=== PATIENT | male | born 1940 | race Caucasian/White ===

== ENCOUNTER 2017-04-16 11:21 | Inpatient (IN) | payer OTHER ==
--- NOTE | 2017-04-16 11:29 | PDOC ---
History of Present Illness - History of Present Illness Initial Comments: 04/16/17 12:19 Mr. Yo is a 76 year old male with a significant past medical history of Colon Cancer with ileostomy bag at 10 of 12 rounds of chemotherapy who presents to the emergency department with olivia blood in his ileostomy bag. The patient denies chest pain, shortness of breath, headache and dizziness. Denies fever, chills, nausea, vomit, diarrhea and constipation. Denies dysuria, frequency, urgency and hematuria. Allergies: KNDA Past surgical history: 1997 R hip replacement and 2012 Right heel surgery Social history: Occasional social drinking (1 beer) PMD - Regla Ivan 04/16/17 12:20 <Rigo Ceron - Last Filed: 04/16/17 16:54> <Olivia Domingo - Last Filed: 04/16/17 17:11> - General Stated Complaint: RECTAL BLEEDING Time Seen by Provider: 04/16/17 11:28 Past History - Past Medical History Anemia: No Asthma: No Cancer: No Cardiac Disorders: No CVA: No COPD: No CHF: No Dementia: No Diabetes: No GI Disorders: No Disorders: No HTN: Yes Hypercholesterolemia: No Liver Disease: No Seizures: No Thyroid Disease: No - Surgical History Orthopedic Surgery: Yes (rt hip replacement 1996) - Immunization History Immunization Up to Date: Yes - Psycho/Social/Smoking Cessation Hx Anxiety: No Suicidal Ideation: No Smoking Status: No Smoking History: Never smoked Have you smoked in the past 12 months: No Number of Cigarettes Smoked Daily: 0 Hx Alcohol Use: No Drug/Substance Use Hx: No Substance Use Type: Alcohol Hx Substance Use Treatment: No <Rigo Ceron - Last Filed: 04/16/17 16:54> <Olivia Domingo - Last Filed: 04/16/17 17:11> - Past Medical History Allergies/Adverse Reactions: Allergies Allergy/AdvReac Type Severity Reaction Status Date / Time No Known Allergies Allergy Verified 04/16/17 11:52 Home Medications: Ambulatory Orders Acetaminophen 650 mg PO BID 04/16/17 Ascorbic Acid [Vitamin C] 500 mg PO DAILY 04/16/17 Diphenoxylate HCl/Atropine [Diphenoxylate-Atrop 2.5-0.025] 1 each PO DAILY 04/16 Loperamide HCl [Loperamide] 2 mg PO TID 04/16/17 Melatonin 3 mg PO HS 04/16/17 Multivitamin [Poly-Vitamin] 1 each PO DAILY 04/16/17 Nebivolol HCl [Bystolic] 2.5 mg PO BID 04/16/17 Ondansetron [Zofran *Odt*] 8 mg SL TID 04/16/17 Prochlorperazine Maleate 10 mg PO DAILY 04/16/17 Ranitidine [Zantac -] 150 mg PO DAILY 04/16/17 Zinc Sulfate 220 mg PO DAILY 04/16/17 Review of Systems - Review of Systems Comments:: 04/16/17 12:20 GENERAL/CONSTITUTIONAL: No fever or chills. No weakness. HEAD, EYES, EARS, NOSE AND THROAT: No change in vision. No ear pain or discharge. No sore throat. CARDIOVASCULAR: No chest pain or shortness of breath RESPIRATORY: No cough, wheezing, or hemoptysis. GASTROINTESTINAL: +blood noted in ileostomy bag and some noted around site. No nausea, vomiting, diarrhea or constipation. GENITOURINARY: No dysuria, frequency, or change in urination. MUSCULOSKELETAL: No joint or muscle swelling or pain. No neck or back pain. SKIN: No rash NEUROLOGIC: No headache, vertigo, loss of consciousness, or change in strength/ sensation. ENDOCRINE: No increased thirst. No abnormal weight change HEMATOLOGIC/LYMPHATIC: No anemia, easy bleeding, or history of blood clots. ALLERGIC/IMMUNOLOGIC: No hives or skin allergy. 04/16/17 12:25 <Rigo Ceron - Last Filed: 04/16/17 16:54> *Physical Exam - Physical Exam Comments: 04/16/17 12:20 GENERAL: Awake, alert, and fully oriented, in no acute distress HEAD: No signs of trauma, normocephalic, atraumatic EYES: PERRLA, EOMI, sclera anicteric, conjunctiva clear ENT: Auricles normal inspection, hearing grossly normal, nares patent, oropharynx clear without exudates. Moist mucosa NECK: Normal ROM, supple, no lymphadenopathy, JVD, or masses LUNGS: No distress, speaks full sentences, clear to auscultation bilaterally HEART: Regular rate and rhythm, normal S1 and S2, no murmurs, rubs or gallops, peripheral pulses normal and equal bilaterally. ABDOMEN: +blood noted in ileostomy bag. Soft, nontender, normoactive bowel sounds. No guarding, no rebound. No masses EXTREMITIES: Normal inspection, Normal range of motion, no edema. No clubbing or cyanosis. NEUROLOGICAL: Cranial nerves II through XII grossly intact. Normal speech, normal gait, no focal sensorimotor deficits SKIN: Warm, Dry, normal turgor, no rashes or lesions noted. 04/16/17 12:25 <Rigo Ceron - Last Filed: 04/16/17 16:54> - Vital Signs Last Vital Signs Temp Pulse Resp BP Pulse Ox 97.9 F 78 17 127/58 100 04/16/17 11:47 04/16/17 11:47 04/16/17 12:05 04/16/17 11:47 04/16/17 12:05 <Olivia Domingo - Last Filed: 04/16/17 17:11> ED Treatment Course - LABORATORY CBC & Chemistry Diagram: 04/16/17 12:05 04/16/17 12:21 <Rigo Ceron - Last Filed: 04/16/17 16:54> - LABORATORY CBC & Chemistry Diagram: 04/16/17 12:05 04/16/17 12:21 - ADDITIONAL ORDERS Additional order review: Laboratory Results 04/16/17 04/16/17 04/16/17 14:11 12:44 12:44 INR 1.64 H PTT (Actin FS) 44.5 H D Sodium Potassium Chloride Carbon Dioxide Anion Gap BUN Creatinine Creat Clearance w eGFR Random Glucose Calcium Total Bilirubin AST ALT Alkaline Phosphatase Total Protein Albumin Lipase Urine Color Yellow Urine Appearance Clear Urine pH 5.0 Urine Protein Negative Urine Glucose (UA) Negative Urine Ketones Negative Urine Blood Negative Urine Nitrite Negative Urine Bilirubin Negative Urine Urobilinogen Negative Ur Leukocyte Esterase Negative Blood Type A NEGATIVE Antibody Screen Negative 04/16/17 12:21 INR PTT (Actin FS) Sodium 142 Potassium 4.3 Chloride 109 H Carbon Dioxide 26 Anion Gap 7 L BUN 23 H D Creatinine 0.7 Creat Clearance w eGFR > 60 Random Glucose 118 H D Calcium 7.6 L Total Bilirubin 1.1 H D AST 50 H D ALT 26 D Alkaline Phosphatase 184 H D Total Protein 5.2 L Albumin 2.5 L Lipase 130 Urine Color Urine Appearance Urine pH Urine Protein Urine Glucose (UA) Urine Ketones Urine Blood Urine Nitrite Urine Bilirubin Urine Urobilinogen Ur Leukocyte Esterase Blood Type Antibody Screen 04/16/17 12:05 RBC 2.30 L D MCV 99.7 H MCHC 33.5 RDW 23.2 H D MPV 8.5 Neutrophils % 69.5 Lymphocytes % 15.9 D Monocytes % 13.7 H Eosinophils % 0.2 D Basophils % 0.7 <Olivia Domingo - Last Filed: 04/16/17 17:11> Medical Decision Making - Medical Decision Making 04/16/17 12:26 Mr. Yo presents in no acute distress complaining of olivia blood in his ileostomy bag. With cancer history will check labs for PT/PTT /INR. Also will check abdominal CT w/ w/out contrast pending kidney functions. 04/16/17 16:[address] Marquez <Rigo Ceron - Last Filed: 04/16/17 16:54> *DC/Admit/Observation/Transfer - Attestations Physician Attestion: 04/16/17 12:26 I, Dr. Rigo Ceron, attest that this document has been prepared under my direction and personally reviewed by me in its entirety. I further attest, that it accurately reflects all work, treatment, procedures and medical decision -making performed by me. <Rigo Ceron - Last Filed: 04/16/17 16:54> - Discharge Dispostion Admit: Yes <Olivia Domingo - Last Filed: 04/16/17 17:11> Diagnosis at time of Disposition: Carcinoma of colon metastatic to liver, Bleeding from colostomy stoma Abdominal pain Qualifiers: Abdominal location: generalized Qualified Code(s): R10.84 - Generalized abdominal pain Anemia Qualifiers: Anemia type: unspecified type Qualified Code(s): D64.9 - Anemia, unspecified - Discharge Dispostion Condition at time of disposition: Improved - Referrals Referrals: Regla Ivan MD [Primary Care Provider] -
--- NOTE | 2017-04-16 12:02 | PDOC ---
Attending Attestation - HPI HPI: The patient is a 76 yo M with a PMHx of HTN, rectal CA, colostomy bag, foot ostemyelitis and dementia who presents BIBA from longterm with blood in colostomy bag since 6:30 this morning. Patient states his stool is typically a dark brown. He denies any oozing outside of the bag. Patient states that on Sep 12, 2016 he experienced knife-like abdominal pain and was seen here. Patient states he was taken to the OR that night for colostomy bag placement. Patient denies abdominal pain currently. Patient states hes currently receiving chemo treatments every two weeks for a total of 12 treatments. Patient notes he has 2 treatments left. Surgical Hx: hip replacement R. Left heel surgery. PCP: Dr. Ivan Oncologist: Dr. Contreras Allergies: NKDA Social Hx: occasional ETOH - Physicial Exam PE: GENERAL: AO x2, in no acute distress HEAD: No signs of trauma EYES: PERRLA, EOMI, sclera anicteric, conjunctiva clear ENT: Auricles normal inspection, hearing grossly normal, nares patent, oropharynx clear without exudates. Moist mucosa NECK: Normal ROM, supple, no lymphadenopathy, JVD, or masses LUNGS: Breath sounds equal, clear to auscultation bilaterally. No wheezes, and no crackles HEART: Regular rate and rhythm, normal S1 and S2, no murmurs, rubs or gallops ABDOMEN: Soft, nontender, normoactive bowel sounds. Ostomy pink. Not prolapsed. Functional. Fresh blood in bag oozing from mucosa. No tear or laceration to ostomy. No guarding, no rebound. No masses EXTREMITIES: Normal range of motion, no edema. No clubbing or cyanosis. No cords, erythema, or tenderness NEUROLOGICAL: Cranial nerves II through XII grossly intact. Normal speech, gait not assessed. SKIN: Warm, Dry, normal turgor, no rashes or lesions noted. - Medical Decision Making Will obtain: -PT PTT -type and screen -Coags -Abdominal CT with IV contrast Will reassess. Documentation prepared by Carmela Keith, acting as director medical economics for Vicente Domingo MD/. <Carmela Keith - Last Filed: 04/16/17 12:08> - ED Attending Attestation I have performed the following: I have examined & evaluated the patient, The case was reviewed & discussed with the resident, I agree w/resident's findings & plan, Exceptions are as noted <Vicente Domingo - Last Filed: 04/20/17 16:50> Discharge Disposition - Discharge Dispostion Last Admission D/C Date: 09/20/16 <Vicente Domingo - Last Filed: 04/20/17 16:50> - Diagnosis Colon cancer metastasized to liver, Bleeding from colostomy stoma Abdominal pain Qualifiers: Abdominal location: generalized Qualified Code(s): R10.84 - Generalized abdominal pain Anemia Qualifiers: Anemia type: unspecified type Qualified Code(s): D64.9 - Anemia, unspecified - Discharge Dispostion Condition at time of disposition: Improved
[2017-04-16 12:35] LABS: BASOPHIL 0.7 % (0-2.0); EOSINOPHIL 0.2 % (0-4.5); MCH 33.4 pg (25.7-33.7); MCHC 33.5 g/dl (32.0-35.9); MEAN CELL VOLUME 99.7 fl (80-96); MEAN PLT VOLUME 8.5 fl (7.5-11.1); NEUTROPHILS 69.5 % (42.8-82.8); PLATELET COUNT 59 K/MM3 (134-434); RDW 23.2 % (11.9-15.9); WHITE BLOOD COUNT 3.7 K/mm3 (4.0-10.0)
[2017-04-16 12:48] LABS: INR 1.64 (0.82-1.09); PROTHROMBIN TIME (PATIENT) 18.2 SEC (9.98-11.88)
[2017-04-16 12:51] LABS: ACTIVATED PTT 44.5 SECONDS (26.9-34.4)
[2017-04-16 13:01] LABS: ALBUMIN 2.5 g/dl (3.4-5.0); ALK PHOS 184 U/L (45-117); ANION GAP 7 (8-16); BILIRUBIN,TOTAL 1.1 mg/dL (0.2-1.0); CALCIUM 7.6 mg/dL (8.5-10.1); CO2 26 mmol/L (21-32); CREATININE 0.7 mg/dL (0.7-1.3); GLUCOSE,RANDOM 118 mg/dL (74-106); SGOT/AST 50 U/L (15-37); SGPT/ALT 26 U/L (12-78); TOT PROT 5.2 g/dl (6.4-8.2)
[2017-04-16 13:57] LABS: PLATELET ESTIMATE DECREASED (NORMAL)
[2017-04-16 14:48] LABS: URINE APPEARANCE CLEAR; URINE BILIRUBIN NEGATIVE (NEGATIVE); URINE BLOOD NEGATIVE (NEGATIVE); URINE COLOR YELLOW; URINE GLUCOSE (UA) NEGATIVE (NEGATIVE); URINE KETONE NEGATIVE (NEGATIVE); URINE LEUK ESTERASE NEGATIVE (NEGATIVE); URINE NITRITE NEGATIVE (NEGATIVE); URINE PROTEIN NEGATIVE (NEGATIVE); URINE UROBILINOGEN NEGATIVE E.U./dl (0.2-1.0)
[2017-04-16 19:13] VITALS: BMI 24.8
[2017-04-16] MEDS ORDERED: ONDANSETRON *ODT* 4 MG TABLET SL PRN (22:30)
[2017-04-16] MEDS ORDERED: ACETAMINOPHEN 325 MG TABLET (FP) PO PRN (22:30)
[2017-04-16] MEDS ORDERED: RAMELTEON 8 MG TABLET PO SCH (22:45)
[2017-04-17] MEDS: MELATONIN 1 MG TABLET PO SCH ×2 (01:25→22:23)
[2017-04-17] MEDS: POTASSIUM CHLORIDE 10 MEQ in SODIUM CHLORIDE 0.45% 1,000 ML IVPB SCH ×3 (01:28→19:38)
[2017-04-17 07:58] LABS: MCH 32.5 pg (25.7-33.7); MCHC 34.5 g/dl (32.0-35.9); MEAN CELL VOLUME 94.3 fl (80-96); MEAN PLT VOLUME 10.4 fl (7.5-11.1); PLATELET COUNT 70 K/MM3 (134-434); RDW 23.2 % (11.9-15.9); WHITE BLOOD COUNT 4.1 K/mm3 (4.0-10.0)
[2017-04-17 08:35] LABS: ALBUMIN 2.5 g/dl (3.4-5.0); ALK PHOS 175 U/L (45-117); ANION GAP 5 (8-16); BILIRUBIN,TOTAL 3.5 mg/dL (0.2-1.0); CALCIUM 7.9 mg/dL (8.5-10.1); CO2 27 mmol/L (21-32); CREATININE 0.7 mg/dL (0.7-1.3); GLUCOSE,RANDOM 94 mg/dL (74-106); SGOT/AST 52 U/L (15-37); SGPT/ALT 24 U/L (12-78)
--- NOTE | 2017-04-17 09:59 | CON.GI ---
Consult Consult Specialty:: GI Referred by:: Dr. Davis Reason for Consultation:: Blood in ileostomy - History of Present Illness Chief Complaint: I saw blood in my ileostimy bag History of Present Illness: 76M admitted from [place] for evaluation of blood in ileostomy bag. There has been no bleeding since admission. He had a cecal perforation in 09/23 and underwent diverting ileostomy and right hemicolectomy. Pathology revealed adenoca of the colon and he has liver metastases. He is undergoing chemotherapy. He denies abdominal pain , nausea, vomiting. He has an appointment to see Dr. Bragg this week. He changes his ileostomy about three-four times per day. CT scan of the abdomen and pelvis revealed multiple liver lesions c/w metastatic disease. He is ? scheduled for liver biopsy tomorrow. Initial Hgb was 7.7. He received 2 U PRBC and current H/H is 8.8. He is also thrombocytopenic, coagulopathic and liver chemistries are elevated. - History Source History Provided By: Patient Limitations to Obtaining History: No Limitations - Past Medical History Cardio/Vascular: Yes: HTN, Other (tricuspid regurgitation from echo 09/23) Gastrointestinal: Yes: Constipation Heme/Onc: Yes: Cancer (Right sided colon cancer metastatic to the liver) Musculoskeletal: Yes: Osteoarthritis - Past Surgical History Past Surgical History: Yes: Ileosotomy (green/brown stool in ileostomy), Joint Replacement (Right hip) - Alcohol/Substance Use Hx Alcohol Use: No History of Substance Use: reports: None - Smoking History Smoking history: Never smoked Have you smoked in the past 12 months: No Aproximately how many cigarettes per day: 0 - Social History ADL: Support Services Place of : [facility] History of Recent Travel: No Home Medications - Allergies Allergies/Adverse Reactions: Allergies Allergy/AdvReac Type Severity Reaction Status Date / Time No Known Allergies Allergy Verified 04/16/17 11:52 - Home Medications Home Medications: Ambulatory Orders Acetaminophen 650 mg PO ASDIR 04/16/17 Ascorbic Acid [Vitamin C] 500 mg PO DAILY 04/16/17 Diphenoxylate HCl/Atropine [Diphenoxylate-Atrop 2.5-0.025] 1 each PO Q8H Loperamide HCl [Loperamide] 2 mg PO TID 04/16/17 Melatonin 3 mg PO HS 04/16/17 Multivitamin with Minerals [Icaps Plus] 1 each PO DAILY 04/16/17 Nutritional Supplement [Hi-Ian] 120 ml PO TID 04/16/17 Ondansetron [Zofran *Odt*] 8 mg SL TID PRN 04/16/17 Prochlorperazine Maleate 10 mg PO Q8H PRN 04/16/17 Ranitidine [Zantac -] 150 mg PO DAILY 04/16/17 Review of Systems - Review of Systems Cardiovascular: denies: Chest Pain Respiratory: denies: SOB Gastrointestinal: reports: Other (Blood from ileostomy that has resolved). denies: Abdominal Pain, Rectal Bleeding Physical Exam-GI Vital Signs: Vital Signs Temperature 98.0 F 04/17/17 06:23 Pulse Rate 71 04/17/17 06:23 Respiratory Rate 18 04/17/17 06:23 Blood Pressure 99/46 04/17/17 06:23 O2 Sat by Pulse Oximetry (%) 96 04/16/17 21:00 Constitutional: Yes: Calm Eyes: No: Sclera Icterus Cardiovascular: Yes: Murmur (holosystolic) Respiratory: Yes: CTA Bilaterally Gastrointestinal Inspection: Yes: Scars, Other (Right sided ostomy). No: Distention ...Auscultate: Yes: Normoactive Bowel Sounds ...Palpate: No: Tenderness Edema: No Neurological: Yes: Alert, Oriented Labs: CBC, BMP 04/17/17 06:10 04/17/17 06:10 INR, PTT INR 1.64 (0.82-1.09) H 04/16/17 12:44 Imaging - Results Cat Scan: Report Reviewed, Image Reviewed Problem List - Problems (1) Hemorrhage from ileostomy Assessment/Plan: No further bleeding No blood in ileostoimy Can perform EGD / Limited ileoscopy Surgical evaluation of ileostomy stoma Discussed risks of procedure like but not limited to bleeding, perforation requiring surgery to repair, infection, sedation medication effects all of which could be potentially life threatening. He has agreed to the procedure. Code(s): K94.11 - ENTEROSTOMY HEMORRHAGE (2) Colon cancer metastasized to liver Assessment/Plan: He has liver metastases. The purpose of the colonoscopy would be as a preoperative measure prior to take down of the ileostomy. If he has liver metastases in setting of continued chemo will they still opt for take down of ileostomy? Surgical / heme follow-up regarding this. He had a liver biopsy ? scheduled as an outpatient with Dr. Hardin. ? if this will be pursued as an inpatient. Heme input regarding this Code(s): C18.9 - MALIGNANT NEOPLASM OF COLON, UNSPECIFIED C78.7 - SECONDARY MALIG NEOPLASM OF LIVER AND INTRAHEPATIC BILE DUCT (3) Thrombocytopenia Assessment/Plan: Along with elevated liver chemistries ? if chemo related / related to progression of the disease in his liver Heme evaluation regarding this Code(s): D69.6 - THROMBOCYTOPENIA, UNSPECIFIED
[2017-04-17] MEDS: ASCORBIC ACID 500 MG TABLET (FP) PO SCH (10:37)
[2017-04-17] MEDS: RANITIDINE HCL 150 MG TABLET (FP) PO SCH (10:37)
[2017-04-17] MEDS: MULTIVITAMINS THER W-MINERALS COMBO TABLET (FP) PO SCH (14:25)
[2017-04-17] MEDS ORDERED: PHYTONADIONE 10 MG/1 ML AMP SQ ONE (16:59)
--- NOTE | 2017-04-17 16:59 | HP ---
Admitting History and Physical - Primary Care Physician PCP: Shant Davis - Admission Chief Complaint: GIB. Anemia History of Present Illness: Pt wastransfered to ER from [place] for blood in ileostomy bag. In ER he was noticed to be anemic, and was admitted for PRBC transfusion and further evaluation. Pt has a history of colon CA (last September), s/p colon resection and ileosotmy; pt also with left heal ulcer; pt was transfered to [facility] where he resides since. History Source: Patient Limitations to Obtaining History: No Limitations - Past Medical History Cardiovascular: Yes: HTN, Other (tricuspid regurgitation from echo 09/23) Gastrointestinal: Yes: Constipation Heme/Onc: Yes: Cancer (Right sided colon cancer metastatic to the liver) Musculoskeletal: Yes: Osteoarthritis - Past Surgical History Past Surgical History: Yes: Ileosotomy (green/brown stool in ileostomy), Joint Replacement (Right hip) - Advance Directives Advance Directives: Yes: Health Care Proxy - Smoking History Smoking history: Never smoked Have you smoked in the past 12 months: No Aproximately how many cigarettes per day: 0 - Alcohol/Substance Use Hx Alcohol Use: No History of Substance Use: reports: None - Social History ADL: Support Services History of Recent Travel: No Home Medications - Allergies Allergies/Adverse Reactions: Allergies Allergy/AdvReac Type Severity Reaction Status Date / Time No Known Allergies Allergy Verified 04/16/17 11:52 - Home Medications Home Medications: Ambulatory Orders Acetaminophen 650 mg PO ASDIR 04/16/17 Ascorbic Acid [Vitamin C] 500 mg PO DAILY 04/16/17 Diphenoxylate HCl/Atropine [Diphenoxylate-Atrop 2.5-0.025] 1 each PO Q8H Loperamide HCl [Loperamide] 2 mg PO TID 04/16/17 Melatonin 3 mg PO HS 04/16/17 Multivitamin with Minerals [Icaps Plus] 1 each PO DAILY 04/16/17 Nutritional Supplement [Hi-Ian] 120 ml PO TID 04/16/17 Ondansetron [Zofran *Odt*] 8 mg SL TID PRN 04/16/17 Prochlorperazine Maleate 10 mg PO Q8H PRN 04/16/17 Ranitidine [Zantac -] 150 mg PO DAILY 07/09/17 Family Disease History - Family Disease History Family Disease History: Diabetes: Father Review of Systems - Review of Systems Constitutional: denies: Chills, Fever Eyes: denies: Blurred Vision, Double Vision, Recent Change in Vision HENT: denies: Ear Discharge, Ear Pain, Throat Pain Neck: denies: Pain on Movement, Stiffness Cardiovascular: denies: Chest Pain, Edema, Palpitations, Shortness of Breath Respiratory: denies: Cough, SOB, SOB on Exertion Gastrointestinal: denies: Abdominal Pain, Diarrhea, Nausea, Vomiting Genitourinary: denies: Burning, Discharge, Flank Pain Musculoskeletal: denies: Back Pain, Joint Swelling Integumentary: denies: Blister, Rash Neurological: denies: Change in LOC, Incoordination, Numbness Endocrine: denies: Excessive Sweating, Intolerance to Cold Hematology/Lymphatic: denies: Easily Bruised, Excessive Bleeding Psychiatric: denies: Altered Sleep Pattern, Anxiety, Depression Physical Examination Vital Signs: Vital Signs Temperature 97.9 F 04/17/17 15:56 Pulse Rate 63 04/17/17 15:56 Respiratory Rate 18 04/17/17 15:56 Blood Pressure 101/48 04/17/17 15:56 O2 Sat by Pulse Oximetry (%) 96 04/17/17 09:00 Constitutional: Yes: No Distress, Calm Eyes: Yes: EOM Intact, PERRL HENT: Yes: Normocephalic. No: Epistaxis, Thrush Neck: Yes: Trachea Midline. No: Lymphadenopathy Cardiovascular: Yes: Regular Rate and Rhythm, Murmur, S1, S2 Respiratory: Yes: Regular, CTA Bilaterally. No: Rales Gastrointestinal: Yes: Normal Bowel Sounds, Soft, Other (+ ileostomy wiht brown stool) ...Rectal Exam: Yes: Deferred Renal/: No: Bladder Distention, CVA Tenderness - Left, CVA Tenderness - Right Musculoskeletal: No: Back Pain, Joint Stiffness, Joint Swelling Edema: No Neurological: Yes: Alert, Oriented Labs: CBC, BMP 04/17/17 06:10 04/17/17 06:10 Imaging - Results Cat Scan: Report Reviewed Problem List - Problems (1) Anemia Code(s): D64.9 - ANEMIA, UNSPECIFIED Qualifiers: Anemia type: unspecified type Qualified Code(s): D64.9 - Anemia, unspecified (2) Bleeding from colostomy stoma Code(s): K94.01 - COLOSTOMY HEMORRHAGE (3) Liver mass Code(s): R16.0 - HEPATOMEGALY, NOT ELSEWHERE CLASSIFIED Assessment/Plan s/p PRBC Tx monitor CBC Gi, Sx, Onco consult AM labs
--- NOTE | 2017-04-17 18:02 | CONSULT ---
Consult - text type - Consultation Consultation Note: 76M admitted from [place] for evaluation of blood in ileostomy bag. He had a cecal perforation in 09/23 and underwent diverting ileostomy and right hemicolectomy. Pathology revealed adenoca of the colon and he has liver metastases. He is undergoing chemotherapy. He denies abdominal pain , nausea, vomiting. He changes his ileostomy about three-[address] scan of the abdomen and pelvis revealed multiple liver lesions c/w metastatic disease. He is ? scheduled for liver biopsy tomorrow. He is also thrombocytopenic, coagulopathic and liver chemistries are elevated. - Past Medical History Cardio/Vascular: Yes: HTN, Other (tricuspid regurgitation from echo 09/23) Gastrointestinal: Yes: Constipation Heme/Onc: Yes: Cancer (Right sided colon cancer metastatic to the liver) Musculoskeletal: Yes: Osteoarthritis - Past Surgical History Past Surgical History: Yes: Ileosotomy (green/brown stool in ileostomy), Joint Replacement (Right hip) - Smoking History Smoking history: Never smoked - Social History ADL: Support [facility] Home Medications - Allergies Allergies/Adverse Reactions: Allergies Allergy/AdvReac Type Severity Reaction Status Date / Time No Known Allergies Allergy Verified 04/16/17 11:52 - Home Medications Home Medications: Ambulatory Orders Acetaminophen 650 mg PO ASDIR 04/16/17 Ascorbic Acid [Vitamin C] 500 mg PO DAILY 04/16/17 Diphenoxylate HCl/Atropine [Diphenoxylate-Atrop 2.5-0.025] 1 each PO Q8H Loperamide HCl [Loperamide] 2 mg PO TID 04/16/17 Melatonin 3 mg PO HS 04/16/17 Multivitamin with Minerals [Icaps Plus] 1 each PO DAILY 04/16/17 Nutritional Supplement [Hi-Ian] 120 ml PO TID 04/16/17 Ondansetron [Zofran *Odt*] 8 mg SL TID PRN 04/16/17 Prochlorperazine Maleate 10 mg PO Q8H PRN 04/16/17 Ranitidine [Zantac -] 150 mg PO DAILY 04/16/17 Vital Signs: Vital Signs Temperature 98.0 F 04/17/17 06:23 Pulse Rate 71 04/17/17 06:23 Respiratory Rate 18 04/17/17 06:23 Blood Pressure 99/46 04/17/17 06:23 O2 Sat by Pulse Oximetry (%) 96 04/16/17 21:00 Constitutional: Yes: Calm Eyes: No: Sclera Icterus Cardiovascular: Yes: Murmur (holosystolic) Respiratory: Yes: CTA Bilaterally Gastrointestinal Inspection: Yes: Scars, Other (Right sided ostomy). No: Distention ...Auscultate: Yes: Normoactive Bowel Sounds Neurological: Yes: Alert, Oriented Labs: Abnormal Lab Results 04/16/17 04/17/17 04/17/17 12:44 06:10 06:10 RBC 2.71 L Hgb 8.8 L D Hct 25.6 L RDW 23.2 H Plt Count 70 L Chloride 109 H Anion Gap 5 L Calcium 7.9 L Total Bilirubin 3.5 H D AST 52 H Alkaline Phosphatase 175 H Total Protein 5.0 L Albumin 2.5 L Crossmatch See Detail Imaging - Results Cat Scan: Report Reviewed, Image Reviewed A/P Pt is a 76yr old man with PMHx htn and foot osteo. s/p ex lap in 09/23, found to have dilated cecum with perforation close to the ileocecal junction, constricting hepatic flexure tumor, small bowel root of the mesentery with edema. s/p right hemicolectomy, diverting loop ileostomy, abdominal washout. pT4, N1b ASCENDING COLON MASS, POORLY DIFFERENTIATED, MARGINS NEG. stage III colon cancer on pathology in 09/[address] Casey as outpatient. Has been on XELOX s/p 07/20 cycles. But recent imaging concerning for liver mets. PAtient was scheduled for liver biopsy via IR for wed. as outpatient Was also scheduled for posssible reversal of ileostomy in near future Comes in with bledingthrough ileostomy site. Seen by gi For EGD in am Thrombocytopenia: from recent chemotherapy? Monitor transfuse as necessary Coagulopathy-- trial of vitaminn K. ? liver mets Will need FFP/platelets prior to liver biopsy
--- NOTE | 2017-04-17 23:20 | CONSULT ---
Consult Consult Specialty:: Surgery - History of Present Illness Chief Complaint: GI BLEEDING History of Present Illness: 76 y.o. male well known to me with history of perforated right colon cancer in 09/23 for which he underwent emergency right hemicolectomy and diverting loop ileostomy. Patient is currenly admitted for GI bleeding. Had episode of bloody ileostomy effluent a few months ago. - History Source History Provided By: Patient Limitations to Obtaining History: No Limitations - Past Medical History Cardio/Vascular: Yes: HTN, Other (tricuspid regurgitation from echo 09/23) Gastrointestinal: Yes: Cancer, Constipation Musculoskeletal: Yes: Osteoarthritis - Past Surgical History Past Surgical History: Yes: Colectomy, Ileosotomy (green/brown stool in ileostomy), Joint Replacement (Right hip) - Alcohol/Substance Use Hx Alcohol Use: No History of Substance Use: reports: None - Smoking History Smoking history: Never smoked Have you smoked in the past 12 months: No Aproximately how many cigarettes per day: 0 - Social History ADL: Support Services History of Recent Travel: No Home Medications - Allergies Allergies/Adverse Reactions: Allergies Allergy/AdvReac Type Severity Reaction Status Date / Time No Known Allergies Allergy Verified 04/16/17 11:52 - Home Medications Home Medications: Ambulatory Orders Acetaminophen 650 mg PO ASDIR 04/16/17 Ascorbic Acid [Vitamin C] 500 mg PO DAILY 04/16/17 Diphenoxylate HCl/Atropine [Diphenoxylate-Atrop 2.5-0.025] 1 each PO Q8H Loperamide HCl [Loperamide] 2 mg PO TID 04/16/17 Melatonin 3 mg PO HS 04/16/17 Multivitamin with Minerals [Icaps Plus] 1 each PO DAILY 04/16/17 Nutritional Supplement [Hi-Ian] 120 ml PO TID 04/16/17 Ondansetron [Zofran *Odt*] 8 mg SL TID PRN 04/16/17 Prochlorperazine Maleate 10 mg PO Q8H PRN 04/16/17 Ranitidine [Zantac -] 150 mg PO DAILY 04/16/17 Family Disease History - Family Disease History Family Disease History: Diabetes: Father Physical Exam Vital Signs: Vital Signs Temperature 99.1 F 04/17/17 22:27 Pulse Rate 77 04/17/17 22:27 Respiratory Rate 18 04/17/17 22:27 Blood Pressure 102/65 04/17/17 22:27 O2 Sat by Pulse Oximetry (%) 96 04/17/17 09:00 Constitutional: Yes: Calm HENT: Yes: Other ( + epistaxis) Cardiovascular: Yes: Regular Rate and Rhythm Respiratory: Yes: CTA Bilaterally Gastrointestinal: Yes: Soft, Hernia (+ parastomal hernia ,non-reducible but not obstructed) ...Rectal Exam: Yes: Deferred Renal/: Yes: WNL Extremities: Yes: WNL Integumentary: Yes: WNL Wound/Incision: Yes: Other (1 cm skin defect at upper 3rd with good granulation tissue) Neurological: Yes: WNL Labs: CBC, BMP 04/17/17 06:10 04/17/17 06:10 Imaging - Results Cat Scan: Report Reviewed, Image Reviewed Assessment/Plan 1. GI BLEEDING, R/O PUD - agree with EGD 2. PARASTOMAL HERNIA, INCARCERATED BUT NO OBSTRUCTION no intervention necessary at this time ileostomy reversal after chemotherapy if other cancer related issues are resolved Correct thrombocytopenia and coagulopathy
[2017-04-18 08:25] LABS: MCHC 33.8 g/dl (32.0-35.9); MEAN CELL VOLUME 94.7 fl (80-96); MEAN PLT VOLUME 8.5 fl (7.5-11.1); PLATELET COUNT 61 K/MM3 (134-434); RDW 24.2 % (11.9-15.9); WHITE BLOOD COUNT 3.8 K/mm3 (4.0-10.0)
[2017-04-18 08:45] LABS: INR 1.44 (0.82-1.09)
[2017-04-18 08:48] LABS: ACTIVATED PTT 42.9 SECONDS (26.9-34.4)
[2017-04-18 08:51] LABS: ALBUMIN 2.6 g/dl (3.4-5.0); ANION GAP 8 (8-16); CALCIUM 8.6 mg/dL (8.5-10.1); CO2 25 mmol/L (21-32); CREATININE 0.6 mg/dL (0.7-1.3); GLUCOSE,RANDOM 77 mg/dL (74-106); SGOT/AST 50 U/L (15-37); SGPT/ALT 23 U/L (12-78)
[2017-04-18 08:54] LABS: ALK PHOS 170 U/L (45-117); BILIRUBIN,TOTAL 2.5 mg/dL (0.2-1.0); TOT PROT 5.2 g/dl (6.4-8.2)
--- NOTE | 2017-04-18 09:27 | PN ---
Progress Note (short form) - Note Progress Note: Nurse Vandana called to tell me that Mr. Yo having active epistaxis EGD cancelled due to significant epistaxis ENT to evaluate Correct coagulopathy Problem List - Problems (1) Hemorrhage from ileostomy Code(s): K94.11 - ENTEROSTOMY HEMORRHAGE (2) Colon cancer metastasized to liver Code(s): C18.9 - MALIGNANT NEOPLASM OF COLON, UNSPECIFIED C78.7 - SECONDARY MALIG NEOPLASM OF LIVER AND INTRAHEPATIC BILE DUCT (3) Thrombocytopenia Code(s): D69.6 - THROMBOCYTOPENIA, UNSPECIFIED
--- NOTE | 2017-04-18 10:50 | PN ---
Progress Note, Physician History of Present Illness: Pt w/o SOB, CP, dizziness, abd pain. Pt with blood clots in the nose and mouth. Pt with nose bleed since last night after sneezed. - Current Medication List Current Medications: Active Medications Acetaminophen (Tylenol -) 650 mg PO Q6H PRN Ascorbic Acid (Vitamin C -) 500 mg PO DAILY [facility] Last Admin: 04/17/17 10:37 Dose: 500 mg Potassium Chloride 10 meq/ (Sodium Chloride) 1,005 mls @ 50 mls/hr IVPB Q20H [facility] Last Admin: 04/17/17 19:38 Dose: Not Given Melatonin (Melatonin) 3 mg PO HS [facility] Last Admin: 04/17/17 22:23 Dose: 3 mg Multivitamins/Minerals (Theragran-M) 1 each PO DAILY [facility] Last Admin: 04/17/17 14:25 Dose: 1 each Ondansetron HCl (Zofran Odt -) 8 mg SL TID PRN PRN Reason: NAUSEA Phytonadione (Aqua Mephyton Injection -) 5 mg SQ DAILY [facility] Stop: 04/21/17 09:59 Ranitidine HCl (Zantac -) 150 mg PO DAILY [facility] Last Admin: 04/17/17 10:37 Dose: 150 mg - Objective Vital Signs: Vital Signs Temperature 98.2 F 04/18/17 08:37 Pulse Rate 91 H 04/18/17 08:37 Respiratory Rate 24 04/18/17 08:37 Blood Pressure 135/73 04/18/17 08:37 O2 Sat by Pulse Oximetry (%) 97 04/17/17 21:00 Constitutional: Yes: No Distress, Calm Eyes: Yes: Conjunctiva Clear, EOM Intact HENT: Yes: Normocephalic, Epistaxis Neck: Yes: Supple, Trachea Midline Cardiovascular: Yes: Regular Rate and Rhythm, S1, S2 Respiratory: Yes: Regular, CTA Bilaterally. No: Rales Edema: No Neurological: Yes: Alert, Oriented Labs: CBC, BMP 04/18/17 07:35 04/18/17 07:35 INR, PTT INR 1.44 (0.82-1.09) H 04/18/17 07:35 Problem List - Problems (1) Anemia Code(s): D64.9 - ANEMIA, UNSPECIFIED Qualifiers: Anemia type: unspecified type Qualified Code(s): D64.9 - Anemia, unspecified (2) Bleeding from colostomy stoma Code(s): K94.01 - COLOSTOMY HEMORRHAGE (3) Liver mass Code(s): R16.0 - HEPATOMEGALY, NOT ELSEWHERE CLASSIFIED (4) Epistaxis Code(s): R04.0 - EPISTAXIS Assessment/Plan s/p PRBC Tx monitor CBC GI consult appreciated, case was d/w Dr. Gill Eubanks; procedure was cancelled secondary to nose bleed. Sx consult appreciated. Onco consult appreciated ENT consult AM labs
[2017-04-18] MEDS: PHYTONADIONE 10 MG/1 ML AMP SQ SCH (12:15)
[2017-04-18] MEDS: ASCORBIC ACID 500 MG TABLET (FP) PO SCH (12:18)
[2017-04-18] MEDS: MULTIVITAMINS THER W-MINERALS COMBO TABLET (FP) PO SCH (12:18)
[2017-04-18] MEDS: RANITIDINE HCL 150 MG TABLET (FP) PO SCH (12:18)
--- NOTE | 2017-04-18 12:46 | EKG ---
Test Reason : Blood Pressure : / mmHG Vent. Rate : 079 BPM Atrial Rate : 079 BPM P-R Int : 158 ms QRS Dur : 094 ms QT Int : 392 ms P-R-T Axes : 040 071 027 degrees QTc Int : 449 ms NORMAL SINUS RHYTHM NORMAL ECG WHEN COMPARED WITH ECG OF 12-SEP-2016 10:51, T WAVE INVERSION NO LONGER EVIDENT IN INFERIOR LEADS NONSPECIFIC T WAVE ABNORMALITY NO LONGER EVIDENT IN LATERAL LEADS Confirmed by SHEIKH MARILY, KRYSTIN ([id number]) on 04/18/2017 12:45:45 PM Referred By: Iveth FRANCISCO Confirmed By:KRYSTIN RODGERS MD
--- NOTE | 2017-04-18 19:00 | PN ---
Progress Note (short form) - Note Progress Note: Patient seen and examined , daughter at bedside and issues discussed. Developed yesterday , epistaxis from right nares, today from left nares. Had some packing done by nurses, but will be seen by ENT to assess. Has coagulopathy and thrombocytopenia.. Has been receiving xeloda and oxaliplatin Xeloda dose is 1500 mg BID. Took Xeloda beginning 04/14 thru 04/16 and took only one dose on 04/16. Was scheduled for liver biopsy today as outpatient-- now on hold until current problems resolve. Last Vital Signs Temp Pulse Resp BP Pulse Ox 97.7 F 69 22 114/48 97 04/18/17 15:24 04/18/17 15:24 04/18/17 15:24 04/18/17 15:24 04/18/17 11:00 Packing left nares Lungs - diminished breath sounds Cor-RSR Abd- liquidy black ileostomy drainage Extremities RLE> LLE CBC, BMP 04/18/17 07:35 04/18/17 07:35 INR, PTT INR 1.44 (0.82-1.09) H 04/18/17 07:35 Current Medications Generic Name Dose Route Start Last Admin Trade Name Freq PRN Reason Stop Dose Admin Acetaminophen 650 mg 04/16/17 22:30 Tylenol - PO Q6H PRN Ascorbic Acid 500 mg 04/17/17 10:00 04/18/17 12:18 Vitamin C - PO 500 mg DAILY [facility] Administration Potassium Chloride 10 meq/ 1,005 mls @ 50 mls/hr 04/16/17 23:30 04/17/17 19:38 Sodium Chloride IVPB Not Given Q20H [facility] Melatonin 3 mg 04/16/17 23:15 04/17/17 22:23 Melatonin PO 3 mg HS [facility] Administration Multivitamins/Minerals 1 each 04/17/17 12:45 04/18/17 12:18 Theragran-M PO 1 each DAILY [facility] Administration Ondansetron HCl 8 mg 04/16/17 22:30 Zofran Odt - SL TID PRN NAUSE[facility] Phytonadione 5 mg 04/18/17 10:00 04/18/17 12:15 Aqua Mephyton Injection - SQ 04/21/17 09:59 5 mg DAILY [facility] Administration Ranitidine HCl 150 mg 04/17/17 10:00 04/18/17 12:18 Zantac - PO 150 mg DAILY [facility] Administration Impression: Colon ca Liver mets most likely Coagulopathy secondary to liver mets Thrombocytopenia secondary to underlying liver mets and chemotherapy Anemia- bleeding leukopenia- ? secondary to chemotherapy Plan:: Correct coagulopathy and thrombocytopenia with FFP and platelets ENT follow up GI assessment after above
[2017-04-18] MEDS: MELATONIN 1 MG TABLET PO SCH (22:23)
[2017-04-19] MEDS: POTASSIUM CHLORIDE 10 MEQ in SODIUM CHLORIDE 0.45% 1,000 ML IVPB SCH ×2 (03:37→15:27)
[2017-04-19 08:18] LABS: INR 1.34 (0.82-1.09); PROTHROMBIN TIME (PATIENT) 14.8 SEC (9.98-11.88)
[2017-04-19 08:21] LABS: ACTIVATED PTT 37.5 SECONDS (26.9-34.4)
[2017-04-19 08:37] LABS: ALBUMIN 2.9 g/dl (3.4-5.0); ANION GAP 9 (8-16); CALCIUM 8.2 mg/dL (8.5-10.1); CO2 26 mmol/L (21-32); CREATININE 0.6 mg/dL (0.7-1.3); GLUCOSE,RANDOM 81 mg/dL (74-106); SGOT/AST 59 U/L (15-37); SGPT/ALT 30 U/L (12-78)
[2017-04-19 08:39] LABS: ALK PHOS 204 U/L (45-117); BILIRUBIN,TOTAL 2.5 mg/dL (0.2-1.0); TOT PROT 5.8 g/dl (6.4-8.2)
--- NOTE | 2017-04-19 10:07 | CON.ENT ---
Consult Consult Specialty:: ENT Reason for Consultation:: epistaxis - History of Present Illness Chief Complaint: epistaxis History of Present Illness: 76 yo M with hx colon CA s/p hemicolectomy and ileostomy underooing chemotherapy in short term rehabilitation at [facility]. 3 days ago noted blood in ileostomy bag, admitted to [facility] anemia and thrombocytopenia, CT scan shows liver masses c/w metastatic disease liver biopsy scheduled yesterday but pt developed spontaneous nasal bleeding right then left, now resolved pt transfused, H/H improved liver biopsy postsponed until coagulation improved GI and Hematology/Oncology consultations reviewed denies prior problems with epistaxis no prior nasal or sinus conditions reported, denies sinusitis or allergic rhinitis occasional sneezing episodes - History Source History Provided By: Patient, Medical Record Limitations to Obtaining History: No Limitations - Past Medical History Cardio/Vascular: Yes: HTN, Other (tricuspid regurgitation from echo 09/23) Gastrointestinal: Yes: Cancer, Constipation Musculoskeletal: Yes: Osteoarthritis - Past Surgical History Past Surgical History: Yes: Colectomy, Ileosotomy (green/brown stool in ileostomy), Joint Replacement (Right hip) - Alcohol/Substance Use Hx Alcohol Use: No History of Substance Use: reports: None - Smoking History Smoking history: Never smoked Have you smoked in the past 12 months: No Aproximately how many cigarettes per day: 0 - Social History ADL: Support Services History of Recent Travel: No Home Medications - Allergies Allergies/Adverse Reactions: Allergies Allergy/AdvReac Type Severity Reaction Status Date / Time No Known Allergies Allergy Verified 04/16/17 11:52 - Home Medications Home Medications: Ambulatory Orders Acetaminophen 650 mg PO ASDIR 04/16/17 Ascorbic Acid [Vitamin C] 500 mg PO DAILY 04/16/17 Diphenoxylate HCl/Atropine [Diphenoxylate-Atrop 2.5-0.025] 1 each PO Q8H Loperamide HCl [Loperamide] 2 mg PO TID 04/16/17 Melatonin 3 mg PO HS 04/16/17 Multivitamin with Minerals [Icaps Plus] 1 each PO DAILY 04/16/17 Nutritional Supplement [Hi-Ian] 120 ml PO TID 04/16/17 Ondansetron [Zofran *Odt*] 8 mg SL TID PRN 04/16/17 Prochlorperazine Maleate 10 mg PO Q8H PRN 04/16/17 Ranitidine [Zantac -] 150 mg PO DAILY 04/16/17 Family Disease History - Family Disease History Family Disease History: Diabetes: Father Physical Exam-ENT Vital Signs: Vital Signs Temperature 99.0 F 04/19/17 05:00 Pulse Rate 73 04/19/17 05:00 Respiratory Rate 18 04/19/17 05:00 Blood Pressure 119/63 04/19/17 05:00 O2 Sat by Pulse Oximetry (%) 97 04/18/17 21:00 Constitutional: Yes: No Distress, Calm Head: Yes: WNL Face: Yes: WNL Eyes: Yes: WNL Nose: Yes: Other (no bleeding) Outer Ear: Yes: WNL Respiratory: Yes: WNL Neurological: Yes: Alert, Oriented Imaging - Results Cat Scan: Report Reviewed, Image Reviewed Problem List - Problems (1) Epistaxis Assessment/Plan: acute epistaxis yesterday, now resolved coagulopathy and thrombocytopenia from underlying cancer, liver involvement and chemotherapy Recommend: nasal saline spray since not actively bleeding no packing or cauterization indicated observe Thank you for consultation Keith Brooks MD FACS Code(s): R04.0 - EPISTAXIS
[2017-04-19] MEDS: MULTIVITAMINS THER W-MINERALS COMBO TABLET (FP) PO SCH (10:36)
[2017-04-19] MEDS: RANITIDINE HCL 150 MG TABLET (FP) PO SCH (10:37)
[2017-04-19] MEDS: ASCORBIC ACID 500 MG TABLET (FP) PO SCH (10:38)
[2017-04-19] MEDS: PHYTONADIONE 10 MG/1 ML AMP SQ SCH (10:39)
--- NOTE | 2017-04-19 10:41 | PN ---
Progress Note, Physician History of Present Illness: Pt w/o SOB, CP, dizziness, abd pain. Pt w/o nose bleed since yesterday - Current Medication List Current Medications: Active Medications Acetaminophen (Tylenol -) 650 mg PO Q6H PRN Ascorbic Acid (Vitamin C -) 500 mg PO DAILY [facility] Last Admin: 04/18/17 12:18 Dose: 500 mg Potassium Chloride 10 meq/ (Sodium Chloride) 1,005 mls @ 50 mls/hr IVPB Q20H [facility] Last Admin: 04/19/17 03:37 Dose: Not Given Melatonin (Melatonin) 3 mg PO HS [facility] Last Admin: 04/18/17 22:23 Dose: 3 mg Multivitamins/Minerals (Theragran-M) 1 each PO DAILY [facility] Last Admin: 04/18/17 12:18 Dose: 1 each Ondansetron HCl (Zofran Odt -) 8 mg SL TID PRN PRN Reason: NAUSEA Phytonadione (Aqua Mephyton Injection -) 5 mg SQ DAILY [facility] Stop: 04/21/17 09:59 Last Admin: 04/18/17 12:15 Dose: 5 mg Ranitidine HCl (Zantac -) 150 mg PO DAILY [facility] Last Admin: 04/18/17 12:18 Dose: 150 mg - Objective Vital Signs: Vital Signs Temperature 99.0 F 04/19/17 05:00 Pulse Rate 73 04/19/17 05:00 Respiratory Rate 18 04/19/17 05:00 Blood Pressure 119/63 04/19/17 05:00 O2 Sat by Pulse Oximetry (%) 97 04/18/17 21:00 Constitutional: Yes: No Distress, Calm Cardiovascular: Yes: Regular Rate and Rhythm, Murmur (3/6 ( pt not aware)), S1, S2 Respiratory: Yes: Regular, Other (coarse BS) Gastrointestinal: Yes: Normal Bowel Sounds, Soft. No: Tenderness Edema: No Neurological: Yes: Alert, Oriented Labs: CBC, BMP 04/19/17 06:15 INR, PTT INR 1.34 (0.82-1.09) H 04/19/17 06:15 Problem List - Problems (1) Anemia Code(s): D64.9 - ANEMIA, UNSPECIFIED Qualifiers: Anemia type: unspecified type Qualified Code(s): D64.9 - Anemia, unspecified (2) Bleeding from colostomy stoma Code(s): K94.01 - COLOSTOMY HEMORRHAGE (3) Liver mass Code(s): R16.0 - HEPATOMEGALY, NOT ELSEWHERE CLASSIFIED (4) Epistaxis Code(s): R04.0 - EPISTAXIS Assessment/Plan s/p PRBC Tx monitor CBC GI, Sx, Onco consult appreciated. Pt for EGD, ileoscopy tomorrow ECHO AM labs
--- NOTE | 2017-04-19 10:57 | PN ---
GI Progress Note Subjective: No acute events No abdominal pain epistaxis resolved no bleeding from stoma - Objective Vital Signs: Vital Signs Temperature 99.0 F 04/19/17 05:00 Pulse Rate 73 04/19/17 05:00 Respiratory Rate 18 04/19/17 05:00 Blood Pressure 119/63 04/19/17 05:00 O2 Sat by Pulse Oximetry (%) 97 04/18/17 21:00 Constitutional: Calm Eyes: No: Cataracts Cardiovascular: Yes: Regular Rate and Rhythm, Murmur Respiratory: Yes: CTA Bilaterally Gastrointestinal Inspection: Yes: Scars (ileostomy with green stool). No: Distention ...Auscultate: Yes: Normoactive Bowel Sounds ...Palpate: No: Tenderness ...Percussion: No: Tympanitic Edema: No Neurological: Yes: Alert, Oriented Labs: CBC, BMP 04/19/17 06:15 INR, PTT INR 1.34 (0.82-1.09) H 04/19/17 06:15 Problem List - Problems (1) Hemorrhage from ileostomy Assessment/Plan: No further bleeding For EGD / possible ileoscopy tomorrow Code(s): K94.11 - ENTEROSTOMY HEMORRHAGE (2) Colon cancer metastasized to liver Assessment/Plan: Eval by oncology Code(s): C18.9 - MALIGNANT NEOPLASM OF COLON, UNSPECIFIED C78.7 - SECONDARY MALIG NEOPLASM OF LIVER AND INTRAHEPATIC BILE DUCT (3) Thrombocytopenia Assessment/Plan: likely chemo related / related to liver dysfunction from metastatic disease being followed by heme Received blood products / vitamin K Code(s): D69.6 - THROMBOCYTOPENIA, UNSPECIFIED
[2017-04-19 11:50] LABS: BASOPHIL 0.8 % (0-2.0); MCH 32.4 pg (25.7-33.7); MCHC 34.1 g/dl (32.0-35.9); MEAN PLT VOLUME 10.7 fl (7.5-11.1); NEUTROPHILS 59.7 % (42.8-82.8); PLATELET COUNT 94 K/MM3 (134-434); RDW 23.8 % (11.9-15.9); WHITE BLOOD COUNT 3.4 K/mm3 (4.0-10.0)
[2017-04-19 13:29] LABS: ANISOCYTOSIS 3+; HYPOCHROMIA 2+; MICROCYTOSIS 1+
--- NOTE | 2017-04-19 16:17 | PN ---
Progress Note (short form) - Note Progress Note: PAtient seen and examined Denies any complaints Last Vital Signs Temp Pulse Resp BP Pulse Ox 97.8 F 68 20 117/57 97 04/19/17 14:09 04/19/17 14:09 04/19/17 14:04/19/17 14:04/18/17 21:00 Cor: RSR, No murmurs, No gallops Lungs: Clear to P&A Abd: Soft, Normal bowel sounds, No organomegaly Ext:No significant edema Skin: No rashes, Integument intact Abnormal Lab Results 04/16/17 04/19/17 04/19/17 12:44 06:15 06:15 WBC 3.4 L RBC 2.57 L Hgb 8.3 L Hct 24.4 L RDW 23.8 H Plt Count 94 L D Monocytes % 15.3 H INR 1.34 H PTT (Actin FS) 37.5 H Creatinine Calcium Total Bilirubin AST Alkaline Phosphatase Total Protein Albumin Crossmatch See Detail 04/19/17 06:15 WBC RBC Hgb Hct RDW Plt Count Monocytes % INR PTT (Actin FS) Creatinine 0.6 L Calcium 8.2 L Total Bilirubin 2.5 H AST 59 H Alkaline Phosphatase 204 H Total Protein 5.8 L Albumin 2.9 L Crossmatch A/P 76 y/o patient with colon cancer, on XELOX, possible liver mets s/p platelets/FFP for epistaxis--resolved for EGD in am ? plan on liver bx---discuss with dr. reyna
[2017-04-19] MEDS: MELATONIN 1 MG TABLET PO SCH (21:32)
[2017-04-20 07:02] LABS: BASOPHIL 0.8 % (0-2.0); EOSINOPHIL 1.6 % (0-4.5); MCH 32.7 pg (25.7-33.7); MEAN PLT VOLUME 9.7 fl (7.5-11.1); NEUTROPHILS 57.5 % (42.8-82.8); PLATELET COUNT 108 K/MM3 (134-434); RDW 23.7 % (11.9-15.9); WHITE BLOOD COUNT 3.6 K/mm3 (4.0-10.0)
[2017-04-20 07:13] LABS: ALK PHOS 216 U/L (45-117); ANION GAP 8 (8-16); CALCIUM 8.2 mg/dL (8.5-10.1); CO2 27 mmol/L (21-32); CREATININE 0.7 mg/dL (0.7-1.3); GLUCOSE,RANDOM 95 mg/dL (74-106); SGOT/AST 64 U/L (15-37); SGPT/ALT 31 U/L (12-78); TOT PROT 6.2 g/dl (6.4-8.2)
[2017-04-20 07:19] LABS: INR 1.3 (0.82-1.09); PROTHROMBIN TIME (PATIENT) 14.4 SEC (9.98-11.88)
[2017-04-20 08:17] LABS: ACTIVATED PTT 36.3 SECONDS (26.9-34.4)
[2017-04-20] MEDS ORDERED: LIDOCAINE HCL/PF 2% SDV 5ML VIAL ONE (08:43)
[2017-04-20] MEDS ORDERED: PROPOFOL 20 ML ONE (08:43)
--- NOTE | 2017-04-20 09:13 | PN ---
Progress Note (short form) - Note Progress Note: Full EGD report in chart and to be scanned into [facility] No overt bleeding sites noted through ileostomy Upper endoscopy incomplete due to copious retained food For repeat EGD tomorrow after reglan administration for complete evaluation Problem List - Problems (1) Hemorrhage from ileostomy Code(s): K94.11 - ENTEROSTOMY HEMORRHAGE (2) Colon cancer metastasized to liver Code(s): C18.9 - MALIGNANT NEOPLASM OF COLON, UNSPECIFIED C78.7 - SECONDARY MALIG NEOPLASM OF LIVER AND INTRAHEPATIC BILE DUCT (3) Thrombocytopenia Code(s): D69.6 - THROMBOCYTOPENIA, UNSPECIFIED
--- NOTE | 2017-04-20 09:39 | PN ---
Progress Note (short form) - Note Progress Note: PAtient seen and examined Denies any complaints Last Vital Signs Temp Pulse Resp BP Pulse Ox 98.4 F 77 18 105/45 98 04/20/17 06:00 04/20/17 06:00 04/20/17 06:00 04/20/17 06:00 04/19/17 22:00 Cor: RSR, No murmurs, No gallops Lungs: Clear to P&A Abd: Soft, Normal bowel sounds, No organomegaly Ext:No significant edema Skin: No rashes, Integument intact Abnormal Lab Results 04/16/17 04/19/17 04/20/17 12:44 06:15 05:45 WBC 3.4 L RBC 2.57 L Hgb 8.3 L Hct 24.4 L RDW 23.8 H Plt Count 94 L D Monocytes % 15.3 H INR 1.30 H PTT (Actin FS) Calcium Total Bilirubin AST Alkaline Phosphatase Total Protein Albumin Crossmatch See Detail 04/20/17 04/20/17 04/20/17 05:45 05:45 05:45 WBC 3.6 L RBC 2.86 L Hgb 9.3 L D Hct 27.5 L RDW 23.7 H Plt Count 108 L Monocytes % 16.4 H INR PTT (Actin FS) 36.3 H Calcium 8.2 L Total Bilirubin 2.0 H AST 64 H Alkaline Phosphatase 216 H Total Protein 6.2 L Albumin 3.0 L Crossmatch A/P 76 y/o patient with colon cancer, on XELOX, possible liver mets s/p platelets/FFP for epistaxis--resolved for EGD in am ? plan on liver bx---discuss with dr. reyna
--- NOTE | 2017-04-20 10:09 | PN ---
Progress Note, Physician History of Present Illness: Pt w/o SOB, CP, dizziness, abd pain. Pt w/o nose bleed, no stoma bleed. Pt is s/p EGD, ileoscopy - Current Medication List Current Medications: Active Medications Acetaminophen (Tylenol -) 650 mg PO Q6H PRN Ascorbic Acid (Vitamin C -) 500 mg PO DAILY [facility] Last Admin: 04/19/17 10:38 Dose: 500 mg Potassium Chloride 10 meq/ (Sodium Chloride) 1,005 mls @ 50 mls/hr IVPB Q20H [facility] Last Admin: 04/19/17 15:27 Dose: 50 mls/hr Melatonin (Melatonin) 3 mg PO HS [facility] Last Admin: 04/19/17 21:32 Dose: 3 mg Metoclopramide HCl (Reglan Injection -) 5 mg IVPB Q8H-IV [facility] Stop: 04/21/17 02:01 Multivitamins/Minerals (Theragran-M) 1 each PO DAILY [facility] Last Admin: 04/19/17 10:36 Dose: 1 each Phytonadione (Aqua Mephyton Injection -) 5 mg SQ DAILY [facility] Stop: 04/21/17 09:59 Last Admin: 04/19/17 10:39 Dose: 5 mg Ranitidine HCl (Zantac -) 150 mg PO DAILY [facility] Last Admin: 04/19/17 10:37 Dose: 150 mg - Objective Vital Signs: Vital Signs Temperature 98.2 F 04/20/17 09:18 Pulse Rate 68 04/20/17 09:57 Respiratory Rate 18 04/20/17 09:57 Blood Pressure 120/67 04/20/17 09:57 O2 Sat by Pulse Oximetry (%) 100 04/20/17 09:57 Constitutional: Yes: No Distress, Calm Cardiovascular: Yes: Regular Rate and Rhythm, S1, S2 Respiratory: Yes: Regular, CTA Bilaterally. No: Rales Gastrointestinal: Yes: Normal Bowel Sounds, Soft Edema: No Neurological: Yes: Alert, Oriented Labs: CBC, BMP 04/20/17 05:45 04/20/17 05:45 INR, PTT INR 1.30 (0.82-1.09) H 04/20/17 05:45 Fibrinogen 341.0 mg/dL (238-498) 04/20/17 05:45 Problem List - Problems (1) Anemia Code(s): D64.9 - ANEMIA, UNSPECIFIED Qualifiers: Anemia type: unspecified type Qualified Code(s): D64.9 - Anemia, unspecified (2) Bleeding from colostomy stoma Code(s): K94.01 - COLOSTOMY HEMORRHAGE (3) Liver mass Code(s): R16.0 - HEPATOMEGALY, NOT ELSEWHERE CLASSIFIED (4) Epistaxis Code(s): R04.0 - EPISTAXIS Assessment/Plan s/p PRBC Tx monitor CBC GI, Sx, Onco consult appreciated. Pt for EGD, ileoscopy report pending, to f/u with GI ECHO pending AM labs
[2017-04-20] MEDS: METOCLOPRAMIDE HCL INJECTION 10 MG/2 ML VIAL IVPB SCH ×2 (10:17→17:35)
[2017-04-20] MEDS: MULTIVITAMINS THER W-MINERALS COMBO TABLET (FP) PO SCH (10:17)
[2017-04-20] MEDS: PHYTONADIONE 10 MG/1 ML AMP SQ SCH (10:17)
[2017-04-20] MEDS: ASCORBIC ACID 500 MG TABLET (FP) PO SCH (10:17)
[2017-04-20] MEDS: RANITIDINE HCL 150 MG TABLET (FP) PO SCH (10:17)
[2017-04-20] MEDS: POTASSIUM CHLORIDE 10 MEQ in SODIUM CHLORIDE 0.45% 1,000 ML IVPB SCH (10:18)
[2017-04-20] MEDS ORDERED: PT OWN MED DRAWER 7, Y5N ONE (12:39)
[2017-04-20] MEDS: LOPERAMIDE HCL 2 MG CAPSULE PO PRN ×2 (15:22→21:19)
[2017-04-20] MEDS: MELATONIN 1 MG TABLET PO SCH (21:21)
[2017-04-21] MEDS: METOCLOPRAMIDE HCL INJECTION 10 MG/2 ML VIAL IVPB SCH (01:40)
[2017-04-21] MEDS: POTASSIUM CHLORIDE 10 MEQ in SODIUM CHLORIDE 0.45% 1,000 ML IVPB SCH (04:01)
[2017-04-21 06:56] LABS: EOSINOPHIL 2.6 % (0-4.5); MCH 32.8 pg (25.7-33.7); MCHC 34.2 g/dl (32.0-35.9); MEAN PLT VOLUME 8.2 fl (7.5-11.1); NEUTROPHILS 47.7 % (42.8-82.8); PLATELET COUNT 93 K/MM3 (134-434); RDW 25.2 % (11.9-15.9); WHITE BLOOD COUNT 3.2 K/mm3 (4.0-10.0)
[2017-04-21 07:24] LABS: ALBUMIN 2.9 g/dl (3.4-5.0); ANION GAP 7 (8-16); BILIRUBIN,TOTAL 1.6 mg/dL (0.2-1.0); CALCIUM 8.2 mg/dL (8.5-10.1); CO2 25 mmol/L (21-32); CREATININE 0.7 mg/dL (0.7-1.3); GLUCOSE,RANDOM 80 mg/dL (74-106); INR 1.31 (0.82-1.09); PROTHROMBIN TIME (PATIENT) 14.5 SEC (9.98-11.88); SGOT/AST 57 U/L (15-37); SGPT/ALT 29 U/L (12-78); TOT PROT 5.9 g/dl (6.4-8.2)
[2017-04-21 07:25] LABS: ALK PHOS 202 U/L (45-117)
[2017-04-21] MEDS: MULTIVITAMINS THER W-MINERALS COMBO TABLET (FP) PO SCH ×2 (09:47→18:00)
[2017-04-21] MEDS: RANITIDINE HCL 150 MG TABLET (FP) PO SCH (09:47)
[2017-04-21] MEDS: ASCORBIC ACID 500 MG TABLET (FP) PO SCH ×2 (09:47→18:00)
--- NOTE | 2017-04-21 10:00 | PN ---
Progress Note (short form) - Note Progress Note: GI Procedure Note: Please see scanned EGD report. Erosive bulb duodenitis and shallow ulcerations appear to have been the source of bleeding and anemia. Continue pantoprazole. Dr Gusman will be covering this weekend. Please call him as needed. Please follow official report.
--- NOTE | 2017-04-21 10:50 | PN ---
Progress Note, Physician History of Present Illness: Pt w/o SOB, CP, dizziness, abd pain. Pt w/o nose bleed, no stoma bleed. Pt is s/p EGD, ileoscopy - Current Medication List Current Medications: Active Medications Acetaminophen (Tylenol -) 650 mg PO Q6H PRN Ascorbic Acid (Vitamin C -) 500 mg PO DAILY [facility] Last Admin: 04/21/17 09:47 Dose: Not Given Potassium Chloride 10 meq/ (Sodium Chloride) 1,005 mls @ 50 mls/hr IVPB Q20H [facility] Last Admin: 04/21/17 04:01 Dose: 50 mls/hr Pantoprazole Sodium 80 mg/ (Sodium Chloride) 100 mls @ 10 mls/hr IVPB Q10H [facility] PRN Reason: 8 MG/HR Loperamide HCl (Imodium -) 2 mg PO TID PRN PRN Reason: DIARRHEA Last Admin: 04/20/17 21:19 Dose: 2 mg Melatonin (Melatonin) 3 mg PO HS [facility] Last Admin: 04/20/17 21:21 Dose: 3 mg Multivitamins/Minerals (Theragran-M) 1 each PO DAILY [facility] Last Admin: 04/21/17 09:47 Dose: Not Given - Objective Vital Signs: Vital Signs Temperature 97 F L 04/21/17 10:03 Pulse Rate 69 04/21/17 10:36 Respiratory Rate 18 04/21/17 10:36 Blood Pressure 117/63 04/21/17 10:36 O2 Sat by Pulse Oximetry (%) 100 04/21/17 10:36 Constitutional: Yes: No Distress, Calm Cardiovascular: Yes: Regular Rate and Rhythm, Murmur, S1, S2 Respiratory: Yes: Regular, CTA Bilaterally. No: Rales Gastrointestinal: Yes: Normal Bowel Sounds, Soft. No: Tenderness Edema: No Labs: CBC, BMP 04/21/17 05:40 04/21/17 05:40 INR, PTT INR 1.31 (0.82-1.09) H 04/21/17 05:40 Fibrinogen 341.0 mg/dL (238-498) 04/20/17 05:45 Problem List - Problems (1) Anemia Code(s): D64.9 - ANEMIA, UNSPECIFIED Qualifiers: Anemia type: unspecified type Qualified Code(s): D64.9 - Anemia, unspecified (2) Leukopenia Code(s): D72.819 - DECREASED WHITE BLOOD CELL COUNT, UNSPECIFIED (3) Bleeding from colostomy stoma Code(s): K94.01 - COLOSTOMY HEMORRHAGE (4) Liver mass Code(s): R16.0 - HEPATOMEGALY, NOT ELSEWHERE CLASSIFIED (5) Epistaxis Assessment/Plan: stopped Code(s): R04.0 - EPISTAXIS (6) Colon cancer Code(s): C18.9 - MALIGNANT NEOPLASM OF COLON, UNSPECIFIED (7) Ileostomy present Code(s): Z93.2 - ILEOSTOMY STATUS (8) Severe tricuspid valve regurgitation Assessment/Plan: by ECHO Code(s): I07.1 - RHEUMATIC TRICUSPID INSUFFICIENCY (9) Pulmonary hypertension Code(s): I27.2 - OTHER SECONDARY PULMONARY HYPERTENSION Assessment/Plan s/p PRBC Tx monitor CBC GI, Sx, Onco consult appreciated. Pt for EGD, ileoscopy, to f/u with GI ECHO report was reviewed AM labs
[2017-04-21] MEDS: PANTOPRAZOLE SODIUM 80 MG in SODIUM CHLORIDE 100 ML IVPB SCH ×2 (12:35→22:46)
--- NOTE | 2017-04-21 15:20 | PN ---
Progress Note (short form) - Note Progress Note: Patient seen and examined. Patient underwent EGD this am; He feels well. Daughter at bedside. O/E: Cor: RSR, No murmurs, No gallops Lungs: Clear to P&A Abd: Soft, Normal bowel sounds, No organomegaly. liquid stool in the colostomy bag Ext:No significant edema Skin: No rashes, Integument intact CBC, BMP 04/21/17 05:40 04/21/17 05:40 INR, PTT INR 1.31 (0.82-1.09) H 04/21/17 05:40 Fibrinogen 341.0 mg/dL (238-498) 04/20/17 05:45 Last Vital Signs Temp Pulse Resp BP Pulse Ox 97.6 F 73 20 123/65 100 04/21/17 14:01 04/21/17 14:01 04/21/17 14:01 04/21/17 14:01 04/21/17 11:26 Active Medications Generic Name Dose Route Start Last Admin Trade Name Freq PRN Reason Stop Dose Admin Acetaminophen 650 mg 04/16/17 22:30 Tylenol - PO Q6H PRN Ascorbic Acid 500 mg 04/17/17 10:00 04/21/17 09:47 Vitamin C - PO Not Given DAILY ZACHERY Loperamide HCl 2 mg 04/20/17 13:17 04/20/17 21:19 Imodium - PO 2 mg TID PRN Administration DIARRHEA Melatonin 3 mg 04/16/17 23:15 04/20/17 21:21 Melatonin PO 3 mg HS ZACHERY Administration Multivitamins/Minerals 1 each 04/17/17 12:45 04/21/17 09:47 Theragran-M PO Not Given DAILY ZACHERY Assessment/Plan: is a 76 year old male who is admitted for upper GI bleed. He also has a history of Colon cancer, presently on adjuvant chemo with Xelox, last dose of xeloda being 04/16, with most recently CT finding of Liver mets most likely, biopsy pending. GI bleed: -s/p EGD this am. -report reviewed -presently on protonix drip. Colon cancer, likely with new liver mets: -liver biopsy pending -Spoke to , procedure will take place on Monday -need CBC/PT/PTT/active type and screen on Monday morning labs, prior to procedure. -I did discuss with about the biopsy. -discussed with the pt and daughter Coagulopathy secondary to liver mets -FFP/platelets as needed. -presently INR Is 1.3 Thrombocytopenia secondary to underlying liver mets and chemotherapy -supportive care /transfusions needed leukopenia- ? likely secondary to chemotherapy.
[2017-04-21] MEDS: LOPERAMIDE HCL 2 MG CAPSULE PO PRN ×2 (15:25→22:45)
--- NOTE | 2017-04-21 22:06 | PN ---
Progress Note (short form) - Note Progress Note: Had EGD today showing multiple ulcers No recurrence of GIB No evidence of obsrtuction at parastomal hernia No surgical intervention at this time. Will f/u as outpatient
[2017-04-21] MEDS ORDERED: PT OWN MED DRAWER 7, Y5N ONE (22:38)
[2017-04-21] MEDS: MELATONIN 1 MG TABLET PO SCH (22:46)
[2017-04-22] MEDS ORDERED: PT OWN MED DRAWER 7, Y5N ONE ×2 (00:03→21:23)
[2017-04-22] MEDS: PANTOPRAZOLE SODIUM 80 MG in SODIUM CHLORIDE 100 ML IVPB SCH ×3 (06:08→15:34)
[2017-04-22 07:19] LABS: BASOPHIL 0.7 % (0-2.0); EOSINOPHIL 2.3 % (0-4.5); MCH 32.6 pg (25.7-33.7); MCHC 34.1 g/dl (32.0-35.9); MEAN CELL VOLUME 95.6 fl (80-96); MEAN PLT VOLUME 9.7 fl (7.5-11.1); NEUTROPHILS 56.5 % (42.8-82.8); PLATELET COUNT 99 K/MM3 (134-434); RDW 24.2 % (11.9-15.9); WHITE BLOOD COUNT 3.9 K/mm3 (4.0-10.0)
[2017-04-22 07:51] LABS: FERRITIN 71.867 ng/ml (16.4-293.9)
[2017-04-22 08:03] LABS: INR 1.28 (0.82-1.09); PROTHROMBIN TIME (PATIENT) 14.2 SEC (9.98-11.88)
[2017-04-22] MEDS: ASCORBIC ACID 500 MG TABLET (FP) PO SCH (10:12)
[2017-04-22] MEDS: MULTIVITAMINS THER W-MINERALS COMBO TABLET (FP) PO SCH (10:12)
[2017-04-22] MEDS: LOPERAMIDE HCL 2 MG CAPSULE PO PRN ×2 (10:12→21:32)
--- NOTE | 2017-04-22 11:42 | PN ---
Progress Note (short form) - Note Progress Note: Progress Note: Seen in follow up. No new complaints. Feeling well. Normal appearing stool in ostomy at this time. Meds reviewed. Current Medications Generic Name Dose Route Start Last Admin Trade Name Callie PRN Reason Stop Dose Admin Acetaminophen 650 mg 04/16/17 22:30 Tylenol - PO Q6H PRN Ascorbic Acid 500 mg 04/17/17 10:00 04/22/17 10:12 Vitamin C - PO 500 mg DAILY ZACHERY Administration Pantoprazole Sodium 80 mg/ 100 mls @ 10 mls/hr 04/21/17 10:15 04/22/17 07:52 Sodium Chloride IVPB 10 mls/hr Q10H ZACHERY Administration 8 MG/HR Loperamide HCl 2 mg 04/20/17 13:17 04/22/17 10:12 Imodium - PO 2 mg TID PRN Administration DIARRHEA Melatonin 3 mg 04/16/17 23:15 04/21/17 22:46 Melatonin PO 3 mg HS ZACHERY Administration Multivitamins/Minerals 1 each 04/17/17 12:45 04/22/17 10:12 Theragran-M PO 1 each DAILY ZACHERY Administration On exam: Last Vital Signs Temp Pulse Resp BP Pulse Ox 98.2 F 76 18 113/60 100 04/22/17 10:00 04/22/17 10:00 04/22/17 10:00 04/22/17 10:00 04/21/17 22:00 General: In no acute distress. Extremities: No pallor or icterus, no pedal edema. Chest:good air entry bilaterally, . Abdomen: Soft, no organomegaly, no masses. Ostomy bag, brown liquid stool. Neuro: Alert, oriented, non-focal. CVS: Normal sinus rhythm, S1, S2, no gallop or murmur. CBC, BMP 04/22/17 06:00 04/21/17 05:40 Assessment. Metastatic colon cancer, on palliative chemotherapy as outpatient, presents with GI bleed, attributable to GI ulcers (seen on endoscopy 04/21) - pathology pending. On presentation was mildly coagulopathic, but recent coags satisfactory - ? Vit K response. Thrombocytopenia also initially - improving - likely attributable to chemotherapy. Observe. Mild anemia, normocytic. Recheck iron panel when out of acute setting - may benefit from iron supplementation. Liver biopsy previously scheduled and now pending. Indication unclear - would clarify with patient's outside oncologist. Need also to clarify whether there is a question here of progressive disease on current chemo regimen.
--- NOTE | 2017-04-22 15:26 | PN ---
Progress Note, Physician History of Present Illness: Pt w/o SOB, CP, dizziness, abd pain. Pt w/o nose bleed, no stoma bleed. Pt is s/p EGD, ileoscopy. Pt and dg (at bedside) are telling me that pt is scheduled for liver bx on Monday. - Current Medication List Current Medications: Active Medications Acetaminophen (Tylenol -) 650 mg PO Q6H PRN Ascorbic Acid (Vitamin C -) 500 mg PO DAILY [facility] Last Admin: 04/22/17 10:12 Dose: 500 mg Pantoprazole Sodium 80 mg/ (Sodium Chloride) 100 mls @ 10 mls/hr IVPB Q10H ZACHERY PRN Reason: 8 MG/HR Last Admin: 04/22/17 07:52 Dose: 10 mls/hr Loperamide HCl (Imodium -) 2 mg PO TID PRN PRN Reason: DIARRHEA Last Admin: 04/22/17 10:12 Dose: 2 mg Melatonin (Melatonin) 3 mg PO HS [facility] Last Admin: 04/21/17 22:46 Dose: 3 mg Multivitamins/Minerals (Theragran-M) 1 each PO DAILY [facility] Last Admin: 04/22/17 10:12 Dose: 1 each - Objective Vital Signs: Vital Signs Temperature 97.6 F 04/22/17 14:48 Pulse Rate 69 04/22/17 14:48 Respiratory Rate 18 04/22/17 14:48 Blood Pressure 110/59 04/22/17 14:48 O2 Sat by Pulse Oximetry (%) 97 04/22/17 09:00 Constitutional: Yes: No Distress, Calm Cardiovascular: Yes: Regular Rate and Rhythm, S1, S2 Respiratory: Yes: Regular, CTA Bilaterally. No: Rales Gastrointestinal: Yes: Normal Bowel Sounds, Soft. No: Tenderness Edema: No Neurological: Yes: Alert, Oriented Labs: CBC, BMP 04/22/17 06:00 04/21/17 05:40 INR, PTT INR 1.28 (0.82-1.09) H 04/22/17 06:00 Fibrinogen 341.0 mg/dL (238-498) 04/20/17 05:45 - ....Imaging Other: Report Reviewed (ECHO) Problem List - Problems (1) Anemia Code(s): D64.9 - ANEMIA, UNSPECIFIED Qualifiers: Anemia type: unspecified type Qualified Code(s): D64.9 - Anemia, unspecified (2) Leukopenia Code(s): D72.819 - DECREASED WHITE BLOOD CELL COUNT, UNSPECIFIED (3) Bleeding from colostomy stoma Code(s): K94.01 - COLOSTOMY HEMORRHAGE (4) Liver mass Code(s): R16.0 - HEPATOMEGALY, NOT ELSEWHERE CLASSIFIED (5) Epistaxis Code(s): R04.0 - EPISTAXIS (6) Colon cancer Code(s): C18.9 - MALIGNANT NEOPLASM OF COLON, UNSPECIFIED (7) Ileostomy present Code(s): Z93.2 - ILEOSTOMY STATUS (8) Severe tricuspid valve regurgitation Assessment/Plan: by ECHO; when comparing with Sep 2016 it seems to be a significant change in TR Code(s): I07.1 - RHEUMATIC TRICUSPID INSUFFICIENCY (9) Pulmonary hypertension Code(s): I27.2 - OTHER SECONDARY PULMONARY HYPERTENSION Assessment/Plan s/p PRBC Tx monitor CBC GI, Sx, Onco consult appreciated. s/p EGD, ileoscopy, to f/u with GI ECHO report was reviewed, cardio consult To f/u with Heme/ Onco regarding liver BX; ohterwise consider DC planing.
[2017-04-22] MEDS: MELATONIN 1 MG TABLET PO SCH (21:33)
[2017-04-23] MEDS ORDERED: PT OWN MED DRAWER 7, Y5N ONE ×2 (01:40→21:22)
[2017-04-23] MEDS: PANTOPRAZOLE SODIUM 80 MG in SODIUM CHLORIDE 100 ML IVPB SCH ×3 (01:43→21:27)
[2017-04-23 06:36] LABS: SERUM IRON 38 ug/dL (38-169); TOTAL IRON BINDING CAPACITY 281 ug/dL (250-450); UIBC 243 ug/dL (111-343)
--- NOTE | 2017-04-23 10:11 | PN ---
Progress Note (short form) - Note Progress Note: Chief Complaint: Events noted, notes reviewed, denies any chest pain or dyspnea History of Present Illness: Seen and examined on telemetry. Full consult dictated - Current Medication List Current Medications Acetaminophen (Tylenol -) 650 mg PO Q6H PRN Ascorbic Acid (Vitamin C -) 500 mg PO DAILY [facility] Last Admin: 04/22/17 10:12 Dose: 500 mg Pantoprazole Sodium 80 mg/ (Sodium Chloride) 100 mls @ 10 mls/hr IVPB Q10H ZACHERY PRN Reason: 8 MG/HR Last Admin: 04/23/17 01:43 Dose: 10 mls/hr Loperamide HCl (Imodium -) 2 mg PO TID PRN PRN Reason: DIARRHEA Last Admin: 04/22/17 21:32 Dose: 2 mg Melatonin (Melatonin) 3 mg PO HS [facility] Last Admin: 04/22/17 21:33 Dose: 3 mg Multivitamins/Minerals (Theragran-M) 1 each PO DAILY [facility] Last Admin: 04/22/17 10:12 Dose: 1 each Review of Systems Cardiovascular: As noted above Respiratory: denies: Cough or Sputum Production Gastrointestinal: denies: Nausea, Vomiting, Diarrhea, Constipation or Abdominal Discomfort Musculoskeletal: No Symptoms Reported Endocrine: No Symptoms Reported - Objective Vital Signs: Last Vital Signs Temp Pulse Resp BP Pulse Ox 98.4 F 73 16 104/57 98 04/23/17 06:00 04/23/17 06:00 04/23/17 06:00 04/23/17 06:00 04/22/17 21:00 Constitutional: No Distress, Calm Neck: Supple Negative JVD No Bruit Cardiovascular: S1 S2 Regular Rate and Rhythm Grade 2/6 NORM and Grade 2/6 Systolic Murmur Respiratory: Clear to A&P Bilaterally Gastrointestinal: Soft Benign Normal Bowel Sounds Ext: No Edema Labs: CBC, BMP 04/22/17 06:00 04/21/17 05:40 INR, PTT INR 1.28 (0.82-1.09) H 04/22/17 06:00 Fibrinogen 341.0 mg/dL (238-498) 04/20/17 05:45 Assessment/Plan ASSESSMENT: 1. Aortic valve disease, aortic valve stenosis moderate in severity, asymptomatic 2. Diastolic LV dysfunction with class 0-I NYHA classification LV failure, euvolemic 3. TR with moderate degree of pulmonary HTN related to the above noted pathologies 4. History of HTN currently on no medical therapy 5. Colon carcinoma post resection with ileostomy, stomal bleed 6. Liver mass, possible metastatic disease 6. Ojeda-cytopenia PLAN: 1. No therapy initiation recommended at this point since he currently asymptomatic, but consideration for therapy initiation with 2. Diuretics, probably Aldactone +/- Lasix 3. B-Blockers 4. And ACEI or ARBS if clinically indicated 5. Outpatient F/U recommended for the above noted valvular pathologies, discussed in detail with the patient Yamila Ku MD
[2017-04-23] MEDS: ASCORBIC ACID 500 MG TABLET (FP) PO SCH (10:27)
[2017-04-23] MEDS: LOPERAMIDE HCL 2 MG CAPSULE PO PRN ×2 (10:27→21:25)
[2017-04-23] MEDS: MULTIVITAMINS THER W-MINERALS COMBO TABLET (FP) PO SCH (10:27)
--- NOTE | 2017-04-23 12:01 | PN ---
Progress Note (short form) - Note Progress Note: Progress Note: Seen in follow up. No new complaints. Feeling well. Normal appearing stool in ostomy at this time. Meds reviewed. Current Medications Generic Name Dose Route Start Last Admin Trade Name Callie PRN Reason Stop Dose Admin Acetaminophen 650 mg 04/16/17 22:30 Tylenol - PO Q6H PRN Ascorbic Acid 500 mg 04/17/17 10:00 04/23/17 10:27 Vitamin C - PO 500 mg DAILY ZACHERY Administration Pantoprazole Sodium 80 mg/ 100 mls @ 10 mls/hr 04/21/17 10:15 04/23/17 01:43 Sodium Chloride IVPB 10 mls/hr Q10H ZACHERY Administration 8 MG/HR Loperamide HCl 2 mg 04/20/17 13:17 04/23/17 10:27 Imodium - PO 2 mg TID PRN Administration DIARRHEA Melatonin 3 mg 04/16/17 23:15 04/22/17 21:33 Melatonin PO 3 mg HS ZACHERY Administration Multivitamins/Minerals 1 each 04/17/17 12:45 04/23/17 10:27 Theragran-M PO 1 each DAILY ZACHERY Administration On exam: Last Vital Signs Temp Pulse Resp BP Pulse Ox 98.1 F 70 16 100/50 98 04/23/17 10:00 04/23/17 10:00 04/23/17 10:00 04/23/17 10:00 04/22/17 21:00 General: In no acute distress. Extremities: No pallor or icterus, no pedal edema. Chest:good air entry bilaterally, . Abdomen: Soft, no organomegaly, no masses. Ostomy bag, brown liquid stool. Neuro: Alert, oriented, non-focal. CVS: Normal sinus rhythm, S1, S2, no gallop or murmur. CBC, BMP 04/22/17 06:00 04/21/17 05:40 Assessment. Metastatic colon cancer, on palliative chemotherapy as outpatient, presents with GI bleed, attributable to GI ulcers (seen on endoscopy 04/21) - pathology pending. No evidence of ongoing bleeding presently. On presentation was mildly coagulopathic, but recent coags satisfactory - ? Vit K response. Thrombocytopenia also initially - improving - likely attributable to chemotherapy. Observe. Mild anemia, normocytic. Recheck iron panel when out of acute setting - may benefit from iron supplementation. Liver biopsy previously scheduled and now pending. Indication unclear - would clarify with patient's outside oncologist. Need also to clarify whether there is a question here of progressive disease on current chemo regimen.
--- NOTE | 2017-04-23 15:06 | PN ---
Progress Note, Physician History of Present Illness: Pt w/o SOB, CP, dizziness, abd pain. Pt w/o nose bleed, no stoma bleed. Pt is s/p EGD, ileoscopy. Pt waalked today, now in the chair, feeling comfortable - Current Medication List Current Medications: Active Medications Acetaminophen (Tylenol -) 650 mg PO Q6H PRN Ascorbic Acid (Vitamin C -) 500 mg PO DAILY [facility] Last Admin: 04/23/17 10:27 Dose: 500 mg Pantoprazole Sodium 80 mg/ (Sodium Chloride) 100 mls @ 10 mls/hr IVPB Q10H ZACHERY PRN Reason: 8 MG/HR Last Admin: 04/23/17 12:19 Dose: 10 mls/hr Loperamide HCl (Imodium -) 2 mg PO TID PRN PRN Reason: DIARRHEA Last Admin: 04/23/17 10:27 Dose: 2 mg Melatonin (Melatonin) 3 mg PO HS [facility] Last Admin: 04/22/17 21:33 Dose: 3 mg Multivitamins/Minerals (Theragran-M) 1 each PO DAILY [facility] Last Admin: 04/23/17 10:27 Dose: 1 each - Objective Vital Signs: Vital Signs Temperature 97.5 F L 04/23/17 14:39 Pulse Rate 64 04/23/17 14:39 Respiratory Rate 20 04/23/17 14:39 Blood Pressure 105/49 04/23/17 14:39 O2 Sat by Pulse Oximetry (%) 98 04/23/17 09:00 Constitutional: Yes: Calm Cardiovascular: Yes: Regular Rate and Rhythm, S1, S2 Respiratory: Yes: Regular, CTA Bilaterally. No: Rales Gastrointestinal: Yes: Normal Bowel Sounds, Soft. No: Palpable Mass, Tenderness Edema: No Neurological: Yes: Alert, Oriented Labs: CBC, BMP 04/22/17 06:00 04/21/17 05:40 INR, PTT INR 1.28 (0.82-1.09) H 04/22/17 06:00 Fibrinogen 341.0 mg/dL (238-498) 04/20/17 05:45 Problem List - Problems (1) Anemia Code(s): D64.9 - ANEMIA, UNSPECIFIED Qualifiers: Anemia type: unspecified type Qualified Code(s): D64.9 - Anemia, unspecified (2) Leukopenia Code(s): D72.819 - DECREASED WHITE BLOOD CELL COUNT, UNSPECIFIED (3) Bleeding from colostomy stoma Code(s): K94.01 - COLOSTOMY HEMORRHAGE (4) Liver mass Code(s): R16.0 - HEPATOMEGALY, NOT ELSEWHERE CLASSIFIED (5) Epistaxis Code(s): R04.0 - EPISTAXIS (6) Colon cancer Code(s): C18.9 - MALIGNANT NEOPLASM OF COLON, UNSPECIFIED (7) Ileostomy present Code(s): Z93.2 - ILEOSTOMY STATUS (8) Severe tricuspid valve regurgitation Code(s): I07.1 - RHEUMATIC TRICUSPID INSUFFICIENCY (9) Pulmonary hypertension Code(s): I27.2 - OTHER SECONDARY PULMONARY HYPERTENSION Assessment/Plan s/p PRBC Tx monitor CBC GI, Sx, Onco consult appreciated. s/p EGD, ileoscopy, to f/u with GI ECHO report was reviewed, cardio consult appreciated. To f/u with Heme/ Onco. Pt foer liver bx tomorrow, labs were ordered.
[2017-04-23] MEDS: MELATONIN 1 MG TABLET PO SCH (21:26)
[2017-04-24] MEDS ORDERED: SODIUM CHLORIDE 1,000 ML with POTASSIUM CHLORIDE 10 MEQ IV SCH (00:01)
[2017-04-24 08:20] LABS: MCH 32.4 pg (25.7-33.7); MCHC 34.1 g/dl (32.0-35.9); MEAN CELL VOLUME 95.2 fl (80-96); MEAN PLT VOLUME 9.5 fl (7.5-11.1); PLATELET COUNT 83 K/MM3 (134-434); RDW 23.1 % (11.9-15.9); WHITE BLOOD COUNT 3.6 K/mm3 (4.0-10.0)
[2017-04-24] MEDS: PANTOPRAZOLE SODIUM 80 MG in SODIUM CHLORIDE 100 ML IVPB SCH ×3 (08:30→22:02)
[2017-04-24 08:39] LABS: INR 1.32 (0.82-1.09); PROTHROMBIN TIME (PATIENT) 14.6 SEC (9.98-11.88)
[2017-04-24 08:41] LABS: ACTIVATED PTT 41.6 SECONDS (26.9-34.4)
[2017-04-24 08:47] LABS: ANION GAP 7 (8-16); CALCIUM 7.9 mg/dL (8.5-10.1); CO2 26 mmol/L (21-32); CREATININE 0.7 mg/dL (0.7-1.3); GLUCOSE,RANDOM 91 mg/dL (74-106)
[2017-04-24] MEDS: ASCORBIC ACID 500 MG TABLET (FP) PO SCH (10:49)
[2017-04-24] MEDS: MULTIVITAMINS THER W-MINERALS COMBO TABLET (FP) PO SCH (10:49)
--- NOTE | 2017-04-24 12:14 | PN ---
Progress Note, Physician History of Present Illness: Underwent liver biopsy. Denies chest pain, dyspnea, near or true syncope or palpitations. - Current Medication List Current Medications: Active Medications Acetaminophen (Tylenol -) 650 mg PO Q6H PRN Ascorbic Acid (Vitamin C -) 500 mg PO DAILY [facility] Last Admin: 04/24/17 10:49 Dose: Not Given Pantoprazole Sodium 80 mg/ (Sodium Chloride) 100 mls @ 10 mls/hr IVPB Q10H ZACHERY PRN Reason: 8 MG/HR Last Admin: 04/24/17 08:30 Dose: 10 mls/hr Potassium Chloride 10 meq/ (Sodium Chloride) 1,005 mls @ 50 mls/hr IV ASDIR ZACHERY Stop: 04/24/17 15:27 Last Admin: 04/24/17 01:02 Dose: 50 mls/hr Loperamide HCl (Imodium -) 2 mg PO TID PRN PRN Reason: DIARRHEA Last Admin: 04/23/17 21:25 Dose: 2 mg Melatonin (Melatonin) 3 mg PO HS [facility] Last Admin: 04/23/17 21:26 Dose: 3 mg Multivitamins/Minerals (Theragran-M) 1 each PO DAILY [facility] Last Admin: 04/24/17 10:49 Dose: Not Given - Objective Vital Signs: Vital Signs Temperature 98.2 F 04/24/17 10:00 Pulse Rate 66 04/24/17 10:00 Respiratory Rate 19 04/24/17 10:00 Blood Pressure 102/62 04/24/17 10:00 O2 Sat by Pulse Oximetry (%) 98 04/23/17 21:00 Constitutional: Yes: No Distress, Calm, Thin Neck: Yes: Supple Cardiovascular: Yes: Regular Rate and Rhythm, Murmur (2/6 SM) Respiratory: Yes: Regular, CTA Bilaterally Edema: No Labs: CBC, BMP 04/24/17 06:40 04/24/17 06:40 INR, PTT INR 1.32 (0.82-1.09) H 04/24/17 06:40 Fibrinogen 341.0 mg/dL (238-498) 04/20/17 05:45 Problem List - Problems (1) Colon cancer metastasized to liver Code(s): C18.9 - MALIGNANT NEOPLASM OF COLON, UNSPECIFIED C78.7 - SECONDARY MALIG NEOPLASM OF LIVER AND INTRAHEPATIC BILE DUCT (2) Hemorrhage from ileostomy Code(s): K94.11 - ENTEROSTOMY HEMORRHAGE (3) Pulmonary hypertension Code(s): I27.2 - OTHER SECONDARY PULMONARY HYPERTENSION (4) Diastolic dysfunction Code(s): I51.9 - HEART DISEASE, UNSPECIFIED (5) Moderate aortic valve stenosis Code(s): I35.0 - NONRHEUMATIC AORTIC (VALVE) STENOSIS (6) Pancytopenia due to chemotherapy Code(s): D61.810 - ANTINEOPLASTIC CHEMOTHERAPY INDUCED PANCYTOPENIA (7) Severe tricuspid valve regurgitation Code(s): I07.1 - RHEUMATIC TRICUSPID INSUFFICIENCY Assessment/Plan 04/19/2017 Echo: Normal LV size and fxn, severe TR, RVSP 40-50 mmHg, mod 1. Aortic valve disease, aortic valve stenosis moderate in severity, asymptomatic 2. Diastolic LV dysfunction with class 0-I NYHA classification LV failure, euvolemic 3. TR with moderate degree of pulmonary HTN related to the above noted pathologies 4. History of HTN currently on no medical therapy 5. Metastatic colon carcinoma post resection with ileostomy, stomal bleed on palliative chemotherapy as outpatient 6. Liver mass, possible metastatic disease post liver biopsy 6. Ojeda-cytopenia post PRBC Tx PLAN: 1. No therapy initiation recommended at this point since he currently asymptomatic, but consideration for therapy initiation with 2. Diuretics, probably Aldactone +/- Lasix 3. B-Blockers 4. And ACEI or ARBS if clinically indicated 5. Outpatient F/U recommended for the above noted valvular pathologies, discussed in detail with the patient 6. F/u pathology, eventual take-down per surgery
--- NOTE | 2017-04-24 12:26 | PN ---
Progress Note, Physician History of Present Illness: Pt w/o SOB, CP, dizziness, abd pain. Pt w/o nose bleed, no stoma bleed. Pt is s/p EGD, ileoscopy. Pt is scheduled today for liver Bx - Current Medication List Current Medications: Active Medications Acetaminophen (Tylenol -) 650 mg PO Q6H PRN Ascorbic Acid (Vitamin C -) 500 mg PO DAILY [facility] Last Admin: 04/24/17 10:49 Dose: Not Given Pantoprazole Sodium 80 mg/ (Sodium Chloride) 100 mls @ 10 mls/hr IVPB Q10H ZACHERY PRN Reason: 8 MG/HR Last Admin: 04/24/17 08:30 Dose: 10 mls/hr Potassium Chloride 10 meq/ (Sodium Chloride) 1,005 mls @ 50 mls/hr IV ASDIR [facility] Stop: 04/24/17 15:27 Last Admin: 04/24/17 01:02 Dose: 50 mls/hr Loperamide HCl (Imodium -) 2 mg PO TID PRN PRN Reason: DIARRHEA Last Admin: 04/23/17 21:25 Dose: 2 mg Melatonin (Melatonin) 3 mg PO HS [facility] Last Admin: 04/23/17 21:26 Dose: 3 mg Multivitamins/Minerals (Theragran-M) 1 each PO DAILY [facility] Last Admin: 04/24/17 10:49 Dose: Not Given - Objective Vital Signs: Vital Signs Temperature 98.2 F 04/24/17 10:00 Pulse Rate 76 04/24/17 12:19 Respiratory Rate 16 04/24/17 12:19 Blood Pressure 110/48 04/24/17 12:19 O2 Sat by Pulse Oximetry (%) 100 04/24/17 12:19 Constitutional: Yes: No Distress, Calm Cardiovascular: Yes: Regular Rate and Rhythm, Murmur, S1, S2 Respiratory: Yes: Regular, CTA Bilaterally Gastrointestinal: Yes: Normal Bowel Sounds, Soft. No: Tenderness Edema: No Neurological: Yes: Alert, Oriented Labs: CBC, BMP 04/24/17 06:40 04/24/17 06:40 INR, PTT INR 1.32 (0.82-1.09) H 04/24/17 06:40 Fibrinogen 341.0 mg/dL (238-498) 04/20/17 05:45 Problem List - Problems (1) Anemia Code(s): D64.9 - ANEMIA, UNSPECIFIED Qualifiers: Anemia type: unspecified type Qualified Code(s): D64.9 - Anemia, unspecified (2) Leukopenia Code(s): D72.819 - DECREASED WHITE BLOOD CELL COUNT, UNSPECIFIED (3) Bleeding from colostomy stoma Code(s): K94.01 - COLOSTOMY HEMORRHAGE (4) Liver mass Code(s): R16.0 - HEPATOMEGALY, NOT ELSEWHERE CLASSIFIED (5) Epistaxis Code(s): R04.0 - EPISTAXIS (6) Colon cancer Code(s): C18.9 - MALIGNANT NEOPLASM OF COLON, UNSPECIFIED (7) Ileostomy present Code(s): Z93.2 - ILEOSTOMY STATUS (8) Severe tricuspid valve regurgitation Code(s): I07.1 - RHEUMATIC TRICUSPID INSUFFICIENCY (9) Pulmonary hypertension Code(s): I27.2 - OTHER SECONDARY PULMONARY HYPERTENSION Assessment/Plan s/p PRBC Tx monitor CBC GI, Sx, Onco consult appreciated. s/p EGD, ileoscopy, to f/u with GI ECHO report was reviewed, cardio consult appreciated. To f/u with Heme/ Onco. Pt for liver bx today.
--- NOTE | 2017-04-24 12:39 | PATH ---
Surgical Pathology Report Patient Name: FRANCINE POOLE [facility]. Rec. #: [id number] /Age/Gender: 1940 (Age: 76) / M Account: [id number] Location: [address] [place] [address]/[facility] Taken: 04/21/2017 Received: 04/21/2017 Reported: 04/24/2017 Physicians: Johnathon Caraballo M.D. Specimen(s) Received A: BX SECOND PORTION DUODENUM AND DUODENAL BULB B: BX GASTRIC ANTRUM Clinical History GI bleed, anemia Duodenitis with ulceration, hiatal hernia Final Diagnosis A. DUODENUM, SECOND PORTION AND BULB, BIOPSY: DUODENAL MUCOSA WITH ACTIVE AND CHRONIC INFLAMMATION, DUSTIN'S GLANDS HYPERPLASIA AND FOCAL GASTRIC METAPLASIA CONSISTENT WITH ACTIVE PEPTIC DUODENITIS. NO HISTOLOGIC EVIDENCE OF GLUTEN SENSITIVE ENTEROPATHY (CELIAC DISEASE). B. STOMACH, ANTRUM, BIOPSY: GASTRIC ANTRAL MUCOSA WITH MODERATE CHRONIC GASTRITIS AND REACTIVE GASTROPATHY WITH FOVEOLAR HYPERPLASIA. IMMUNOSTAIN FOR H. PYLORI IS NEGATIVE FOR ORGANISMS. Electronically Signed Gerson Casas M.D. Gross Description A. Received in formalin, labeled "biopsy second portion of duodenum and duodenal bulb" are 3 oneil, irregular portions of soft tissue ranging from 0.3-0.5 cm in greatest dimension. The specimens are submitted in toto in one cassette. B. Received in formalin, labeled "biopsy gastric antrum" are 4 oneil, irregular portions of soft tissue ranging from 0.2-0.3 cm in greatest dimension. The specimens are submitted in toto in one cassette. 04/21/201704/21/2017
--- NOTE | 2017-04-24 13:27 | PN ---
Progress Note (short form) - Note Progress Note: Patient seen and examined. Patient underwent biopsy today. Feels OK after the biopsy, Feels sleepy and hungry O/E: Cor:systolic murmur Lungs: Clear to P&A Abd: Soft, Normal bowel sounds, No organomegaly. formed stool in the colostomy bag. Site of liver biopsy with no pain or echymosses Ext:No significant edema Skin: No rashes, Integument intact Last Vital Signs Temp Pulse Resp BP Pulse Ox 98.2 F 76 16 110/48 100 04/24/17 10:00 04/24/17 12:19 04/24/17 12:19 04/24/17 12:19 04/24/17 12:19 Abnormal Lab Results 04/24/17 04/24/17 04/24/17 06:40 06:40 06:40 WBC 3.6 L RBC 2.58 L Hgb 8.4 L Hct 24.6 L RDW 23.1 H Plt Count 83 L INR 1.32 H PTT (Actin FS) 41.6 H Anion Gap 7 L Calcium 7.9 L Current Medications Generic Name Dose Route Start Last Admin Trade Name Freq PRN Reason Stop Dose Admin Acetaminophen 650 mg 04/16/17 22:30 Tylenol - PO Q6H PRN Ascorbic Acid 500 mg 04/17/17 10:00 04/24/17 10:49 Vitamin C - PO Not Given DAILY ZACHERY Pantoprazole Sodium 80 mg/ 100 mls @ 10 mls/hr 04/21/17 10:15 04/24/17 08:30 Sodium Chloride IVPB 10 mls/hr Q10H ZACHERY Administration 8 MG/HR Potassium Chloride 10 meq/ 1,005 mls @ 50 mls/hr 04/24/17 00:01 04/24/17 01:02 Sodium Chloride IV 04/24/17 15:27 50 mls/hr ASDIR ZACHERY Administration Loperamide HCl 2 mg 04/20/17 13:17 04/23/17 21:25 Imodium - PO 2 mg TID PRN Administration DIARRHEA Melatonin 3 mg 04/16/17 23:15 04/23/17 21:26 Melatonin PO 3 mg HS ZACHERY Administration Multivitamins/Minerals 1 each 04/17/17 12:45 04/24/17 10:49 Theragran-M PO Not Given DAILY ZACHERY Assessment/Plan: is a 76 year old male who is admitted for upper GI bleed. He also has a history of Colon cancer, presently on adjuvant chemo with Xelox, last dose of xeloda being 04/16, with most recently CT finding of Liver mets most likely, biopsy done today GI bleed: -s/p EGD -report reviewed -presently on protonix -no further bleeding noted. Colon cancer, likely with new liver mets: -liver biopsy done today -will need followup with as an out patient Coagulopathy secondary to liver mets -FFP/platelets as needed. -presently INR Is 1.3 Thrombocytopenia secondary to underlying liver mets and chemotherapy -supportive care /transfusions needed leukopenia- ? likely secondary to chemotherapy. Valvular abn: cardiology follow-up appreciated will follow
[2017-04-24] MEDS: LOPERAMIDE HCL 2 MG CAPSULE PO PRN (18:05)
[2017-04-24 21:19] LABS: BASOPHIL 0.3 % (0-2.0); EOSINOPHIL 0.6 % (0-4.5); MEAN CELL VOLUME 96.8 fl (80-96); MEAN PLT VOLUME 9.6 fl (7.5-11.1); PLATELET COUNT 102 K/MM3 (134-434); RDW 22.8 % (11.9-15.9); WHITE BLOOD COUNT 5.8 K/mm3 (4.0-10.0)
[2017-04-24 21:32] LABS: INR 1.35 (0.82-1.09); PROTHROMBIN TIME (PATIENT) 14.9 SEC (9.98-11.88)
[2017-04-24] MEDS ORDERED: PT OWN MED DRAWER 7, Y5N ONE (21:47)
[2017-04-24] MEDS: MELATONIN 1 MG TABLET PO SCH (22:02)
[2017-04-24 22:12] LABS: ANISOCYTOSIS 2+; HYPOCHROMIA 1+; PLATELET ESTIMATE DECREASED (NORMAL); POLYCHROMASIA FEW
[2017-04-25 01:33] LABS: MCH 31.5 pg (25.7-33.7); MCHC 32.8 g/dl (32.0-35.9); MEAN CELL VOLUME 96.2 fl (80-96); MEAN PLT VOLUME 9.7 fl (7.5-11.1); PLATELET COUNT 93 K/MM3 (134-434); RDW 22.9 % (11.9-15.9); WHITE BLOOD COUNT 5.7 K/mm3 (4.0-10.0)
[2017-04-25] MEDS: PANTOPRAZOLE SODIUM 80 MG in SODIUM CHLORIDE 100 ML IVPB SCH ×3 (03:40→14:47)
[2017-04-25] MEDS ORDERED: PT OWN MED DRAWER 7, Y5N ONE (08:51)
[2017-04-25] MEDS: MULTIVITAMINS THER W-MINERALS COMBO TABLET (FP) PO SCH (09:02)
[2017-04-25] MEDS: ASCORBIC ACID 500 MG TABLET (FP) PO SCH (09:02)
--- NOTE | 2017-04-25 10:57 | CONS ---
DATE OF CONSULTATION: 04/23/2017 REQUESTING PHYSICIAN: Shant Davis MD CHIEF COMPLAINT: Evaluation of a heart murmur, aortic stenosis , tricuspid valve regurgitation, pulmonary hypertension. HISTORY OF PRESENT ILLNESS: This 76-year-old male, with known history of hypertensive cardiovascular disease, currently on no therapy, in addition, history of metastatic colon carcinoma, post colectomy, with ileostomy, who presented to [facility] with ileostomy bleed and was noted to have on physical examination, a heart murmur, further evaluation of which included echocardiography, which was performed April 19, 2017, which revealed normal left ventricular systolic function, moderate degree of aortic valve stenosis, severe tricuspid valve regurgitation with calculated RVSP of 40-50 mmHg. Cardiovascular evaluation was requested for the above-noted pathology. Upon questioning the patient, he does not report any prior history of coronary artery disease or congestive heart failure. Patient denies any chest discomfort. Patient denies any dyspnea, orthopnea, or paroxysmal nocturnal dyspnea. Patient reports intermittent bilateral lower extremity edema that worsens in the lateral part of the day. Patient denies any palpitations, dizziness, lightheadedness, or syncope. Patient denies any fatigue or tiredness. Endoscopy was performed, ulcers were noted. PAST MEDICAL HISTORY: Metastatic colon carcinoma post colectomy, ileostomy, currently receiving chemotherapy, hypertensive cardiovascular disease, currently on no medical therapy. SOCIAL HISTORY: Remote history of tobacco abuse. FAMILY HISTORY: No history of coronary artery disease. ALLERGIES: None reported. MEDICAL THERAPY: 1. Acetaminophen 650-mg every 6 hours as needed. 2. Vitamin C 500 mg once a day. 3. Protonix intravenously 80 mg once daily. 4. Imodium 2 mg 3 times a day as needed. 5. Melatonin 3 mg once a day. 6. Multivitamin 1 tablet once a day. REVIEW OF SYSTEMS: Head and neck: Denies headache, photophobia, blurring of vision. Respiratory: No cough or sputum production. Cardiovascular: As noted above. Gastrointestinal: As noted above. Genitourinary: No symptoms reported. PHYSICAL EXAMINATION: Vital signs: Blood pressure is 104/57 mmHg, pulse rate is 73 beats per minute. Head and neck: Pupils are equally reactive to light and accommodation. Extraocular muscles are intact. Anicteric sclerae. Negative JVD. No bruit appreciated. Chest: Clear to auscultation and percussion. Cardiovascular: S1, S2 regular. Grade 2-3/6 systolic ejection murmur. In addition, grade 2/6 systolic apical murmur. Abdomen: Ileostomy site was noted. Soft, benign. Extremities: Negative edema. Intact distal pulses. No calf tenderness. STUDIES: Electrocardiogram reveals sinus rhythm with premature nonspecific T- wave abnormality. CBC revealed a white cell count of 3.9, hemoglobin 8.6, platelet count 99. Basic metabolic profile revealed a sodium 142, potassium 4.0, BUN 11, creatinine 0.7, glucose 80. INR 1.28. ASSESSMENT: 1. Aortic valve disease, aortic valve stenosis, moderate in severity, asymptomatic. 2. Probable diastolic left ventricular dysfunction with class 0 to 1 [place] Heart [employer] Classification left ventricular failure, euvolemic. 3. Tricuspid valve regurgitation with moderate degree of pulmonary hypertension related to the above-noted pathologies. 4. History of hypertension, currently on no medical therapy. 5. Colon carcinoma post resection with ileostomy, stomal bleed. Liver mass, possible metastatic disease. 6. Pancytopenia. RECOMMENDATION: 1. No therapy initiation recommended at this point since he is currently asymptomatic, but considerate for therapy initiation with No. 2. 2. Diuretics probably Aldactone plus/minus Lasix. 3. Beta-blockers. 4. DIRK inhibitors or angiotensin receptor blockers if clinically indicated and if patient becomes symptomatic. 5. Outpatient followup is recommended for the above-noted valvular pathology discussed in detail with the patient. Thank you for the kind referral RODGER PARKS M.D. [id number] MTDD
--- NOTE | 2017-04-25 15:03 | PN ---
Progress Note (short form) - Note Progress Note: Patient seen and examined. events noted s/p FFP and PRBC Patient denies any complains. No pain at the site of biopsy. No further epistaxis/hemetemesis. Feels well. Normal brown stool in the ostomy noted by him. Otherwise ROS is negative. O/E: Cor:systolic murmur Lungs: Clear to P&A Abd: Soft, Normal bowel sounds, No organomegaly. formed stool in the colostomy bag. Site of liver biopsy with no pain or echymosses Ext:No significant edema Skin: No rashes, Integument intact CBC, BMP 04/25/17 01:00 04/24/17 06:40 INR, PTT INR 1.35 (0.82-1.09) H 04/24/17 20:45 Fibrinogen 289.0 mg/dL (238-498) 04/24/17 20:45 Abnormal Lab Results 04/24/17 04/24/17 04/24/17 06:40 20:45 20:45 RBC 2.41 L Hgb 7.7 L Hct 23.3 L MCV 96.8 H RDW 22.8 H Plt Count 102 L D Monocytes % 14.1 H INR PTT (Actin FS) 37.9 H Crossmatch See Detail 04/24/17 04/25/17 20:45 01:00 RBC 2.35 L Hgb 7.4 L Hct 22.6 L MCV 96.2 H RDW 22.9 H Plt Count 93 L Monocytes % INR 1.35 H PTT (Actin FS) Crossmatch Last Vital Signs Temp Pulse Resp BP Pulse Ox 99.0 F 81 18 111/48 96 04/25/17 04:10 04/25/17 04:10 04/25/17 04:10 04/25/17 04:10 04/24/17 21:00 Current Medications Generic Name Dose Route Start Last Admin Trade Name Freq PRN Reason Stop Dose Admin Acetaminophen 650 mg 04/16/17 22:30 Tylenol - PO Q6H PRN Ascorbic Acid 500 mg 04/17/17 10:00 04/25/17 09:02 Vitamin C - PO 500 mg DAILY ZACHERY Administration Pantoprazole Sodium 80 mg/ 100 mls @ 10 mls/hr 04/21/17 10:15 04/25/17 14:47 Sodium Chloride IVPB Not Given Q10H ZACHERY 8 MG/HR Loperamide HCl 2 mg 04/20/17 13:17 04/24/17 18:05 Imodium - PO 2 mg TID PRN Administration DIARRHEA Melatonin 3 mg 04/16/17 23:15 04/24/17 22:02 Melatonin PO 3 mg HS ZACHERY Administration Multivitamins/Minerals 1 each 04/17/17 12:45 04/25/17 09:02 Theragran-M PO 1 each DAILY ZACHERY Administration Assessment/Plan: is a 76 year old male who is admitted for upper GI bleed. He also has a history of Colon cancer, presently on adjuvant chemo with Xelox, last dose of xeloda being 04/16, with most recently CT finding of Liver mets most likely, biopsy done on 04/24. Drop in H/H: -S/p 2U of PRBC -Awaiting repeat CBC this pm -Ordered Liver US to r/o bleed at the site of biopsy site ( though pt hemodynamically stable, no complains) -will follow-up on the results of the US GI bleed on admission: -s/p EGD -report reviewed -presently continues to be on protonix -trend down in h/h, will need to be monitored. Colon cancer, likely with new liver mets: -liver biopsy done -will need followup with as an out patient Coagulopathy secondary to liver mets -FFP/platelets as needed. -was given FFPs overnight post procedure. Thrombocytopenia secondary to underlying liver mets and chemotherapy -supportive care /transfusions needed -ordered CBC/Chem/PT/PTT for am labs leukopenia- ? likely secondary to chemotherapy. Valvular abn: cardiology follow-up appreciated will follow
--- NOTE | 2017-04-25 16:19 | PN ---
Progress Note, Physician History of Present Illness: Pt w/o SOB, CP, dizziness, abd pain. Pt w/o nose bleed, no stoma bleed. Pt is s/p EGD, ileoscopy. Pt had liver Bx yesterday Pt received 1 unit PRBC, 1 unit FFP; one more unit FFP pending. Pt was seen in AM, case was d/w his nurse. - Current Medication List Current Medications: Active Medications Acetaminophen (Tylenol -) 650 mg PO Q6H PRN Ascorbic Acid (Vitamin C -) 500 mg PO DAILY [facility] Last Admin: 04/25/17 09:02 Dose: 500 mg Pantoprazole Sodium 80 mg/ (Sodium Chloride) 100 mls @ 10 mls/hr IVPB Q10H ZACHERY PRN Reason: 8 MG/HR Last Admin: 04/25/17 14:47 Dose: Not Given Loperamide HCl (Imodium -) 2 mg PO TID PRN PRN Reason: DIARRHEA Last Admin: 04/24/17 18:05 Dose: 2 mg Melatonin (Melatonin) 3 mg PO HS [facility] Last Admin: 04/24/17 22:02 Dose: 3 mg Multivitamins/Minerals (Theragran-M) 1 each PO DAILY [facility] Last Admin: 04/25/17 09:02 Dose: 1 each - Objective Vital Signs: Vital Signs Temperature 98.3 F 04/25/17 15:12 Pulse Rate 82 04/25/17 15:12 Respiratory Rate 18 04/25/17 04:10 Blood Pressure 128/53 04/25/17 15:12 O2 Sat by Pulse Oximetry (%) 96 04/24/17 21:00 Constitutional: Yes: No Distress, Calm Cardiovascular: Yes: Regular Rate and Rhythm, S1, S2 Respiratory: Yes: Regular, CTA Bilaterally. No: Rales Gastrointestinal: Yes: Normal Bowel Sounds, Soft. No: Tenderness Edema: No Neurological: Yes: Alert, Oriented Labs: CBC, BMP 04/25/17 01:00 04/24/17 06:40 INR, PTT INR 1.35 (0.82-1.09) H 04/24/17 20:45 Fibrinogen 289.0 mg/dL (238-498) 04/24/17 20:45 Problem List - Problems (1) Anemia Code(s): D64.9 - ANEMIA, UNSPECIFIED Qualifiers: Anemia type: unspecified type Qualified Code(s): D64.9 - Anemia, unspecified (2) Leukopenia Code(s): D72.819 - DECREASED WHITE BLOOD CELL COUNT, UNSPECIFIED (3) Bleeding from colostomy stoma Code(s): K94.01 - COLOSTOMY HEMORRHAGE (4) Liver mass Code(s): R16.0 - HEPATOMEGALY, NOT ELSEWHERE CLASSIFIED (5) Epistaxis Code(s): R04.0 - EPISTAXIS (6) Colon cancer Code(s): C18.9 - MALIGNANT NEOPLASM OF COLON, UNSPECIFIED (7) Ileostomy present Code(s): Z93.2 - ILEOSTOMY STATUS (8) Severe tricuspid valve regurgitation Code(s): I07.1 - RHEUMATIC TRICUSPID INSUFFICIENCY (9) Pulmonary hypertension Code(s): I27.2 - OTHER SECONDARY PULMONARY HYPERTENSION Assessment/Plan s/p PRBC Tx, again last night S/p FFP TX monitor CBC GI, Sx, Onco consult appreciated. s/p EGD, ileoscopy, to f/u with GI ECHO report was reviewed, cardio consult appreciated. To f/u with Heme/ Onco. Pt had liver bx yesterday, to f/u report. AM labs
[2017-04-25 18:20] LABS: BASOPHIL 0.6 % (0-2.0); EOSINOPHIL 0.6 % (0-4.5); MCH 31.6 pg (25.7-33.7); MCHC 33.9 g/dl (32.0-35.9); MEAN CELL VOLUME 93.4 fl (80-96); MEAN PLT VOLUME 10.1 fl (7.5-11.1); PLATELET COUNT 93 K/MM3 (134-434); RDW 21.2 % (11.9-15.9); WHITE BLOOD COUNT 6.4 K/mm3 (4.0-10.0)
--- NOTE | 2017-04-25 18:24 | PN ---
Progress Note, Physician Chief Complaint: Events noted Not in distress at this time History of Present Illness: Patient was seen and examined. Awake and alert. Chart was reviewed Denies chest pain, SOB or palpitation Post liver biopsy - result pending - Current Medication List Current Medications: Active Medications Acetaminophen (Tylenol -) 650 mg PO Q6H PRN Ascorbic Acid (Vitamin C -) 500 mg PO DAILY [facility] Last Admin: 04/25/17 09:02 Dose: 500 mg Pantoprazole Sodium 80 mg/ (Sodium Chloride) 100 mls @ 10 mls/hr IVPB Q10H ZACHERY PRN Reason: 8 MG/HR Last Admin: 04/25/17 14:47 Dose: Not Given Loperamide HCl (Imodium -) 2 mg PO TID PRN PRN Reason: DIARRHEA Last Admin: 04/24/17 18:05 Dose: 2 mg Melatonin (Melatonin) 3 mg PO HS [facility] Last Admin: 04/24/17 22:02 Dose: 3 mg Multivitamins/Minerals (Theragran-M) 1 each PO DAILY [facility] Last Admin: 04/25/17 09:02 Dose: 1 each - Objective Vital Signs: Vital Signs Temperature 98.3 F 04/25/17 15:12 Pulse Rate 82 04/25/17 15:12 Respiratory Rate 18 04/25/17 04:10 Blood Pressure 128/53 04/25/17 15:12 O2 Sat by Pulse Oximetry (%) 96 04/25/17 09:00 Neck: Yes: Supple Cardiovascular: Yes: Regular Rate and Rhythm, Murmur (2/6 NORM right intercostal with mid systolic peaking, 2/6 SM LSB), S1, S2 Respiratory: Yes: Diminished Gastrointestinal: Yes: Normal Bowel Sounds, Soft, Other Edema: No Additional Findings/Remarks: Review of Systems Cardiovascular: As noted above Respiratory: denies: Cough or Sputum Production Gastrointestinal: denies: Nausea, Vomiting, Diarrhea, Constipation or Abdominal Discomfort Musculoskeletal: No Symptoms Reported Endocrine: No Symptoms Reported Labs: INR, PTT INR 1.35 (0.82-1.09) H 04/24/17 20:45 Fibrinogen 289.0 mg/dL (238-498) 04/24/17 20:45 Laboratory Results - last 24 hr 04/22/17 04/24/17 04/24/17 06:00 06:40 20:45 WBC 5.8 D RBC 2.41 L Hgb 7.7 L Hct 23.3 L MCV 96.8 H MCH 32.0 MCHC 33.0 RDW 22.8 H Plt Count 102 L D MPV 9.6 Neutrophils % 73.0 D Lymphocytes % 12.0 D Monocytes % 14.1 H Eosinophils % 0.6 Basophils % 0.3 Hypersegmented Neuts Few Platelet Estimate Decreased Platelet Comment No clumping noted Polychromasia Few Hypochromic-Microcytic 1+ Anisocytosis 2+ INR PTT (Actin FS) Fibrinogen Tiss Transglutamin IgG 3 Tiss Transglutamin IgA < 2 Blood Type A NEGATIVE Antibody Screen Negative Crossmatch See Detail 04/24/17 04/24/17 04/24/17 20:45 20:45 20:45 WBC RBC Hgb Hct MCV MCH MCHC RDW Plt Count MPV Neutrophils % Lymphocytes % Monocytes % Eosinophils % Basophils % Hypersegmented Neuts Platelet Estimate Platelet Comment Polychromasia Hypochromic-Microcytic Anisocytosis INR 1.35 H PTT (Actin FS) 37.9 H Fibrinogen 289.0 Tiss Transglutamin IgG Tiss Transglutamin IgA Blood Type Antibody Screen Crossmatch 04/25/17 04/25/17 01:00 17:15 WBC 5.7 RBC 2.35 L Hgb 7.4 L Hct 22.6 L MCV 96.2 H MCH 31.5 MCHC 32.8 RDW 22.9 H Plt Count 93 L MPV 9.7 Neutrophils % Lymphocytes % Monocytes % Eosinophils % Basophils % Hypersegmented Neuts Platelet Estimate Platelet Comment Polychromasia Hypochromic-Microcytic Anisocytosis INR PTT (Actin FS) Fibrinogen Tiss Transglutamin IgG Tiss Transglutamin IgA Blood Type Antibody Screen Crossmatch See Detail Problem List - Problems (1) Bleeding from colostomy stoma Code(s): K94.01 - COLOSTOMY HEMORRHAGE (2) Colon cancer metastasized to liver Code(s): C18.9 - MALIGNANT NEOPLASM OF COLON, UNSPECIFIED C78.7 - SECONDARY MALIG NEOPLASM OF LIVER AND INTRAHEPATIC BILE DUCT (3) Diastolic dysfunction Code(s): I51.9 - HEART DISEASE, UNSPECIFIED (4) Ileostomy present Code(s): Z93.2 - ILEOSTOMY STATUS (5) Liver mass Code(s): R16.0 - HEPATOMEGALY, NOT ELSEWHERE CLASSIFIED (6) Moderate aortic valve stenosis Code(s): I35.0 - NONRHEUMATIC AORTIC (VALVE) STENOSIS (7) Pancytopenia due to chemotherapy Code(s): D61.810 - ANTINEOPLASTIC CHEMOTHERAPY INDUCED PANCYTOPENIA (8) Pulmonary hypertension Code(s): I27.2 - OTHER SECONDARY PULMONARY HYPERTENSION (9) Tricuspid valve regurgitation Code(s): I07.1 - RHEUMATIC TRICUSPID INSUFFICIENCY Qualifiers: Cardiac valve disease etiology: nonrheumatic Qualified Code(s): I36.1 - Nonrheumatic tricuspid (valve) insufficiency Assessment/Plan 1. Aortic valve disease, aortic valve stenosis moderate in severity - asymptomatic 2. Diastolic LV dysfunction with class 0-I NYHA classification LV failure, euvolemic 3. Moderate TR with moderate degree of pulmonary HTN 4. HTN 5. Metastatic colon carcinoma post resection with ileostomy and stomal bleed on palliative chemotherapy as outpatient 6. Liver mass, possible metastatic disease post liver biopsy 6. Ojeda-cytopenia post PRBC transfusion PLAN: 1. No specific cardiac therapy was initiated yet. His vitals have been stable 2. Consider beta-yarely if clinically indicated 3. ACEI or ARBS if clinically indicated 4. Outpatient F/U recommended for the above noted valvular pathologies. 5. F/u pathology for liver biopsy and further plans are to follow Say Carranza MD
[2017-04-25 18:58] LABS: ALBUMIN 2.9 g/dl (3.4-5.0); ALK PHOS 182 U/L (45-117); ANION GAP 8 (8-16); CALCIUM 8.1 mg/dL (8.5-10.1); CO2 27 mmol/L (21-32); CREATININE 0.8 mg/dL (0.7-1.3); GLUCOSE,RANDOM 89 mg/dL (74-106); SGOT/AST 47 U/L (15-37); SGPT/ALT 31 U/L (12-78); TOT PROT 6.1 g/dl (6.4-8.2)
[2017-04-25 19:03] LABS: INR 1.34 (0.82-1.09); PROTHROMBIN TIME (PATIENT) 14.8 SEC (9.98-11.88)
[2017-04-25 19:06] LABS: ACTIVATED PTT 35.4 SECONDS (26.9-34.4)
[2017-04-25] MEDS: MELATONIN 1 MG TABLET PO SCH (21:53)
[2017-04-26] MEDS: PANTOPRAZOLE SODIUM 80 MG in SODIUM CHLORIDE 100 ML IVPB SCH ×6 (02:52→23:27)
[2017-04-26 07:44] LABS: BASOPHIL 0.8 % (0-2.0); EOSINOPHIL 1.5 % (0-4.5); MCH 31.5 pg (25.7-33.7); MCHC 33.4 g/dl (32.0-35.9); MEAN CELL VOLUME 94.2 fl (80-96); MEAN PLT VOLUME 9.9 fl (7.5-11.1); NEUTROPHILS 54.8 % (42.8-82.8); PLATELET COUNT 72 K/MM3 (134-434); RDW 20.9 % (11.9-15.9); WHITE BLOOD COUNT 5.2 K/mm3 (4.0-10.0)
[2017-04-26 08:12] LABS: ALBUMIN 2.6 g/dl (3.4-5.0); ANION GAP 6 (8-16); CALCIUM 8.2 mg/dL (8.5-10.1); CO2 26 mmol/L (21-32); CREATININE 0.7 mg/dL (0.7-1.3); GLUCOSE,RANDOM 88 mg/dL (74-106); SGOT/AST 39 U/L (15-37); SGPT/ALT 25 U/L (12-78)
[2017-04-26 08:16] LABS: ALK PHOS 161 U/L (45-117); BILIRUBIN,TOTAL 1.6 mg/dL (0.2-1.0); TOT PROT 5.4 g/dl (6.4-8.2)
[2017-04-26 08:26] LABS: INR 1.36 (0.82-1.09)
[2017-04-26 08:29] LABS: ACTIVATED PTT 35.8 SECONDS (26.9-34.4)
[2017-04-26] MEDS: ASCORBIC ACID 500 MG TABLET (FP) PO SCH (09:39)
[2017-04-26] MEDS: MULTIVITAMINS THER W-MINERALS COMBO TABLET (FP) PO SCH (09:39)
--- NOTE | 2017-04-26 12:42 | PN ---
Progress Note, Physician History of Present Illness: Pt w/o SOB, CP, dizziness, abd pain. Pt w/o nose bleed, no stoma bleed. Pt is s/p EGD, ileoscopy. Pt had liver Bx yesterday Pt received 1 unit PRBC, 1 unit FFP; one more unit FFP pending. - Current Medication List Current Medications: Active Medications Acetaminophen (Tylenol -) 650 mg PO Q6H PRN Ascorbic Acid (Vitamin C -) 500 mg PO DAILY [facility] Last Admin: 04/26/17 09:39 Dose: 500 mg Pantoprazole Sodium 80 mg/ (Sodium Chloride) 100 mls @ 10 mls/hr IVPB Q10H ZACHERY PRN Reason: 8 MG/HR Last Admin: 04/26/17 10:35 Dose: Not Given Loperamide HCl (Imodium -) 2 mg PO TID PRN PRN Reason: DIARRHEA Last Admin: 04/24/17 18:05 Dose: 2 mg Melatonin (Melatonin) 3 mg PO HS [facility] Last Admin: 04/25/17 21:53 Dose: 3 mg Multivitamins/Minerals (Theragran-M) 1 each PO DAILY [facility] Last Admin: 04/26/17 09:39 Dose: 1 each - Objective Vital Signs: Vital Signs Temperature 98.3 F 04/26/17 06:00 Pulse Rate 81 04/26/17 06:00 Respiratory Rate 20 04/26/17 06:00 Blood Pressure 115/58 04/26/17 06:00 O2 Sat by Pulse Oximetry (%) 96 04/25/17 21:00 Constitutional: Yes: No Distress, Calm Cardiovascular: Yes: Regular Rate and Rhythm, S1, S2 Respiratory: Yes: Regular, CTA Bilaterally. No: Rales Gastrointestinal: Yes: Normal Bowel Sounds, Soft. No: Palpable Mass, Tenderness Edema: No Neurological: Yes: Alert, Oriented Labs: CBC, BMP 04/26/17 06:28 04/26/17 06:28 INR, PTT INR 1.36 (0.82-1.09) H 04/26/17 06:28 Fibrinogen 334.0 mg/dL (238-498) 04/25/17 17:15 Problem List - Problems (1) Anemia Code(s): D64.9 - ANEMIA, UNSPECIFIED Qualifiers: Anemia type: unspecified type Qualified Code(s): D64.9 - Anemia, unspecified (2) Leukopenia Code(s): D72.819 - DECREASED WHITE BLOOD CELL COUNT, UNSPECIFIED (3) Bleeding from colostomy stoma Code(s): K94.01 - COLOSTOMY HEMORRHAGE (4) Liver mass Code(s): R16.0 - HEPATOMEGALY, NOT ELSEWHERE CLASSIFIED (5) Epistaxis Code(s): R04.0 - EPISTAXIS (6) Colon cancer Code(s): C18.9 - MALIGNANT NEOPLASM OF COLON, UNSPECIFIED (7) Ileostomy present Code(s): Z93.2 - ILEOSTOMY STATUS (8) Severe tricuspid valve regurgitation Code(s): I07.1 - RHEUMATIC TRICUSPID INSUFFICIENCY (9) Pulmonary hypertension Code(s): I27.2 - OTHER SECONDARY PULMONARY HYPERTENSION (10) Thrombocytopenia Code(s): D69.6 - THROMBOCYTOPENIA, UNSPECIFIED Assessment/Plan s/p PRBC Tx, again last night S/p FFP TX monitor CBC GI, Sx, Onco consult appreciated. s/p EGD, ileoscopy, to f/u with GI ECHO report was reviewed, cardio consult appreciated. To f/u with Heme/ Onco. Pt had liver bx yesterday, to f/u report. Pt down at abd/ pelvis CT scan- to f/u report AM labs
--- NOTE | 2017-04-26 13:15 | PN ---
Progress Note (short form) - Note Progress Note: Patient seen and examined. events noted Patient continues to feel well.Patient denies any complains. No pain at the site of biopsy. No further epistaxis/hemetemesis.Normal brown stool in the ostomy noted by him. Otherwise ROS is negative. O/E: Cor:systolic murmur Lungs: Clear to P&A Abd: Soft, Normal bowel sounds, No organomegaly. formed stool in the colostomy bag. Site of liver biopsy with no pain or echymosses Ext:No significant edema Skin: No rashes, Integument intact Current Medications Generic Name Dose Route Start Last Admin Trade Name Freq PRN Reason Stop Dose Admin Acetaminophen 650 mg 04/16/17 22:30 Tylenol - PO Q6H PRN Ascorbic Acid 500 mg 04/17/17 10:00 04/26/17 09:39 Vitamin C - PO 500 mg DAILY ZACHERY Administration Pantoprazole Sodium 80 mg/ 100 mls @ 10 mls/hr 04/21/17 10:15 04/26/17 12:48 Sodium Chloride IVPB 10 mls/hr Q10H ZACHERY Administration 8 MG/HR Loperamide HCl 2 mg 04/20/17 13:17 04/24/17 18:05 Imodium - PO 2 mg TID PRN Administration DIARRHEA Melatonin 3 mg 04/16/17 23:15 04/25/17 21:53 Melatonin PO 3 mg HS ZACHERY Administration Multivitamins/Minerals 1 each 04/17/17 12:45 04/26/17 09:39 Theragran-M PO 1 each DAILY ZACHERY Administration Last Vital Signs Temp Pulse Resp BP Pulse Ox 98.3 F 81 20 115/58 96 04/26/17 06:00 04/26/17 06:00 04/26/17 06:00 04/26/17 06:00 04/25/17 21:00 Abnormal Lab Results 04/25/17 04/25/17 04/25/17 17:15 17:15 17:15 RBC 2.46 L Hgb 7.8 L Hct 22.9 L RDW 21.2 H Plt Count 93 L Monocytes % 17.7 H INR 1.34 H PTT (Actin FS) 35.4 H Anion Gap Calcium Total Bilirubin AST Alkaline Phosphatase Total Protein Albumin Crossmatch See Detail 04/25/17 04/26/17 04/26/17 17:15 06:28 06:28 RBC 2.24 L Hgb 7.0 L D Hct 21.1 L RDW 20.9 H Plt Count 72 L D Monocytes % 19.1 H INR 1.36 H PTT (Actin FS) 35.8 H Anion Gap Calcium 8.1 L Total Bilirubin 2.0 H D AST 47 H Alkaline Phosphatase 182 H Total Protein 6.1 L Albumin 2.9 L Crossmatch 04/26/17 06:28 RBC Hgb Hct RDW Plt Count Monocytes % INR PTT (Actin FS) Anion Gap 6 L Calcium 8.2 L Total Bilirubin 1.6 H AST 39 H Alkaline Phosphatase 161 H Total Protein 5.4 L Albumin 2.6 L Crossmatch Assessment/Plan: is a 76 year old male who is admitted for upper GI bleed. He also has a history of Colon cancer, presently was on adjuvant chemo with Xelox, last dose of xeloda being 04/16, with most recently CT finding of Liver mets most likely, biopsy done on 04/24. Drop in H/H: -ordered for one unit prbc, one SDU platelet -US liver negative for bleed -ordered CT a/p non contrast, result reviewed -will also rule out hemolysis, ordered LDH, retic, SHAWANDA, direct bili (??post transfusion of products, ?valvular hemolysis from aortic stenosis, but it is moderate in severity) -will need to monitor, repeat CBC in the pm GI bleed on admission: -s/p EGD -report reviewed -presently continues to be on protonix drip, ?PO -trend down in h/h, will need to be monitored. -discussed with GI Colon cancer, likely with new liver mets: -liver biopsy done -will need followup with as an out patient -updated the present situation with today Coagulopathy secondary to liver mets -FFP/platelets as needed. Thrombocytopenia secondary to underlying liver mets and chemotherapy -supportive care /transfusions needed -ordered CBC/Chem/PT/PTT for am labs Valvular abn: cardiology follow-up appreciated will follow
--- NOTE | 2017-04-26 16:51 | PN ---
Progress Note, Physician History of Present Illness: Receiving 1 U PRBC. Denies chest pain, dyspnea, near or true syncope or palpitations. - Current Medication List Current Medications: Active Medications Acetaminophen (Tylenol -) 650 mg PO Q6H PRN Ascorbic Acid (Vitamin C -) 500 mg PO DAILY [facility] Last Admin: 04/26/17 09:39 Dose: 500 mg Pantoprazole Sodium 80 mg/ (Sodium Chloride) 100 mls @ 10 mls/hr IVPB Q10H ZACHERY PRN Reason: 8 MG/HR Last Admin: 04/26/17 12:48 Dose: 10 mls/hr Loperamide HCl (Imodium -) 2 mg PO TID PRN PRN Reason: DIARRHEA Last Admin: 04/24/17 18:05 Dose: 2 mg Melatonin (Melatonin) 3 mg PO HS [facility] Last Admin: 04/25/17 21:53 Dose: 3 mg Multivitamins/Minerals (Theragran-M) 1 each PO DAILY [facility] Last Admin: 04/26/17 09:39 Dose: 1 each - Objective Vital Signs: Vital Signs Temperature 98 F 04/26/17 14:35 Pulse Rate 79 04/26/17 14:35 Respiratory Rate 18 04/26/17 14:35 Blood Pressure 114/49 04/26/17 14:35 O2 Sat by Pulse Oximetry (%) 96 04/26/17 10:00 Constitutional: Yes: No Distress, Calm, Thin Neck: Yes: Supple Cardiovascular: Yes: Regular Rate and Rhythm, Murmur (2/6 SM) Respiratory: Yes: Regular, Diminished Gastrointestinal: Yes: Normal Bowel Sounds, Soft Edema: No Labs: CBC, BMP 04/26/17 06:28 04/26/17 06:28 INR, PTT INR 1.36 (0.82-1.09) H 04/26/17 06:28 Fibrinogen 334.0 mg/dL (238-498) 04/25/17 17:15 - ....Imaging Cat Scan: Report Reviewed (Increased left lung base consolidation and small bilateral effusions) Problem List - Problems (1) Colon cancer metastasized to liver Code(s): C18.9 - MALIGNANT NEOPLASM OF COLON, UNSPECIFIED C78.7 - SECONDARY MALIG NEOPLASM OF LIVER AND INTRAHEPATIC BILE DUCT (2) Hemorrhage from ileostomy Code(s): K94.11 - ENTEROSTOMY HEMORRHAGE (3) Pulmonary hypertension Code(s): I27.2 - OTHER SECONDARY PULMONARY HYPERTENSION (4) Diastolic dysfunction Code(s): I51.9 - HEART DISEASE, UNSPECIFIED (5) Moderate aortic valve stenosis Code(s): I35.0 - NONRHEUMATIC AORTIC (VALVE) STENOSIS (6) Pancytopenia due to chemotherapy Code(s): D61.810 - ANTINEOPLASTIC CHEMOTHERAPY INDUCED PANCYTOPENIA (7) Severe tricuspid valve regurgitation Code(s): I07.1 - RHEUMATIC TRICUSPID INSUFFICIENCY Assessment/Plan 04/19/2017 Echo: Normal LV size and fxn, severe TR, RVSP 40-50 mmHg, mod 1. Aortic valve disease, aortic valve stenosis moderate in severity - asymptomatic 2. Diastolic LV dysfunction with class 0-I NYHA classification LV failure, euvolemic 3. Moderate TR with moderate degree of pulmonary HTN 4. HTN 5. Metastatic colon carcinoma post resection with ileostomy and stomal bleed on palliative chemotherapy as outpatient 6. Liver mass, possible metastatic disease post liver biopsy 7. Ojeda-cytopenia post PRBC transfusion PLAN: 1. Start Toprol XL 25 qd and losartan 25 qd as hemodynamics tolerate 4. Outpatient F/U recommended for the above noted valvular pathologies. 5. F/u pathology for liver biopsy and further plans are to follow
--- NOTE | 2017-04-26 17:44 | PATH ---
Surgical Pathology Report Patient Name: FRANCINE POOLE Med. Rec. #: [id number] /Age/Gender: 1940 (Age: 76) / M Account: [id number] Location: [address] [place] [address]/[facility] Taken: 04/24/2017 Received: 04/24/2017 Reported: 04/26/2017 Physicians: Steff Hayes M.D. Abraham Jacinto Specimen(s) Received LIVER BIOPSY Clinical History 76-year-old male with colon cancer and infiltrative liver process Final Diagnosis LIVER, CORE BIOPSY: BENIGN LIVER TISSUE WITH PATCHY STEATOSIS (~15%). NO MALIGNANCY IDENTIFIED IN THE EXAMINED MATERIAL. SEE COMMENT. Comment: The biopsy shows preserved liver architecture. Mild patchy steatosis is seen. No significant inflammation is present. Focal mild perivenular and perisinusoidal fibrosis is noted, highlighted by trichrome stain. Iron stain shows no siderosis. Immunohistochemical stains for Ae1/Ae3 and CK7 keratin performed and interpreted [facility] highlight bile ducts in the portal liver cells; CK20 is negative. No malignancy is identified in the examined material. Clinical, imaging correlations and followup are suggested. Electronically Signed Gerson Casas M.D. Gross Description Received in formalin labeled "liver biopsy" are 3 oneil, cylindrical portions of soft tissue ranging from 0.6-1.8 cm in length and averaging 0.1 cm in diameter. The specimens are submitted in toto in one cassette. 04/24/201704/24/2017
[2017-04-26 20:36] LABS: BASOPHIL 0.7 % (0-2.0); EOSINOPHIL 1.9 % (0-4.5); MCHC 33.2 g/dl (32.0-35.9); MEAN CELL VOLUME 93.4 fl (80-96); MEAN PLT VOLUME 9.3 fl (7.5-11.1); NEUTROPHILS 58.3 % (42.8-82.8); PLATELET COUNT 100 K/MM3 (134-434); RDW 20.5 % (11.9-15.9); WHITE BLOOD COUNT 5.5 K/mm3 (4.0-10.0)
[2017-04-26 21:15] LABS: INR 1.24 (0.82-1.09); PROTHROMBIN TIME (PATIENT) 13.7 SEC (9.98-11.88)
[2017-04-26 21:17] LABS: ACTIVATED PTT 36.2 SECONDS (26.9-34.4)
[2017-04-26] MEDS: MELATONIN 1 MG TABLET PO SCH (22:21)
[2017-04-27] MEDS: PANTOPRAZOLE SODIUM 80 MG in SODIUM CHLORIDE 100 ML IVPB SCH ×4 (06:15→20:35)
[2017-04-27 07:16] LABS: INR 1.24 (0.82-1.09); PROTHROMBIN TIME (PATIENT) 13.7 SEC (9.98-11.88)
[2017-04-27 07:17] LABS: MCH 31.7 pg (25.7-33.7); MCHC 34.3 g/dl (32.0-35.9); MEAN CELL VOLUME 92.5 fl (80-96); MEAN PLT VOLUME 9.5 fl (7.5-11.1); PLATELET COUNT 82 K/MM3 (134-434); RDW 21.5 % (11.9-15.9); WHITE BLOOD COUNT 4.7 K/mm3 (4.0-10.0)
[2017-04-27 07:27] LABS: ALBUMIN 2.8 g/dl (3.4-5.0); ANION GAP 6 (8-16); BILIRUBIN,TOTAL 3.4 mg/dL (0.2-1.0); CALCIUM 8.5 mg/dL (8.5-10.1); CO2 28 mmol/L (21-32); CREATININE 0.7 mg/dL (0.7-1.3); GLUCOSE,RANDOM 88 mg/dL (74-106); LDH 208 U/L (87-241); SGOT/AST 40 U/L (15-37); SGPT/ALT 26 U/L (12-78); TOT PROT 5.7 g/dl (6.4-8.2)
[2017-04-27 07:28] LABS: ALK PHOS 161 U/L (45-117)
[2017-04-27] MEDS: METOPROLOL SUCCINATE 25 MG TAB.SR.24H (FP) PO SCH (09:23)
[2017-04-27] MEDS: ASCORBIC ACID 500 MG TABLET (FP) PO SCH (09:23)
[2017-04-27] MEDS: MULTIVITAMINS THER W-MINERALS COMBO TABLET (FP) PO SCH (09:23)
--- NOTE | 2017-04-27 09:31 | PN ---
Progress Note, Physician Chief Complaint: Events noted Not in distress at this time Liver biopsy negative for malignancy History of Present Illness: Patient was seen and examined. Awake and alert. Chart was reviewed Denies chest pain, SOB or palpitation - Current Medication List Current Medications: Active Medications Acetaminophen (Tylenol -) 650 mg PO Q6H PRN Ascorbic Acid (Vitamin C -) 500 mg PO DAILY [facility] Last Admin: 04/27/17 09:23 Dose: 500 mg Pantoprazole Sodium 80 mg/ (Sodium Chloride) 100 mls @ 10 mls/hr IVPB Q10H ZACHERY PRN Reason: 8 MG/HR Last Admin: 04/27/17 06:15 Dose: Not Given Loperamide HCl (Imodium -) 2 mg PO TID PRN PRN Reason: DIARRHEA Last Admin: 04/24/17 18:05 Dose: 2 mg Melatonin (Melatonin) 3 mg PO HS [facility] Last Admin: 04/26/17 22:21 Dose: 3 mg Metoprolol Succinate (Toprol Xl -) 25 mg PO DAILY [facility] Last Admin: 04/27/17 09:23 Dose: 25 mg Multivitamins/Minerals (Theragran-M) 1 each PO DAILY [facility] Last Admin: 04/27/17 09:23 Dose: 1 each - Objective Vital Signs: Vital Signs Temperature 98.6 F 04/27/17 09:21 Pulse Rate 76 04/27/17 09:21 Respiratory Rate 18 04/27/17 09:21 Blood Pressure 115/54 04/27/17 09:21 O2 Sat by Pulse Oximetry (%) 96 04/26/17 21:00 Neck: Yes: Supple Cardiovascular: Yes: Regular Rate and Rhythm, Murmur (3/6 NORM right intercostal space, 2/6 SM LSB and apex), S1, S2 Respiratory: Yes: Diminished Gastrointestinal: Yes: Normal Bowel Sounds, Soft. No: Tenderness Edema: No Additional Findings/Remarks: Review of Systems Cardiovascular: As noted above Respiratory: denies: Cough or Sputum Production Gastrointestinal: denies: Nausea, Vomiting, Diarrhea, Constipation or Abdominal Discomfort Musculoskeletal: No Symptoms Reported Endocrine: No Symptoms Reported Labs: CBC, BMP 04/27/17 06:00 04/27/17 06:00 INR, PTT INR 1.24 (0.82-1.09) H 04/27/17 06:00 Fibrinogen 370.0 mg/dL (238-498) 04/26/17 20:15 Problem List - Problems (1) Bleeding from colostomy stoma Code(s): K94.01 - COLOSTOMY HEMORRHAGE (2) Colon cancer metastasized to liver Code(s): C18.9 - MALIGNANT NEOPLASM OF COLON, UNSPECIFIED C78.7 - SECONDARY MALIG NEOPLASM OF LIVER AND INTRAHEPATIC BILE DUCT (3) Diastolic dysfunction Code(s): I51.9 - HEART DISEASE, UNSPECIFIED (4) Ileostomy present Code(s): Z93.2 - ILEOSTOMY STATUS (5) Liver mass Code(s): R16.0 - HEPATOMEGALY, NOT ELSEWHERE CLASSIFIED (6) Moderate aortic valve stenosis Code(s): I35.0 - NONRHEUMATIC AORTIC (VALVE) STENOSIS (7) Pancytopenia due to chemotherapy Code(s): D61.810 - ANTINEOPLASTIC CHEMOTHERAPY INDUCED PANCYTOPENIA (8) Pulmonary hypertension Code(s): I27.2 - OTHER SECONDARY PULMONARY HYPERTENSION (9) Tricuspid valve regurgitation Code(s): I07.1 - RHEUMATIC TRICUSPID INSUFFICIENCY Qualifiers: Cardiac valve disease etiology: nonrheumatic Qualified Code(s): I36.1 - Nonrheumatic tricuspid (valve) insufficiency Assessment/Plan 1. Aortic valve disease, aortic valve stenosis moderate in severity - asymptomatic 2. Diastolic LV dysfunction with class 0-I NYHA classification LV failure, euvolemic 3. Moderate TR with moderate degree of pulmonary HTN 4. HTN 5. Metastatic colon carcinoma post resection with ileostomy and stomal bleed on palliative chemotherapy as outpatient 6. Liver mass, negative for metastasis 6. Ojeda-cytopenia post PRBC transfusion PLAN: 1. No specific cardiac therapy warranted at this time 2. Started Metoprolol ER 25 mg once a day as tolerated 3. ACEI or ARBS if clinically indicated 4. Outpatient F/U recommended for the above noted valvular pathologies. 5. Oncology follow up as outpatient Say Carranza MD
--- NOTE | 2017-04-27 12:01 | PN ---
Progress Note, Physician History of Present Illness: Pt w/o SOB, CP, dizziness, abd pain. Pt w/o nose bleed, no stoma bleed. Pt is s/p EGD, ileoscopy. Pt had liver Bx couple of days ago. Pt received unit PRBC, unit FFP. - Current Medication List Current Medications: Active Medications Acetaminophen (Tylenol -) 650 mg PO Q6H PRN Ascorbic Acid (Vitamin C -) 500 mg PO DAILY [facility] Last Admin: 04/27/17 09:23 Dose: 500 mg Pantoprazole Sodium 80 mg/ (Sodium Chloride) 100 mls @ 10 mls/hr IVPB Q10H ZACHERY PRN Reason: 8 MG/HR Last Admin: 04/27/17 09:53 Dose: 10 mls/hr Loperamide HCl (Imodium -) 2 mg PO TID PRN PRN Reason: DIARRHEA Last Admin: 04/24/17 18:05 Dose: 2 mg Melatonin (Melatonin) 3 mg PO HS [facility] Last Admin: 04/26/17 22:21 Dose: 3 mg Metoprolol Succinate (Toprol Xl -) 25 mg PO DAILY [facility] Last Admin: 04/27/17 09:23 Dose: 25 mg Multivitamins/Minerals (Theragran-M) 1 each PO DAILY [facility] Last Admin: 04/27/17 09:23 Dose: 1 each - Objective Vital Signs: Vital Signs Temperature 98.6 F 04/27/17 09:21 Pulse Rate 76 04/27/17 09:21 Respiratory Rate 18 04/27/17 09:21 Blood Pressure 115/54 04/27/17 09:21 O2 Sat by Pulse Oximetry (%) 96 04/26/17 21:00 Constitutional: Yes: No Distress, Calm Cardiovascular: Yes: Regular Rate and Rhythm, Murmur, S1, S2 Respiratory: Yes: Regular, CTA Bilaterally. No: Rales Gastrointestinal: Yes: Normal Bowel Sounds, Soft. No: Tenderness Edema: LLE: Trace, RLE: Trace Neurological: Yes: Alert, Oriented Labs: CBC, BMP 04/27/17 06:00 04/27/17 06:00 INR, PTT INR 1.24 (0.82-1.09) H 04/27/17 06:00 Fibrinogen 370.0 mg/dL (238-498) 04/26/17 20:15 Problem List - Problems (1) Anemia Code(s): D64.9 - ANEMIA, UNSPECIFIED Qualifiers: Anemia type: unspecified type Qualified Code(s): D64.9 - Anemia, unspecified (2) Leukopenia Code(s): D72.819 - DECREASED WHITE BLOOD CELL COUNT, UNSPECIFIED (3) Bleeding from colostomy stoma Code(s): K94.01 - COLOSTOMY HEMORRHAGE (4) Liver mass Code(s): R16.0 - HEPATOMEGALY, NOT ELSEWHERE CLASSIFIED (5) Epistaxis Code(s): R04.0 - EPISTAXIS (6) Colon cancer Code(s): C18.9 - MALIGNANT NEOPLASM OF COLON, UNSPECIFIED (7) Ileostomy present Code(s): Z93.2 - ILEOSTOMY STATUS (8) Severe tricuspid valve regurgitation Code(s): I07.1 - RHEUMATIC TRICUSPID INSUFFICIENCY (9) Pulmonary hypertension Code(s): I27.2 - OTHER SECONDARY PULMONARY HYPERTENSION (10) Thrombocytopenia Code(s): D69.6 - THROMBOCYTOPENIA, UNSPECIFIED Assessment/Plan s/p PRBC Tx, s/p FFP Tx, again yesterday monitor CBC GI, Sx, Onco consult appreciated. s/p EGD, ileoscopy, to f/u with GI ECHO report was reviewed, cardio consult appreciated. To f/u with Heme/ Onco. Pt had liver bx couple of days ago, report is pending, to f/u report. AM labs
--- NOTE | 2017-04-27 12:32 | PN ---
Progress Note (short form) - Note Progress Note: Patient seen and examined. events noted Patient continues to feel well.Patient denies any complains. No pain at the site of biopsy. No further epistaxis/hemetemesis.Normal brown stool in the ostomy noted by him. Otherwise ROS is negative. O/E: Cor:systolic murmur Lungs: Clear to P&A Abd: Soft, Normal bowel sounds, No organomegaly. formed stool in the colostomy bag. Site of liver biopsy with no pain or echymosses Ext:No significant edema Skin: No rashes, Integument intact LE: rt >left ( chronic) Last Vital Signs Temp Pulse Resp BP Pulse Ox 98.6 F 76 18 115/54 96 04/27/17 09:21 04/27/17 09:21 04/27/17 09:21 04/27/17 09:21 04/26/17 21:00 Abnormal Lab Results 04/25/17 04/26/17 04/26/17 17:15 20:15 20:15 RBC 2.71 L D Hgb 8.4 L D Hct 25.3 L D RDW 20.5 H Plt Count 100 L D Monocytes % 17.3 H Retic Count INR 1.24 H PTT (Actin FS) 36.2 H Anion Gap Total Bilirubin Direct Bilirubin AST Alkaline Phosphatase Total Protein Albumin Crossmatch See Detail 04/27/17 04/27/17 04/27/17 06:00 06:00 06:00 RBC 2.44 L Hgb 7.7 L Hct 22.5 L RDW 21.5 H Plt Count 82 L Monocytes % 16.4 H Retic Count INR 1.24 H PTT (Actin FS) 35.8 H Anion Gap Total Bilirubin Direct Bilirubin AST Alkaline Phosphatase Total Protein Albumin Crossmatch 04/27/17 04/27/17 04/27/17 06:00 06:00 06:00 RBC Hgb Hct RDW Plt Count Monocytes % Retic Count 2.00 H INR PTT (Actin FS) Anion Gap 6 L Total Bilirubin 3.4 H D Direct Bilirubin 0.7 H AST 40 H Alkaline Phosphatase 161 H Total Protein 5.7 L Albumin 2.8 L Crossmatch Current Medications Generic Name Dose Route Start Last Admin Trade Name Freq PRN Reason Stop Dose Admin Acetaminophen 650 mg 04/16/17 22:30 Tylenol - PO Q6H PRN Ascorbic Acid 500 mg 04/17/17 10:00 04/27/17 09:23 Vitamin C - PO 500 mg DAILY ZACHERY Administration Pantoprazole Sodium 80 mg/ 100 mls @ 10 mls/hr 04/21/17 10:15 04/27/17 09:53 Sodium Chloride IVPB 10 mls/hr Q10H ZACHERY Administration 8 MG/HR Loperamide HCl 2 mg 04/20/17 13:17 04/24/17 18:05 Imodium - PO 2 mg TID PRN Administration DIARRHEA Melatonin 3 mg 04/16/17 23:15 04/26/17 22:21 Melatonin PO 3 mg HS ZACHERY Administration Metoprolol Succinate 25 mg 04/27/17 10:00 04/27/17 09:23 Toprol Xl - PO 25 mg DAILY [facility]ACHERY Administration Multivitamins/Minerals 1 each 04/17/17 12:45 04/27/17 09:23 Theragran-M PO 1 each DAILY [facility] Administration Assessment/Plan: is a 76 year old male who is admitted for upper GI bleed. He also has a history of Colon cancer, presently was on adjuvant chemo with Xelox, last dose of xeloda being 04/16, with most recently CT finding of Liver mets most likely, biopsy done on 04/24 which was negative for metastasis. Anemia: -s/p PRBC and FFP yesterday -US liver negative for bleed -CT a/p- report reviewed -there was increase in the Hct/Platelet yesterday pm, but now again there is a decline. -Re: hemolysis, LDH not very elevated but has a component of indirect hyperbiliruninemia, hapto pending (??post transfusion of products, ?valvular hemolysis from aortic stenosis, but it is moderate in severity). -will need to monitor, repeat CBC in the pm, if further dropping, then will order imaging studies per IR. GI bleed on admission: -s/p EGD -report reviewed -presently continues to be on protonix drip -trend down in h/h, will need to be monitored. -discussed with GI. Colon cancer,imaging was with possibility of liver mets: -liver biopsy done , but was negative for malignancy -will need followup with as an out patient Coagulopathy secondary to liver mets -FFP/platelets as needed. -factor levels and mixing studies will not be resulted accurately in the setting of recent FFP administration. Thrombocytopenia secondary to underlying liver mets and chemotherapy -supportive care /transfusions needed -ordered CBC/Chem/PT/PTT for am labs Valvular abn: cardiology follow-up appreciated will follow
[2017-04-27 16:29] LABS: BASOPHIL 0.9 % (0-2.0); EOSINOPHIL 2.3 % (0-4.5); MCH 31.1 pg (25.7-33.7); MCHC 33.3 g/dl (32.0-35.9); MEAN CELL VOLUME 93.6 fl (80-96); NEUTROPHILS 60.8 % (42.8-82.8); PLATELET COUNT 98 K/MM3 (134-434); RDW 20.9 % (11.9-15.9); WHITE BLOOD COUNT 4.2 K/mm3 (4.0-10.0)
[2017-04-27 16:39] LABS: INR 1.19 (0.82-1.09); PROTHROMBIN TIME (PATIENT) 13.1 SEC (9.98-11.88)
[2017-04-27 16:42] LABS: ACTIVATED PTT 36.9 SECONDS (26.9-34.4)
[2017-04-27] MEDS ORDERED: PT OWN MED DRAWER 7, Y5N ONE (21:52)
[2017-04-27] MEDS: MELATONIN 1 MG TABLET PO SCH (22:34)
[2017-04-28] MEDS: PANTOPRAZOLE SODIUM 80 MG in SODIUM CHLORIDE 100 ML IVPB SCH ×4 (02:55→22:50)
[2017-04-28 07:34] LABS: INR 1.28 (0.82-1.09); PROTHROMBIN TIME (PATIENT) 14.2 SEC (9.98-11.88)
[2017-04-28 07:40] LABS: BASOPHIL 0.7 % (0-2.0); EOSINOPHIL 2.6 % (0-4.5); MCH 31.1 pg (25.7-33.7); MCHC 33.2 g/dl (32.0-35.9); MEAN CELL VOLUME 93.7 fl (80-96); NEUTROPHILS 60.7 % (42.8-82.8); PLATELET COUNT 91 K/MM3 (134-434); RDW 21.1 % (11.9-15.9); WHITE BLOOD COUNT 4.6 K/mm3 (4.0-10.0)
[2017-04-28 08:08] LABS: ALBUMIN 2.7 g/dl (3.4-5.0); ALK PHOS 188 U/L (45-117); ANION GAP 9 (8-16); BILIRUBIN,TOTAL 1.6 mg/dL (0.2-1.0); CALCIUM 8.2 mg/dL (8.5-10.1); CO2 24 mmol/L (21-32); CREATININE 0.7 mg/dL (0.7-1.3); GLUCOSE,RANDOM 82 mg/dL (74-106); LDH 211 U/L (87-241); SGOT/AST 47 U/L (15-37); SGPT/ALT 32 U/L (12-78); TOT PROT 5.6 g/dl (6.4-8.2)
[2017-04-28] MEDS: ASCORBIC ACID 500 MG TABLET (FP) PO SCH ×2 (09:51→22:50)
[2017-04-28] MEDS: METOPROLOL SUCCINATE 25 MG TAB.SR.24H (FP) PO SCH (09:51)
[2017-04-28] MEDS: MULTIVITAMINS THER W-MINERALS COMBO TABLET (FP) PO SCH (09:51)
--- NOTE | 2017-04-28 10:15 | PN ---
Progress Note, Physician History of Present Illness: Pt w/o SOB, CP, dizziness, abd pain. Pt w/o nose bleed, no stoma bleed. Pt is s/p EGD, ileoscopy. Pt had liver Bx couple of days ago. Pt received unit PRBCs, unit FFPs. - Current Medication List Current Medications: Active Medications Acetaminophen (Tylenol -) 650 mg PO Q6H PRN Ascorbic Acid (Vitamin C -) 500 mg PO DAILY [facility] Last Admin: 04/28/17 09:51 Dose: 500 mg Pantoprazole Sodium 80 mg/ (Sodium Chloride) 100 mls @ 10 mls/hr IVPB Q10H ZACHERY PRN Reason: 8 MG/HR Last Admin: 04/28/17 08:09 Dose: 10 mls/hr Loperamide HCl (Imodium -) 2 mg PO TID PRN PRN Reason: DIARRHEA Last Admin: 04/24/17 18:05 Dose: 2 mg Melatonin (Melatonin) 3 mg PO HS [facility] Last Admin: 04/27/17 22:34 Dose: 3 mg Metoprolol Succinate (Toprol Xl -) 25 mg PO DAILY [facility] Last Admin: 04/28/17 09:51 Dose: 25 mg Multivitamins/Minerals (Theragran-M) 1 each PO DAILY [facility] Last Admin: 04/28/17 09:51 Dose: 1 each - Objective Vital Signs: Vital Signs Temperature 98.2 F 04/28/17 09:00 Pulse Rate 68 04/28/17 09:00 Respiratory Rate 18 04/28/17 09:00 Blood Pressure 101/50 04/28/17 09:00 O2 Sat by Pulse Oximetry (%) 98 04/27/17 21:00 Constitutional: Yes: No Distress, Calm Cardiovascular: Yes: Regular Rate and Rhythm, Murmur, S1, S2 Respiratory: Yes: Regular, CTA Bilaterally. No: Rales Gastrointestinal: Yes: Normal Bowel Sounds, Soft. No: Tenderness Edema: No Neurological: Yes: Alert, Oriented Labs: CBC, BMP 04/28/17 06:00 04/28/17 06:00 INR, PTT INR 1.28 (0.82-1.09) H 04/28/17 06:00 Fibrinogen 370.0 mg/dL (238-498) 04/26/17 20:15 Problem List - Problems (1) Anemia Code(s): D64.9 - ANEMIA, UNSPECIFIED Qualifiers: Anemia type: unspecified type Qualified Code(s): D64.9 - Anemia, unspecified (2) Leukopenia Code(s): D72.819 - DECREASED WHITE BLOOD CELL COUNT, UNSPECIFIED (3) Bleeding from colostomy stoma Code(s): K94.01 - COLOSTOMY HEMORRHAGE (4) Liver mass Code(s): R16.0 - HEPATOMEGALY, NOT ELSEWHERE CLASSIFIED (5) Epistaxis Code(s): R04.0 - EPISTAXIS (6) Colon cancer Code(s): C18.9 - MALIGNANT NEOPLASM OF COLON, UNSPECIFIED (7) Ileostomy present Code(s): Z93.2 - ILEOSTOMY STATUS (8) Severe tricuspid valve regurgitation Code(s): I07.1 - RHEUMATIC TRICUSPID INSUFFICIENCY (9) Pulmonary hypertension Code(s): I27.2 - OTHER SECONDARY PULMONARY HYPERTENSION (10) Thrombocytopenia Code(s): D69.6 - THROMBOCYTOPENIA, UNSPECIFIED Assessment/Plan s/p PRBC Tx, s/p FFP Tx, again yesterday monitor CBC GI, Sx, Onco consult appreciated. s/p EGD, ileoscopy, to f/u with GI ECHO report was reviewed, cardio consult appreciated. To f/u with Heme/ Onco. Pt had liver bx couple of days ago, no malignacy H/H are trending down, to monitor AM labs
--- NOTE | 2017-04-28 10:43 | PN ---
Progress Note, Physician History of Present Illness: Liver biopsy negative for malignancy, no complaints. - Current Medication List Current Medications: Active Medications Acetaminophen (Tylenol -) 650 mg PO Q6H PRN Ascorbic Acid (Vitamin C -) 500 mg PO DAILY [facility] Last Admin: 04/28/17 09:51 Dose: 500 mg Pantoprazole Sodium 80 mg/ (Sodium Chloride) 100 mls @ 10 mls/hr IVPB Q10H ZACHERY PRN Reason: 8 MG/HR Last Admin: 04/28/17 08:09 Dose: 10 mls/hr Loperamide HCl (Imodium -) 2 mg PO TID PRN PRN Reason: DIARRHEA Last Admin: 04/24/17 18:05 Dose: 2 mg Melatonin (Melatonin) 3 mg PO HS [facility] Last Admin: 04/27/17 22:34 Dose: 3 mg Metoprolol Succinate (Toprol Xl -) 25 mg PO DAILY [facility] Last Admin: 04/28/17 09:51 Dose: 25 mg Multivitamins/Minerals (Theragran-M) 1 each PO DAILY [facility] Last Admin: 04/28/17 09:51 Dose: 1 each - Objective Vital Signs: Vital Signs Temperature 98.2 F 04/28/17 09:00 Pulse Rate 68 04/28/17 09:00 Respiratory Rate 18 04/28/17 09:00 Blood Pressure 101/50 04/28/17 09:00 O2 Sat by Pulse Oximetry (%) 98 04/27/17 21:00 Constitutional: Yes: No Distress, Calm Neck: Yes: Supple Cardiovascular: Yes: Regular Rate and Rhythm, Murmur (2/6 SM) Respiratory: Yes: Regular, Diminished Gastrointestinal: Yes: Normal Bowel Sounds, Soft Edema: No Labs: CBC, BMP 04/28/17 06:00 04/28/17 06:00 INR, PTT INR 1.28 (0.82-1.09) H 04/28/17 06:00 Fibrinogen 370.0 mg/dL (238-498) 04/26/17 20:15 Problem List - Problems (1) Colon cancer metastasized to liver Code(s): C18.9 - MALIGNANT NEOPLASM OF COLON, UNSPECIFIED C78.7 - SECONDARY MALIG NEOPLASM OF LIVER AND INTRAHEPATIC BILE DUCT (2) Hemorrhage from ileostomy Code(s): K94.11 - ENTEROSTOMY HEMORRHAGE (3) Pulmonary hypertension Code(s): I27.2 - OTHER SECONDARY PULMONARY HYPERTENSION (4) Diastolic dysfunction Code(s): I51.9 - HEART DISEASE, UNSPECIFIED (5) Moderate aortic valve stenosis Code(s): I35.0 - NONRHEUMATIC AORTIC (VALVE) STENOSIS (6) Pancytopenia due to chemotherapy Code(s): D61.810 - ANTINEOPLASTIC CHEMOTHERAPY INDUCED PANCYTOPENIA (7) Severe tricuspid valve regurgitation Code(s): I07.1 - RHEUMATIC TRICUSPID INSUFFICIENCY Assessment/Plan 04/19/2017 Echo: Normal LV size and fxn, severe TR, RVSP 40-50 mmHg, mod 1. Aortic valve disease, aortic valve stenosis moderate in severity - asymptomatic 2. Diastolic LV dysfunction with class 0-I NYHA classification LV failure, euvolemic 3. Moderate TR with moderate degree of pulmonary HTN 4. HTN 5. Metastatic colon carcinoma post resection with ileostomy and stomal bleed on palliative chemotherapy as outpatient 6. Liver mass, negative for metastasis 6. Ojeda-cytopenia post PRBC transfusion PLAN: 1. Continue Toprol XL 25 qd and start losartan 25 qd as hemodynamics tolerate 2. Outpatient F/U recommended for the above noted valvular pathologies. 3. F/u repeat abd/pelvic CT scan results
--- NOTE | 2017-04-28 14:21 | PN ---
Progress Note (short form) - Note Progress Note: Patient seen and examined. Patient continues to feel well.Patient denies any complains. No pain at the site of biopsy. No further epistaxis/hemetemesis.Normal brown stool in the ostomy noted by him. Otherwise ROS is negative. O/E: Cor:systolic murmur Lungs: Clear to P&A Abd: Soft, Normal bowel sounds, No organomegaly. formed stool in the colostomy bag. Site of liver biopsy with no pain or echymosses Ext:No significant edema Skin: No rashes, Integument intact LE: rt >left ( chronic) Last Vital Signs Temp Pulse Resp BP Pulse Ox 98.2 F 68 18 101/50 98 04/28/17 09:00 04/28/17 09:00 04/28/17 09:00 04/28/17 09:00 04/27/17 21:00 INR, PTT INR 1.28 (0.82-1.09) H 04/28/17 06:00 Fibrinogen 370.0 mg/dL (238-498) 04/26/17 20:15 CBC, BMP 04/28/17 06:00 04/28/17 06:00 Current Medications Generic Name Dose Route Start Last Admin Trade Name Freq PRN Reason Stop Dose Admin Acetaminophen 650 mg 04/16/17 22:30 Tylenol - PO Q6H PRN Ascorbic Acid 500 mg 04/17/17 10:00 04/27/17 09:23 Vitamin C - PO 500 mg DAILY [facility]ACHERY Administration Pantoprazole Sodium 80 mg/ 100 mls @ 10 mls/hr 04/21/17 10:15 04/27/17 09:53 Sodium Chloride IVPB 10 mls/hr Q10H ZACHERY Administration 8 MG/HR Loperamide HCl 2 mg 04/20/17 13:17 04/24/17 18:05 Imodium - PO 2 mg TID PRN Administration DIARRHEA Melatonin 3 mg 04/16/17 23:15 04/26/17 22:21 Melatonin PO 3 mg HS [facility] Administration Metoprolol Succinate 25 mg 04/27/17 10:00 04/27/17 09:23 Toprol Xl - PO 25 mg DAILY [facility] Administration Multivitamins/Minerals 1 each 04/17/17 12:45 04/27/17 09:23 Theragran-M PO 1 each DAILY [facility] Administration Assessment/Plan: is a 76 year old male who is admitted for upper GI bleed. He also has a history of Colon cancer, presently was on adjuvant chemo with Xelox, last dose of xeloda being 04/16, with most recently CT finding of Liver mets most likely, biopsy done on 04/24 which was negative for metastasis. Anemia: -s/p PRBC and FFP -Slow ?bleeding ? resolved -US liver negative for bleed -CT a/p non con - report reviewed -Now again there is a down trend in the hgb, d/w IR, CT scan, with and without contrast no bleeding noted. -also to discussed with GI, , appreciate 's eval -repeat CBC in the pm reviewed, improved upto 8.7 with no intervention -discussed with the daughter Jennifer over the phone this am about the work-up GI bleed on admission: -s/p EGD -report reviewed -presently continues to be on protonix drip -trend down in h/h, will need to be monitored. -discussed with GI today, seen by today Colon cancer,imaging was with possibility of liver mets: -liver biopsy done , but was negative for malignancy -will need followup with as an out patient Coagulopathy secondary to liver mets -FFP/platelets as needed. -now PT/PTT wnl Thrombocytopenia secondary to underlying liver dz and chemotherapy -supportive care /transfusions needed -ordered CBC/Chem/PT/PTT for am labs Valvular abn: cardiology follow-up appreciated will follow
[2017-04-28 16:31] LABS: MCH 31.3 pg (25.7-33.7); MCHC 33.2 g/dl (32.0-35.9); MEAN CELL VOLUME 94.2 fl (80-96); MEAN PLT VOLUME 9.9 fl (7.5-11.1); PLATELET COUNT 108 K/MM3 (134-434); RDW 20.9 % (11.9-15.9); WHITE BLOOD COUNT 4.8 K/mm3 (4.0-10.0)
--- NOTE | 2017-04-28 17:03 | PN ---
GI Progress Note Subjective: GI NOte: Dwindling Hb noted but no overt GI bleeding seen. The ileostomy output is dark brown but not grossly bloody or black. Discussed the CT with Dr Chris who finds no overt bleeding from the biopsy site so no intervention was necessary. Kevon denies abdominal or orthostatic symptoms. - Objective Vital Signs: Vital Signs Temperature 97.7 F 04/28/17 15:15 Pulse Rate 60 04/28/17 15:15 Respiratory Rate 18 04/28/17 15:15 Blood Pressure 109/52 04/28/17 15:15 O2 Sat by Pulse Oximetry (%) 98 04/28/17 09:10 Constitutional: No Distress Gastrointestinal Inspection: Yes: Other (brown ileal effluent) ...Auscultate: Yes: Normoactive Bowel Sounds ...Palpate: Yes: Soft, Other (nontender) Labs: CBC, BMP 04/28/17 16:10 04/28/17 06:00 INR, PTT INR 1.28 (0.82-1.09) H 04/28/17 06:00 Fibrinogen 370.0 mg/dL (238-498) 04/26/17 20:15 Assessment/Plan Suspect that there was initial bleeding from the liver biopsy site which has fortunately stopped. Will follow CBCs and resume iron and vitamin C
[2017-04-28] MEDS: FERROUS GLUCONATE 324 MG TAB (FP) PO SCH (20:58)
[2017-04-28] MEDS ORDERED: PT OWN MED DRAWER 7, Y5N ONE (22:42)
[2017-04-28] MEDS: MELATONIN 1 MG TABLET PO SCH (22:49)
[2017-04-29] MEDS: PANTOPRAZOLE SODIUM 80 MG in SODIUM CHLORIDE 100 ML IVPB SCH ×4 (06:01→18:07)
[2017-04-29 08:29] LABS: MCH 31.5 pg (25.7-33.7); MCHC 33.8 g/dl (32.0-35.9); MEAN CELL VOLUME 93.3 fl (80-96); PLATELET COUNT 89 K/MM3 (134-434); RDW 21.7 % (11.9-15.9); WHITE BLOOD COUNT 4.5 K/mm3 (4.0-10.0)
[2017-04-29] MEDS ORDERED: PT OWN MED DRAWER 7, Y5N ONE ×2 (08:56→21:11)
[2017-04-29 08:57] LABS: ALBUMIN 2.8 g/dl (3.4-5.0); ANION GAP 7 (8-16); BILIRUBIN,DIRECT 0.6 mg/dL (0.0-0.2); CALCIUM 8.6 mg/dL (8.5-10.1); CO2 26 mmol/L (21-32); CREATININE 0.8 mg/dL (0.7-1.3); GLUCOSE,RANDOM 84 mg/dL (74-106); LDH 217 U/L (87-241); SGOT/AST 45 U/L (15-37); SGPT/ALT 31 U/L (12-78)
[2017-04-29 08:59] LABS: ALK PHOS 215 U/L (45-117); BILIRUBIN,TOTAL 1.3 mg/dL (0.2-1.0)
[2017-04-29] MEDS: FERROUS GLUCONATE 324 MG TAB (FP) PO SCH ×3 (09:05→17:39)
[2017-04-29] MEDS: MULTIVITAMINS THER W-MINERALS COMBO TABLET (FP) PO SCH (09:11)
[2017-04-29] MEDS: METOPROLOL SUCCINATE 25 MG TAB.SR.24H (FP) PO SCH (09:11)
[2017-04-29] MEDS: ASCORBIC ACID 500 MG TABLET (FP) PO SCH ×2 (09:12→21:50)
[2017-04-29 09:49] LABS: ANISOCYTOSIS 2+
[2017-04-29 09:52] LABS: PLATELET ESTIMATE ADEQUATE (NORMAL)
--- NOTE | 2017-04-29 12:47 | PN ---
Progress Note, Physician History of Present Illness: Pt w/o SOB, CP, dizziness, abd pain. Pt w/o nose bleed, no stoma bleed. - Current Medication List Current Medications: Active Medications Acetaminophen (Tylenol -) 650 mg PO Q6H PRN Ascorbic Acid (Vitamin C -) 500 mg PO BID [facility] Last Admin: 04/29/17 09:12 Dose: 500 mg Ferrous Gluconate (Fergon -) 324 mg PO TIDCM [facility] Last Admin: 04/29/17 12:32 Dose: 324 mg Pantoprazole Sodium 80 mg/ (Sodium Chloride) 100 mls @ 10 mls/hr IVPB Q10H ZACHERY PRN Reason: 8 MG/HR Last Admin: 04/29/17 09:07 Dose: Not Given Loperamide HCl (Imodium -) 2 mg PO TID PRN PRN Reason: DIARRHEA Last Admin: 04/24/17 18:05 Dose: 2 mg Melatonin (Melatonin) 3 mg PO HS [facility] Last Admin: 04/28/17 22:49 Dose: 3 mg Metoprolol Succinate (Toprol Xl -) 25 mg PO DAILY [facility] Last Admin: 04/29/17 09:11 Dose: 25 mg Multivitamins/Minerals (Theragran-M) 1 each PO DAILY [facility] Last Admin: 04/29/17 09:11 Dose: 1 each - Objective Vital Signs: Vital Signs Temperature 98.6 F 04/29/17 02:00 Pulse Rate 61 04/29/17 02:00 Respiratory Rate 18 04/29/17 02:00 Blood Pressure 99/51 04/29/17 02:00 O2 Sat by Pulse Oximetry (%) 98 04/28/17 21:00 Constitutional: Yes: No Distress, Calm Cardiovascular: Yes: Regular Rate and Rhythm, Murmur, S1, S2 Respiratory: Yes: Regular, CTA Bilaterally. No: Rales Gastrointestinal: Yes: Normal Bowel Sounds, Soft. No: Tenderness Edema: LLE: Trace (old) Neurological: Yes: Alert, Oriented Labs: CBC, BMP 04/29/17 06:55 04/29/17 06:55 INR, PTT INR 1.28 (0.82-1.09) H 04/28/17 06:00 Fibrinogen 370.0 mg/dL (238-498) 04/26/17 20:15 Problem List - Problems (1) Anemia Code(s): D64.9 - ANEMIA, UNSPECIFIED Qualifiers: Anemia type: unspecified type Qualified Code(s): D64.9 - Anemia, unspecified (2) Leukopenia Code(s): D72.819 - DECREASED WHITE BLOOD CELL COUNT, UNSPECIFIED (3) Bleeding from colostomy stoma Code(s): K94.01 - COLOSTOMY HEMORRHAGE (4) Liver mass Code(s): R16.0 - HEPATOMEGALY, NOT ELSEWHERE CLASSIFIED (5) Epistaxis Code(s): R04.0 - EPISTAXIS (6) Colon cancer Code(s): C18.9 - MALIGNANT NEOPLASM OF COLON, UNSPECIFIED (7) Ileostomy present Code(s): Z93.2 - ILEOSTOMY STATUS (8) Severe tricuspid valve regurgitation Code(s): I07.1 - RHEUMATIC TRICUSPID INSUFFICIENCY (9) Pulmonary hypertension Code(s): I27.2 - OTHER SECONDARY PULMONARY HYPERTENSION (10) Thrombocytopenia Code(s): D69.6 - THROMBOCYTOPENIA, UNSPECIFIED Assessment/Plan s/p PRBC Tx, s/p FFP Tx, again yesterday monitor CBC GI, Sx, Onco consult appreciated. s/p EGD, ileoscopy, to f/u with GI ECHO report was reviewed, cardio consult appreciated. To f/u with Heme/ Onco. Pt had liver bx couple of days ago, no malignacy To monitor H/H in AM; if stable DC to rehab AM labs
--- NOTE | 2017-04-29 12:59 | PN ---
Progress Note (short form) - Note Progress Note: Patient seen and examined. Patient continues to feel well.Patient denies any complains. No pain at the site of biopsy. No further epistaxis/hemetemesis.Normal brown stool in the ostomy noted by him. Otherwise ROS is negative. O/E: Cor:systolic murmur Lungs: Clear to P&A Abd: Soft, Normal bowel sounds, No organomegaly. formed stool in the colostomy bag. Site of liver biopsy with no pain or echymosses Ext:No significant edema Skin: No rashes, Integument intact LE: rt >left ( chronic) Abnormal Lab Results 04/25/17 04/28/17 04/29/17 17:15 16:10 06:55 RBC 2.77 L 2.63 L Hgb 8.7 L D 8.3 L Hct 26.1 L 24.5 L RDW 20.9 H 21.7 H Plt Count 108 L 89 L Retic Count Anion Gap Total Bilirubin Direct Bilirubin AST Alkaline Phosphatase Total Protein Albumin Crossmatch See Detail 04/29/17 04/29/17 06:55 06:55 RBC Hgb Hct RDW Plt Count Retic Count 3.15 H D Anion Gap 7 L Total Bilirubin 1.3 H Direct Bilirubin 0.6 H AST 45 H Alkaline Phosphatase 215 H Total Protein 6.0 L Albumin 2.8 L Crossmatch Last Vital Signs Temp Pulse Resp BP Pulse Ox 98.6 F 61 18 99/51 98 04/29/17 02:00 04/29/17 02:00 04/29/17 02:00 04/29/17 02:00 04/28/17 21:00 INR, PTT INR 1.28 (0.82-1.09) H 04/28/17 06:00 Fibrinogen 370.0 mg/dL (238-498) 04/26/17 20:15 Current Medications Generic Name Dose Route Start Last Admin Trade Name Freq PRN Reason Stop Dose Admin Acetaminophen 650 mg 04/16/17 22:30 Tylenol - PO Q6H PRN Ascorbic Acid 500 mg 04/28/17 22:00 04/29/17 09:12 Vitamin C - PO 500 mg BID [facility] Administration Ferrous Gluconate 324 mg 04/28/17 17:30 04/29/17 12:32 Fergon - PO 324 mg TIDCM [facility] Administration Pantoprazole Sodium 80 mg/ 100 mls @ 10 mls/hr 04/21/17 10:15 04/29/17 09:07 Sodium Chloride IVPB Not Given Q10H ZACHERY 8 MG/HR Loperamide HCl 2 mg 04/20/17 13:17 04/24/17 18:05 Imodium - PO 2 mg TID PRN Administration DIARRHEA Melatonin 3 mg 04/16/17 23:15 04/28/17 22:49 Melatonin PO 3 mg HS [facility] Administration Metoprolol Succinate 25 mg 04/27/17 10:00 04/29/17 09:11 Toprol Xl - PO 25 mg DAILY [facility] Administration Multivitamins/Minerals 1 each 04/17/17 12:45 04/29/17 09:11 Theragran-M PO 1 each DAILY [facility] Administration Assessment/Plan: is a 76 year old male who is admitted for upper GI bleed. He also has a history of Colon cancer, presently was on adjuvant chemo with Xelox, last dose of xeloda being 04/16, with most recently CT finding of Liver mets most likely, biopsy done on 04/24 which was negative for metastasis. Anemia: -s/p PRBC and FFP -Slow ?bleeding ,likely now resolved -US liver negative for bleed -CT a/p non con - report reviewed -repeat contrast CT report reviewed -GI note reviewed -CBC today noted to be stable (hgb of 8.3) -iron supplements -no transfusion today GI bleed on admission: -s/p EGD -report reviewed -PPI -GI f/u Colon cancer,imaging was with possibility of liver mets but biopsy negative: -liver biopsy done , but was negative for malignancy -will need followup with as an out patient, pt and daughter aware. Coagulopathy likely secondary to liver dz: -FFP/platelets as needed. -now PT/PTT wnl -now resolved Thrombocytopenia secondary to underlying liver dz and chemotherapy -supportive care /transfusions needed -ordered CBC/Chem/PT/PTT for am labs Valvular abn: cardiology follow-up appreciated will follow, jori woodson be discharged if Hct continues to be stable.
[2017-04-29 16:16] LABS: INR 1.29 (0.82-1.09); PROTHROMBIN TIME (PATIENT) 14.3 SEC (9.98-11.88)
[2017-04-29 16:19] LABS: ACTIVATED PTT 37.3 SECONDS (26.9-34.4)
--- NOTE | 2017-04-29 19:52 | PN ---
GI Progress Note Subjective: Gi Note: No overt bleeding. NO addominal pain. - Objective Vital Signs: Vital Signs Temperature 97.7 F 04/29/17 18:00 Pulse Rate 66 04/29/17 18:00 Respiratory Rate 20 04/29/17 18:00 Blood Pressure 109/50 04/29/17 18:00 O2 Sat by Pulse Oximetry (%) 94 L 04/29/17 09:00 Constitutional: Calm ...Auscultate: Yes: Normoactive Bowel Sounds ...Palpate: Yes: Soft, Other (nontender) Labs: CBC, BMP 04/29/17 06:55 04/29/17 06:55 INR, PTT INR 1.29 (0.82-1.09) H 04/29/17 06:55 Fibrinogen 370.0 mg/dL (238-498) 04/26/17 20:15 Laboratory Tests 04/29/17 04/29/17 06:55 06:55 Hgb 8.3 L Hct 24.5 L Retic Count 3.15 H D Assessment/Plan Post liver biopsy bleeding appears to have subsided. Has good retic count.
[2017-04-29] MEDS: MELATONIN 1 MG TABLET PO SCH (21:50)
[2017-04-30] MEDS: PANTOPRAZOLE SODIUM 80 MG in SODIUM CHLORIDE 100 ML IVPB SCH (02:05)
[2017-04-30 07:24] LABS: MCH 31.4 pg (25.7-33.7); MCHC 33.5 g/dl (32.0-35.9); MEAN CELL VOLUME 93.9 fl (80-96); MEAN PLT VOLUME 8.6 fl (7.5-11.1); PLATELET COUNT 84 K/MM3 (134-434); WHITE BLOOD COUNT 4.9 K/mm3 (4.0-10.0)
[2017-04-30 08:05] LABS: ANION GAP 7 (8-16); CALCIUM 8.5 mg/dL (8.5-10.1); CO2 25 mmol/L (21-32); GLUCOSE,RANDOM 92 mg/dL (74-106)
[2017-04-30 08:06] LABS: CREATININE 0.7 mg/dL (0.7-1.3)
[2017-04-30] MEDS ORDERED: PT OWN MED DRAWER 7, Y5N ONE ×3 (08:37→13:23)
[2017-04-30] MEDS: FERROUS GLUCONATE 324 MG TAB (FP) PO SCH ×2 (08:38→12:48)
[2017-04-30 10:27] LABS: HYPOCHROMIA 1+; PLATELET ESTIMATE DECREASED (NORMAL)
[2017-04-30 10:28] LABS: ANISOCYTOSIS 2+; MICROCYTOSIS 1+
[2017-04-30 10:41] VITALS: PULSE 72; TEMP 97.5
[2017-04-30] MEDS: ASCORBIC ACID 500 MG TABLET (FP) PO SCH (10:44)
[2017-04-30] MEDS: METOPROLOL SUCCINATE 25 MG TAB.SR.24H (FP) PO SCH (10:44)
[2017-04-30] MEDS: MULTIVITAMINS THER W-MINERALS COMBO TABLET (FP) PO SCH (10:44)
[2017-04-30 12:15] VITALS: BP 101/46
--- NOTE | 2017-04-30 12:34 | DS ---
Physical Examination Vital Signs: Vital Signs Temperature 97.5 F L 04/30/17 10:40 Pulse Rate 72 04/30/17 12:14 Respiratory Rate 20 04/30/17 12:14 Blood Pressure 101/46 04/30/17 12:14 O2 Sat by Pulse Oximetry (%) 95 04/29/17 21:00 Findings/Remarks: Pt w/o bleed (ileo-stoma bag, nose). Pt w/o SOB, CP, Palp, N, V. Pt w good appetite Constitutional: Yes: No Distress, Calm Cardiovascular: Yes: Regular Rate and Rhythm, S1, S2 Respiratory: Yes: Regular, CTA Bilaterally. No: Rales Gastrointestinal: Yes: Normal Bowel Sounds, Soft. No: Tenderness Edema: RLE: Trace Neurological: Yes: Alert, Oriented Labs: CBC, BMP 04/30/17 06:45 04/30/17 06:45 Discharge Summary Reason For Visit: ABDOMINAL PAIN COLON CANCER, BLEEDING Current Active Problems Abdominal pain (Acute) Anemia (Acute) Bleeding from colostomy stoma (Acute) Colon cancer (Acute) Colon cancer metastasized to liver (Acute) Diastolic dysfunction (Acute) Epistaxis (Acute) Hemorrhage from ileostomy (Acute) Ileostomy present (Acute) Leukopenia (Acute) Liver mass (Acute) Moderate aortic valve stenosis (Acute) Pancytopenia due to chemotherapy (Acute) Pulmonary hypertension (Acute) Severe tricuspid valve regurgitation (Acute) Thrombocytopenia (Acute) Tricuspid valve regurgitation (Acute) Procedures: Principal: ABD/ Pelvis CT scan. EGD. Liver Biopsy. Echo Other Procedures: LE doppler US Hospital Course: Pt came to ER with blood in the ileo-stoma bag. Pt was admitted, received PRBC. Pt was seen by Heme/ Onco (Dr. Jimenez), GI (Dr. Gill De Santiago/ [facility]), was scheduled for EGD but developed nose blee. Nose bleed stopped on its own; pt was seen by ENT (Dr. Aida Brooks). Pt had EGD, positive for duodenal bulb erosions; pt was started on IV Protonix. Pt was noticed to have significant jeart murmur, ECHO was c/w severe TR, pulmonary HTN, moderate ; pt was seen by cardiology ( Dr. Dukes). Pt had liver Bx, for liver mass; bx came back negative for malignancy. Pt H/H and platelets dropped, he received PRBC and platelets transfusions. Pt improved, H/H and platelets were monitored, became stable; Pt to be transferred back to rehab. Condition: Improved - Instructions Diet, Activity, Other Instructions: Resume Diet Monitor H/H Continue Protonix, for any change consult with Dr. Caraballo. Referrals: Regla Ivan MD [Primary Care Provider] - (within 1 week after Rehab DC) Johnathon Caraballo MD [Staff Physician] - (in 2 and 2/ months; patient needs f/ u EGD) Disposition: ASSISTED FACILITY - Home Medications Comprehensive Discharge Medication List: Ambulatory Orders This list might NOT be accurate Acetaminophen 650 mg PO ASDIR 04/16/17 Ascorbic Acid [Vitamin C] 500 mg PO DAILY 04/16/17 Diphenoxylate HCl/Atropine [Diphenoxylate-Atrop 2.5-0.025] 1 each PO Q8H Loperamide HCl [Loperamide] 2 mg PO TID 04/16/17 Melatonin 3 mg PO HS 04/16/17 Multivitamin with Minerals [Icaps Plus] 1 each PO DAILY 04/16/17 Nutritional Supplement [Hi-Ian] 120 ml PO TID 04/16/17 Ondansetron [Zofran *Odt*] 8 mg SL TID PRN 04/16/17 Prochlorperazine Maleate 10 mg PO Q8H PRN 04/16/17
--- NOTE | 2017-04-30 12:59 | PN ---
Progress Note (short form) - Note Progress Note: Case was d/w Dr. Caraballo, can switch Protonix to PO BID, need f/u EGD in 2-3 months. Case was d/w pt and pt's dg. Time spent for managing pt's DC: over 45 minutes. Problem List - Problems (1) Anemia Code(s): D64.9 - ANEMIA, UNSPECIFIED Qualifiers: Qualified Code(s): D64.9 - Anemia, unspecified (2) Leukopenia Code(s): D72.819 - DECREASED WHITE BLOOD CELL COUNT, UNSPECIFIED (3) Bleeding from colostomy stoma Code(s): K94.01 - COLOSTOMY HEMORRHAGE (4) Liver mass Code(s): R16.0 - HEPATOMEGALY, NOT ELSEWHERE CLASSIFIED (5) Epistaxis Code(s): R04.0 - EPISTAXIS (6) Colon cancer Code(s): C18.9 - MALIGNANT NEOPLASM OF COLON, UNSPECIFIED (7) Ileostomy present Code(s): Z93.2 - ILEOSTOMY STATUS (8) Severe tricuspid valve regurgitation Code(s): I07.1 - RHEUMATIC TRICUSPID INSUFFICIENCY (9) Pulmonary hypertension Code(s): I27.2 - OTHER SECONDARY PULMONARY HYPERTENSION (10) Thrombocytopenia Code(s): D69.6 - THROMBOCYTOPENIA, UNSPECIFIED
--- NOTE | 2017-04-30 13:03 | PN ---
Progress Note (short form) - Note Progress Note: Patient seen and examined. Feels great he says. He has no complaints. Otherwise ROS is negative. O/E: Cor:systolic murmur Lungs: Clear to P&A Abd: Soft, Normal bowel sounds, No organomegaly. formed stool in the colostomy bag. Site of liver biopsy with no pain or echymosses Ext:No significant edema Skin: No rashes, Integument intact LE: rt >left ( chronic) Abnormal Lab Results CBC, BMP 04/30/17 06:45 04/30/17 06:45 INR, PTT INR 1.29 (0.82-1.09) H 04/29/17 06:55 Fibrinogen 370.0 mg/dL (238-498) 04/26/17 20:15 Current Medications Generic Name Dose Route Start Last Admin Trade Name Freq PRN Reason Stop Dose Admin Acetaminophen 650 mg 04/16/17 22:30 Tylenol - PO Q6H PRN Ascorbic Acid 500 mg 04/28/17 22:00 04/30/17 10:44 Vitamin C - PO 500 mg BID [facility] Administration Ferrous Gluconate 324 mg 04/28/17 17:30 04/30/17 12:48 Fergon - PO 324 mg TIDCM [facility] Administration Loperamide HCl 2 mg 04/20/17 13:17 04/24/17 18:05 Imodium - PO 2 mg TID PRN Administration DIARRHEA Melatonin 3 mg 04/16/17 23:15 04/29/17 21:50 Melatonin PO 3 mg HS [facility] Administration Metoprolol Succinate 25 mg 04/27/17 10:00 04/30/17 10:44 Toprol Xl - PO Not Given DAILY [facility] Multivitamins/Minerals 1 each 04/17/17 12:45 04/30/17 10:44 Theragran-M PO 1 each DAILY [facility] Administration Pantoprazole Sodium 40 mg 04/30/17 22:00 Protonix - PO BID [facility] Last Vital Signs Temp Pulse Resp BP Pulse Ox 97.5 F L 72 20 101/46 95 04/30/17 10:40 04/30/17 12:14 04/30/17 12:14 04/30/17 12:14 04/29/17 21:00 Assessment/Plan: is a 76 year old male who is admitted for upper GI bleed. He also has a history of Colon cancer, presently was on adjuvant chemo with Xelox, last dose of xeloda being 04/16, with most recently CT finding of Liver mets most likely, biopsy done on 04/24 which was negative for metastasis. Anemia: -s/p PRBC and FFP -Slow ?bleeding ,likely now resolved -US liver negative for bleed -CT a/p non con - report reviewed -repeat contrast CT report reviewed -GI note reviewed -CBC today noted to be stable -iron supplements -no transfusion today -discussed with pts daughter GI bleed on admission: -s/p EGD -report reviewed -PPI -GI f/u -will need OP f.u for asymptomatic gall stones Colon cancer,imaging was with possibility of liver mets but biopsy negative: -liver biopsy done , but was negative for malignancy -will need followup with as an out patient, pt and daughter aware. Coagulopathy likely secondary to liver dz: -FFP/platelets as needed. -now PT/PTT wnl -now resolved Thrombocytopenia secondary to underlying liver dz and chemotherapy -supportive care /transfusions needed Valvular abn: cardiology follow-up appreciated OP f/u with GI/Cards/Oncology recommended
--- NOTE | 2017-04-30 13:04 | PN ---
Progress Note, Physician History of Present Illness: No complaints, repeat abd/pelvic CT did not show liver parenchymal bleed post biopsy. - Current Medication List Current Medications: Active Medications Acetaminophen (Tylenol -) 650 mg PO Q6H PRN Ascorbic Acid (Vitamin C -) 500 mg PO BID [facility] Last Admin: 04/30/17 10:44 Dose: 500 mg Ferrous Gluconate (Fergon -) 324 mg PO TIDCM [facility] Last Admin: 04/30/17 12:48 Dose: 324 mg Loperamide HCl (Imodium -) 2 mg PO TID PRN PRN Reason: DIARRHEA Last Admin: 04/24/17 18:05 Dose: 2 mg Melatonin (Melatonin) 3 mg PO HS [facility] Last Admin: 04/29/17 21:50 Dose: 3 mg Metoprolol Succinate (Toprol Xl -) 25 mg PO DAILY [facility] Last Admin: 04/30/17 10:44 Dose: Not Given Multivitamins/Minerals (Theragran-M) 1 each PO DAILY [facility] Last Admin: 04/30/17 10:44 Dose: 1 each Pantoprazole Sodium (Protonix -) 40 mg PO BID [facility] - Objective Vital Signs: Vital Signs Temperature 97.5 F L 04/30/17 10:40 Pulse Rate 72 04/30/17 12:14 Respiratory Rate 20 04/30/17 12:14 Blood Pressure 101/46 04/30/17 12:14 O2 Sat by Pulse Oximetry (%) 95 04/29/17 21:00 Constitutional: Yes: No Distress, Calm, Thin Neck: Yes: Supple Cardiovascular: Yes: Regular Rate and Rhythm, Murmur (2/6 SM) Respiratory: Yes: Regular, Diminished Gastrointestinal: Yes: Normal Bowel Sounds, Soft Edema: No Labs: CBC, BMP 04/30/17 06:45 04/30/17 06:45 INR, PTT INR 1.29 (0.82-1.09) H 04/29/17 06:55 Fibrinogen 370.0 mg/dL (238-498) 04/26/17 20:15 Problem List - Problems (1) Colon cancer metastasized to liver Code(s): C18.9 - MALIGNANT NEOPLASM OF COLON, UNSPECIFIED C78.7 - SECONDARY MALIG NEOPLASM OF LIVER AND INTRAHEPATIC BILE DUCT (2) Hemorrhage from ileostomy Code(s): K94.11 - ENTEROSTOMY HEMORRHAGE (3) Pulmonary hypertension Code(s): I27.2 - OTHER SECONDARY PULMONARY HYPERTENSION (4) Diastolic dysfunction Code(s): I51.9 - HEART DISEASE, UNSPECIFIED (5) Moderate aortic valve stenosis Code(s): I35.0 - NONRHEUMATIC AORTIC (VALVE) STENOSIS (6) Pancytopenia due to chemotherapy Code(s): D61.810 - ANTINEOPLASTIC CHEMOTHERAPY INDUCED PANCYTOPENIA (7) Severe tricuspid valve regurgitation Code(s): I07.1 - RHEUMATIC TRICUSPID INSUFFICIENCY Assessment/Plan 04/19/2017 Echo: Normal LV size and fxn, severe TR, RVSP 40-50 mmHg, mod 1. Aortic valve disease, aortic valve stenosis moderate in severity - asymptomatic 2. Diastolic LV dysfunction with class 0-I NYHA classification LV failure, euvolemic 3. Moderate TR with moderate degree of pulmonary HTN 4. HTN 5. Metastatic colon carcinoma post resection with ileostomy and stomal bleed on palliative chemotherapy as outpatient 6. Liver mass, negative for metastasis 6. Ojeda-cytopenia post PRBC transfusion PLAN: 1. Continue Toprol XL 25 qd and start losartan 25 qd as hemodynamics tolerate 2. Outpatient F/U recommended for the above noted valvular pathologies. 3. D/c planning with f/u of valvular heart disease in office
[2017-04-30] MEDS ORDERED: PANTOPRAZOLE 40 MG TABLET (FP) PO SCH (22:00)
== END 2017-04-30 15:21 | DRG 374 ==
LOC: JER 11:21 → JERBED 17:12 → J5S 19:06
PROVIDERS: ADMIT Specialist; ATTEND Specialist
PROC: 0DB98ZX Excision of Duodenum, Via Natural or Artificial Opening Endoscopic, Diagnostic (ICD-10-PCS; 2017-04-21)
PROC: 0FB13ZX Excision of Right Lobe Liver, Percutaneous Approach, Diagnostic (ICD-10-PCS; 2017-04-24)
PROC: 30233K1 Transfusion of Nonautologous Frozen Plasma into Peripheral Vein, Percutaneous Approach (ICD-10-PCS; principal; 2017-04-25)
PROC: 30233N1 Transfusion of Nonautologous Red Blood Cells into Peripheral Vein, Percutaneous Approach (ICD-10-PCS; 2017-04-25)
PROC: 30233R1 Transfusion of Nonautologous Platelets into Peripheral Vein, Percutaneous Approach (ICD-10-PCS; 2017-04-26)
DX: C18.9 Malignant neoplasm of colon, unspecified (principal); D61.810 Antineoplastic chemotherapy induced pancytopenia; K94.11 Enterostomy hemorrhage; K29.81 Duodenitis with bleeding; D68.9 Coagulation defect, unspecified; C78.7 Secondary malignant neoplasm of liver and intrahepatic bile duct; I10 Essential (primary) hypertension; Z96.641 Presence of right artificial hip joint; D64.9 Anemia, unspecified; D69.6 Thrombocytopenia, unspecified; M19.90 Unspecified osteoarthritis, unspecified site; R04.0 Epistaxis; R16.0 Hepatomegaly, not elsewhere classified; D72.819 Decreased white blood cell count, unspecified; I36.1 Nonrheumatic tricuspid (valve) insufficiency; K44.9 Diaphragmatic hernia without obstruction or gangrene; I27.2 Other secondary pulmonary hypertension
CPT/HCPCS: 36415; 36430; 74176-TC; 74177-TC; 74178-TC; 76705-TC; 76942-TC; 80048; 80053; 80076; 81003; 82248; 82378; 82607; 82728; 82746; 83010; 83516; 83540; 83550; 83615; 83690; 85025; 85027; 85044; 85384; 85610; 85730; 86850; 86880; 86900; 86901; 86922; 87899; 88305-TC; 88307-TC; 88341-TC; 93005; 93010; 93306-TC; 93970-TC; 99285-25; P9017; P9034; P9038; P9058

== ENCOUNTER 2017-06-15 09:24 | Day surgery (SDC) | payer OTHER ==
[2017-06-14 16:32] VITALS: BMI 25.0
[2017-06-15 10:17] LABS: MCH 32.4 pg (25.7-33.7); MCHC 33.7 g/dl (32.0-35.9); MEAN CELL VOLUME 96.1 fl (80-96); MEAN PLT VOLUME 8.3 fl (7.5-11.1); NEUTROPHILS 59.7 % (42.8-82.8); PLATELET COUNT 97 K/MM3 (134-434); RDW 23.1 % (11.9-15.9); WHITE BLOOD COUNT 4.3 K/mm3 (4.0-10.0)
[2017-06-15 10:30] LABS: INR 1.34 (0.82-1.09); PROTHROMBIN TIME (PATIENT) 14.8 SEC (9.98-11.88)
[2017-06-15 14:05] VITALS: TEMP 97.5
[2017-06-15 16:23] VITALS: BP 136/62; PULSE 60
--- NOTE | 2017-06-20 10:18 | PATH ---
Surgical Pathology Report Patient Name: FRANCINE POOLE Med. Rec. #: [id number] /Age/Gender: 1940 (Age: 76) / M Account: [id number] Location: RADIOLOGY Taken: 06/15/2017 Received: 06/15/2017 Reported: 06/20/2017 Physicians: Jovanny Hardin M.D. Specimen(s) Received LIVER BIOPSY Clinical History 78yo male with history of colon cancer now with ill-defined liver mass seen on MRI. Prior biopsy was not diagnostic. Final Diagnosis LIVER, US GUIDED CORE BIOPSY: BENIGN LIVER TISSUE WITH PATCHY REGENERATIVE ACTIVITY, PATCHY PORTAL TRACTS STEATOSIS (LIPOGRANULOMAS), FOCAL PERIDUCTAL FIBROSIS, DUCTULAR REACTION, VASCULAR DILATATION AND CONGESTION. NO MALIGNANCY IDENTIFIED. SEE COMMENT. Comment: The biopsy shows benign liver parenchyma with collections of adipocytes in the portal tract (lipogranulomas), focal periductal fibrosis with scar formation, and proliferation of bile ductules (ductular reaction). Only mild patchy portal inflammation comprised of lymphocytes is seen. There is no increase in plasma cells. No significant bile duct injury is noted. Focal hepatocyte ballooning is noted. Small blood vessels show dilatation and focal congestion. Patchy regenerative activity is seen. There is periportal, focal perivenular and perisinusoidal fibrosis highlighted by trichrome stain; no cirrhosis is seen. Iron stain shows no siderosis. No malignancy is identified. The findings may be related to chronic bile fow impairement, such as gallstones, with overlapping vascular outflow congestion and, likely secondary, liver injury with development of fibrosis/scarring and parenchymal regeneration. Clinical correlations and follow up are suggested. The case was initially discussed with Dr. Miranda and Lashawn on 06/19/17. Electronically Signed Gerson Casas M.D. Gross Description Received in formalin labeled "liver biopsy" are 2 oneil, cylindrical portions of soft tissue averaging 1.3 cm in length and 0.1 cm in diameter. The specimens are submitted in toto in one cassette. 06/15/201706/15/2017
== END 2017-06-15 16:00 ==
LOC: JRADIR 09:24
PROVIDERS: ATTEND Legal Medicine
PROC: BF45ZZZ Ultrasonography of Liver (ICD-10-PCS; principal; 2017-06-15)
PROC: 0FB03ZX Excision of Liver, Percutaneous Approach, Diagnostic (ICD-10-PCS; 2017-06-15)
DX: D37.6 Neoplasm of uncertain behavior of liver, gallbladder and bile ducts (principal); Z85.038 Personal history of other malignant neoplasm of large intestine
CPT/HCPCS: 36415; 76705-TC; 76942-TC; 85025; 85610; 87899; 88307-TC; 88313-TC

== ENCOUNTER 2017-07-18 22:38 | Emergency (ER) | payer OTHER ==
--- NOTE | 2017-07-18 22:46 | PDOC ---
History of Present Illness - General Chief Complaint: Nasal Bleeding Stated Complaint: NOSE BLEED Time Seen by Provider: 07/18/17 22:46 History Source: Patient Exam Limitations: No Limitations - History of Present Illness Initial Comments: 07/19/17 00:00 This is a 76-year-old male who comes in complaining of nosebleed. Patient said his nose is bleeding for approximately 1 hour prior to arrival in the emergency room. Patient otherwise denies any complaints. Patient denies any chest pain, shortness of breath, lightheadedness weakness or any other complaints. Patient is otherwise healthy. PAST MEDICAL HISTORY: no significant history PAST SURGICAL HISTORY: no significant history FAMILY HISTORY: no pertinant history SOCIAL HISTORY: Pt lives with syncope or any fpc MEDICATIONS: reviewed ALLERGIES: As per nursing notes Review of Systems General: No fevers or chills, no weakness, no weight loss HEENT: Nosebleed CardioVascular: No chest pain or shortness of breath Respiratory:No cough, or wheezing. Gastrointestinal: no nausea, vomitting, diarrhea or constipation, No rectal bleeding Genitourinary: No dysuria, hematuria, or frequency Musculoskeletal: No joint or muscle pain or swelling Neurologic: No headache, vertigo, dizziness or loss of consciousness Psychiatric: nor depression Skin: No rashes or easy bruising Endocrine: no increased thirst or abnormal weight change Allergic: no skin or latex allergy All other systems reviewed and normal GENERAL: The patient is awake, alert, and fully oriented, in no acute distress. HEAD: Normal with no signs of trauma., Epistaxis current and moderate amount from left naris EYES: Pupils equal, round and reactive to light, extraocular movements intact, sclera anicteric, conjunctiva clear. EXTREMITIES: Normal range of motion, no edema. NEUROLOGICAL: Normal speech, normal gait. PSYCH: Normal mood, normal affect. SKIN: Warm, Dry, normal turgor, no rashes or lesions noted. Procedure note: Direct pressure was applied to the ears for approximately 30 minutes. Post rectal pressure blood clots were removed and Elijah-Synephrine was instilled in the left nostril for 1 minute. Post Elijah-Synephrine The area that was bleeding was visualized and cauterized with silver nitrate. Patient was observed in the emergency room for another 30 minutes without any further bleeding. Patient discharged back to his fpc. Past History - Past Medical History Allergies/Adverse Reactions: Allergies Allergy/AdvReac Type Severity Reaction Status Date / Time No Known Allergies Allergy Verified 07/18/17 22:43 Home Medications: Ambulatory Orders Acetaminophen 650 mg PO ASDIR 04/16/17 Ascorbic Acid [Vitamin C] 500 mg PO DAILY 04/16/17 Diphenoxylate HCl/Atropine [Diphenoxylate-Atrop 2.5-0.025] 1 each PO Q8H Loperamide HCl [Loperamide] 2 mg PO TID 04/16/17 Melatonin 3 mg PO HS 04/16/17 Multivitamin with Minerals [Icaps Plus] 1 each PO DAILY 04/16/17 Nutritional Supplement [Hi-Ian] 120 ml PO TID 04/16/17 Ferrous Gluconate [Fergon -] 324 mg PO TIDCM tab 04/30/17 Metoprolol Succinate [Toprol XL -] 25 mg PO DAILY #30 tablet MDD 1 04/30/17 Pantoprazole Sodium [Protonix -] 40 mg PO BID #60 tablet MDD 2 04/30/17 Anemia: No Asthma: No Cancer: Yes (COLON CANCER - ILEOSTOMY-S/P CHEMO) Cardiac Disorders: No CVA: No COPD: No CHF: No Dementia: No Diabetes: No GI Disorders: No Disorders: No HTN: Yes Hypercholesterolemia: No Liver Disease: No Seizures: No Thyroid Disease: No - Surgical History Abdominal Surgery: Yes (COLON RESECTION) Orthopedic Surgery: Yes (rt hip replacement 1996, L HEEL SURGERY 2012) - Immunization History Immunization Up to Date: Yes - Suicide/Smoking/Psychosocial Hx Smoking Status: No Smoking History: Never smoked Have you smoked in the past 12 months: No Number of Cigarettes Smoked Daily: 0 Hx Alcohol Use: No Drug/Substance Use Hx: No Substance Use Type: None Hx Substance Use Treatment: No ED Treatment Course - LABORATORY CBC & Chemistry Diagram: 07/18/17 23:30 *DC/Admit/Observation/Transfer Diagnosis at time of Disposition: Anterior Epistaxis - Discharge Dispostion Disposition: HOME Condition at time of disposition: Stable Admit: No - Patient Instructions Additional Instructions: Return to the emergency department immediately with ANY new, persistent or worsening symptoms. Continue any medications as previously prescribed by your physician. You should follow up with your primary doctor as soon as possible regarding today's emergency department visit. . Please make sure your doctor reviews the results of your emergency evaluation. Thank you for coming to the Emergency Department today for your care. It was a pleasure to see you today. Please note that your evaluation is INCOMPLETE until you follow-up with your doctor.
[2017-07-18] MEDS ORDERED: SODIUM CHLORIDE 1,000 ML IV ONE (22:47)
[2017-07-18 22:54] VITALS: BP 117/63; PULSE 70; TEMP 98.8; BMI 27.0
[2017-07-18 23:49] LABS: MCH 32.9 pg (25.7-33.7); MCHC 34.2 g/dl (32.0-35.9); MEAN CELL VOLUME 96.4 fl (80-96); MEAN PLT VOLUME 8.6 fl (7.5-11.1); PLATELET COUNT 145 K/MM3 (134-434); RDW 22.7 % (11.9-15.9); WHITE BLOOD COUNT 6.8 K/mm3 (4.0-10.8)
[2017-07-19 00:15] LABS: ANISOCYTOSIS 2+; HYPOCHROMIA 1+; POLYCHROMASIA 1+
[2017-07-19 00:16] LABS: MACROCYTOSIS 1+; MICROCYTOSIS 1+
== END 2017-07-19 00:26 | disposition home or self-care (01) ==
LOC: FER 22:38
PROC: 3E0337Z Introduction of Electrolytic and Water Balance Substance into Peripheral Vein, Percutaneous Approach (ICD-10-PCS; principal; 2017-07-18)
DX: R04.0 Epistaxis (principal); I10 Essential (primary) hypertension; Z85.038 Personal history of other malignant neoplasm of large intestine
CPT/HCPCS: 36415; 85027; 96360; 99281-25